=== PATIENT | male | born 1990 | race Caucasian/White ===

== ENCOUNTER 2017-07-28 12:18 | Inpatient (IN) | payer SELFPAY ==
[2017-07-28] MEDS ORDERED: Sodium Chloride 0.9% 10 ML Syringe FLUSH PRN (12:43)
[2017-07-28] MEDS ORDERED: Ondansetron 4 MG/2 ML SDV IVPUSH ONE (12:43)
[2017-07-28] MEDS ORDERED: HYDROmorphone 0.5 MG/0.5 ML SYRINGE IVPUSH ONE ×3 (12:43→21:52)
[2017-07-28] MEDS ORDERED: Sodium Chloride 0.9% 1,000 ML IV ONE (12:43)
[2017-07-28] MEDS ORDERED: Pantoprazole 40 MG Vial IVPUSH ONE (12:43)
--- NOTE | 2017-07-28 12:51 | EDM.PDOC ---
ED HPI GENERAL MEDICAL PROBLEM - General Chief Complaint: Abdominal Pain Stated Complaint: ABDOMINAL PAIN Time Seen by Provider: 07/28/17 12:36 Source of Information: Reports: Patient History Limitations: Reports: No Limitations - History of Present Illness INITIAL COMMENTS - FREE TEXT/NARRATIVE: Patient is a 27-year-old male who presents the ED complaining of generalized abdominal discomfort with nausea and vomiting. This started approximately 2:00 this morning abruptly. Since then the vomiting has persisted. Unable to keep any liquids or foods down. He's had no diarrhea. Pain to the abdomen is described as a sharp dull achy sensation that bores through to his back. He has no history of symptoms as such. Last bowel movement was yesterday and described as normal with no blood present. He's had no bowel movement or passing gases today. He has no documented abdominal surgeries. Nor does he complain of any fever as of recent. Denies any ingestion or better questional food or recent sick contact. Patient does admit to drinking alcohol daily. States over the weekend patient consumed alcohol heavily. Normally drinks a few shots every evening. He does continue to work daily. Denies any recreational drug use. Patient does not smoke. Has no additional past medical history and currently taking no medications. He has no history of pancreatitis and or GI bleed. Denies any fever, chills, chest pain, sob, dysuria, rash, or any additional c/o' s. Treatments [employer]: Reports: Other (see below) Other Treatments [employer]: none Abdomen Pain Score (Numeric/FACES): 10 - Related Data Allergies Allergy/AdvReac Type Severity Reaction Status Date / Time No Known Allergies Allergy Verified 07/28/17 12:32 Home Meds: Home Meds . [No Known Home Meds] 07/28/17 [History] Past Medical History - Past Health History Medical/Surgical History: Denies Medical/Surgical History Social & Family History - Tobacco Use Smoking Status *Q: Never Smoker - Caffeine Use Caffeine Use: Reports: Coffee, Energy Drinks - Recreational Drug Use Recreational Drug Use: No ED ROS GENERAL - Review of Systems Review Of Systems: ROS reveals no pertinent complaints other than HPI. ED EXAM, GI/ABD - Physical Exam Exam: See Below Exam Limited By: No Limitations General Appearance: Alert, WD/WN, Moderate Distress Ears: Hearing Grossly Normal Nose: Normal Inspection Throat/Mouth: Normal Voice, No Airway Compromise Neck: Normal Inspection, Supple Respiratory/Chest: No Respiratory Distress, Lungs Clear, Normal Breath Sounds, No Accessory Muscle Use, Chest Non-Tender Cardiovascular: Normal Peripheral Pulses, Regular Rate, Rhythm GI/Abdominal Exam: Normal Bowel Sounds, Soft, No Organomegaly, No Distention, Tender (diffuse tenderness with point of maximal pain at the epigastric region. ) Back Exam: Normal Inspection. No: CVA Tenderness (L), CVA Tenderness (R) Neurological: Alert, Oriented, CN II-XII Intact, Normal Cognition, No Motor/ Sensory Deficits Psychiatric: Normal Affect, Normal Mood Skin Exam: Warm, Dry, Intact, Normal Color, No Rash Course - Vital Signs Last Recorded V/S: Last Vital Signs Temp 97.0 F 07/28/17 12:31 Pulse 107 H 07/28/17 12:31 Resp 20 07/28/17 12:31 BP 165/103 H 07/28/17 12:31 Pulse Ox 100 07/28/17 12:31 - Orders/Labs/Meds Orders: Active Orders 24 hr Category Date Time Status Peripheral IV Care [RC] . DIRECTED Care 07/28/17 12:43 Active DRUG SCREEN, URINE [URCHEM] Stat Lab 07/28/17 12:35 Ordered LDH, ISOENZYMES [REF] Stat Lab 07/28/17 16:11 Ordered LIPID PANEL [CHEM] Stat Lab 07/28/17 16:11 Ordered UA W/MICROSCOPIC [URIN] Stat Lab 07/28/17 12:35 Ordered Sodium Chloride 0.9% [Normal Saline] 1,000 ml Med 07/28/17 12:43 Active IV ONETIME Sodium Chloride 0.9% [Saline Flush] Med 07/28/17 12:43 Active 10 ml FLUSH ASDIRECTED PRN Peripheral IV Insertion Adult [OM.PC] Routine Oth 07/28/17 12:43 Ordered Medication Orders Sodium Chloride (Normal Saline) 1,000 mls @ 250 mls/hr IV ONETIME ONE Stop: 07/28/17 16:42 Last Admin: 07/28/17 12:56 Dose: 250 mls/hr Sodium Chloride (Saline Flush) 10 ml FLUSH ASDIRECTED PRN PRN Reason: Keep Vein Open Last Admin: 07/28/17 12:55 Dose: 10 ml Labs: Laboratory Tests 07/28/17 07/28/17 07/28/17 Range/Units 12:35 12:35 12:55 WBC 11.22 H (4.23-9.07) K/mm3 RBC 4.49 L (4.63-6.08) M/mm3 Hgb 16.0 (13.7-17.5) gm/L Hct 44.9 (40.1-51.0) % MCV 100.0 H (79.0-92.2) fl MCH 35.6 H (25.7-32.2) pg MCHC 35.6 H (32.2-35.5) g/dl RDW Std Deviation 51.1 H (35.1-43.9) fL Plt Count 288 (163-337) K/mm3 MPV 9.7 (9.4-12.3) fl Neutrophils % (Manual) 76 H (40-60) % Band Neutrophils % 9 (0-10) % Lymphocytes % (Manual) 10 L (20-40) % Atypical Lymphs % 0 % Monocytes % (Manual) 5 (2-10) % Eosinophils % (Manual) 0 L (0.8-7.0) % Basophils % (Manual) 0 L (0.2-1.2) Platelet Estimate Adequate RBC Morph Comment Normal Sodium (136-145) mEq/L Potassium (3.5-5.1) mEq/L Chloride (98-107) mEq/L Carbon Dioxide (21-32) mEq/L Anion Gap (5-15) BUN (7-18) mg/dL Creatinine (0.7-1.3) mg/dL Est Cr Clr Drug Dosing mL/min Estimated GFR (MDRD) (>60) mL/min BUN/Creatinine Ratio (14-18) Glucose (74-106) mg/dL Hemoglobin A1c (4.50-6.20) % Calcium (8.5-10.1) mg/dL Total Bilirubin (0.2-1.0) mg/dL AST (15-37) U/L ALT (16-63) U/L Alkaline Phosphatase (46-116) U/L C-Reactive Protein (<1.0) mg/dL Total Protein (6.4-8.2) g/dl Albumin (3.4-5.0) g/dl Globulin gm/dL Albumin/Globulin Ratio (1-2) Lipase (73-393) U/L Urine Color Yellow (Yellow) Urine Appearance Clear (Clear) Urine pH 6.0 (5.0-8.0) Ur Specific [place] > or = 1.030 (1.005-1.030) Urine Protein 1+ H (Negative) Urine Glucose (UA) Negative (Negative) Urine Ketones Negative (Negative) Urine Occult Blood Negative (Negative) Urine Nitrite Negative (Negative) Urine Bilirubin Negative (Negative) Urine Urobilinogen 0.2 (0.2-1.0) Ur Leukocyte Esterase Negative (Negative) Urine RBC 0-5 (0-5) /hpf Urine WBC 0-5 (0-5) /hpf Ur Epithelial Cells Not seen (0-5) /hpf Urine Bacteria Few (FEW) /hpf Urine Mucus Few (FEW) /hpf Urine Opiates Screen Presumptive positive H (NEGATIVE) Ur Buprenorphine Scrn Negative (NEGATIVE) Ur Oxycodone Screen Negative (NEGATIVE) Urine Methadone Screen Negative (NEGATIVE) Ur Propoxyphene Screen Negative (NEGATIVE) Ur Barbiturates Screen Negative (NEGATIVE) Ur Tricyclics Screen Negative (NEGATIVE) Ur Phencyclidine Scrn Negative (NEGATIVE) Ur Amphetamine Screen Negative (NEGATIVE) U Methamphetamines Scrn Negative (NEGATIVE) U Benzodiazepines Scrn Presumptive positive H (NEGATIVE) U Cocaine Metab Screen Presumptive positive H (NEGATIVE) U Marijuana (THC) Screen Negative (NEGATIVE) Ethyl Alcohol (0.00) gm% 07/28/17 07/28/17 07/28/17 Range/Units 12:55 12:55 12:55 WBC (4.23-9.07) K/mm3 RBC (4.63-6.08) M/mm3 Hgb (13.7-17.5) gm/L Hct (40.1-51.0) % MCV (79.0-92.2) fl MCH (25.7-32.2) pg MCHC (32.2-35.5) g/dl RDW Std Deviation (35.1-43.9) fL Plt Count (163-337) K/mm3 MPV (9.4-12.3) fl Neutrophils % (Manual) (40-60) % Band Neutrophils % (0-10) % Lymphocytes % (Manual) (20-40) % Atypical Lymphs % % Monocytes % (Manual) (2-10) % Eosinophils % (Manual) (0.8-7.0) % Basophils % (Manual) (0.2-1.2) Platelet Estimate RBC Morph Comment Sodium 142 (136-145) mEq/L Potassium 3.5 (3.5-5.1) mEq/L Chloride 100 (98-107) mEq/L Carbon Dioxide 27 (21-32) mEq/L Anion Gap 18.5 H (5-15) BUN 5 L (7-18) mg/dL Creatinine 1.0 (0.7-1.3) mg/dL Est Cr Clr Drug Dosing 131.29 mL/min Estimated GFR (MDRD) > 60 (>60) mL/min BUN/Creatinine Ratio 5.0 L (14-18) Glucose 160 H (74-106) mg/dL Hemoglobin A1c 5.00 (4.50-6.20) % Calcium 8.9 (8.5-10.1) mg/dL Total Bilirubin 0.5 (0.2-1.0) mg/dL AST 53 H (15-37) U/L ALT 52 (16-63) U/L Alkaline Phosphatase 70 (46-116) U/L C-Reactive Protein < 0.2 (<1.0) mg/dL Total Protein 7.4 (6.4-8.2) g/dl Albumin 4.4 (3.4-5.0) g/dl Globulin 3.0 gm/dL Albumin/Globulin Ratio 1.5 (1-2) Lipase 5814 H (73-393) U/L Urine Color (Yellow) Urine Appearance (Clear) Urine pH (5.0-8.0) Ur Specific [place] (1.005-1.030) Urine Protein (Negative) Urine Glucose (UA) (Negative) Urine Ketones (Negative) Urine Occult Blood (Negative) Urine Nitrite (Negative) Urine Bilirubin (Negative) Urine Urobilinogen (0.2-1.0) Ur Leukocyte Esterase (Negative) Urine RBC (0-5) /hpf Urine WBC (0-5) /hpf Ur Epithelial Cells (0-5) /hpf Urine Bacteria (FEW) /hpf Urine Mucus (FEW) /hpf Urine Opiates Screen (NEGATIVE) Ur Buprenorphine Scrn (NEGATIVE) Ur Oxycodone Screen (NEGATIVE) Urine Methadone Screen (NEGATIVE) Ur Propoxyphene Screen (NEGATIVE) Ur Barbiturates Screen (NEGATIVE) Ur Tricyclics Screen (NEGATIVE) Ur Phencyclidine Scrn (NEGATIVE) Ur Amphetamine Screen (NEGATIVE) U Methamphetamines Scrn (NEGATIVE) U Benzodiazepines Scrn (NEGATIVE) U Cocaine Metab Screen (NEGATIVE) U Marijuana (THC) Screen (NEGATIVE) Ethyl Alcohol 0.00 (0.00) gm% Meds: Medications Generic Name Dose Route Start Last Admin Trade Name Freq PRN Reason Stop Dose Admin Sodium Chloride 1,000 mls @ 250 mls/hr 07/28/17 12:43 07/28/17 12:56 Normal Saline IV 07/28/17 16:42 250 mls/hr ONETIME ONE Administration Sodium Chloride 10 ml 07/28/17 12:43 07/28/17 12:55 Saline Flush FLUSH 10 ml ASDIRECTED PRN Administration Keep Vein Open Discontinued Medications Generic Name Dose Route Start Last Admin Trade Name Freq PRN Reason Stop Dose Admin Diatrizoate Meglum/Diatrizoate Sod 90 ml 07/28/17 14:36 07/28/17 15:48 Gastrografin 37% PO 07/28/17 14:37 90 ml ONETIME ONE Administration Dicyclomine HCl 20 mg 07/28/17 14:14 07/28/17 14:28 Bentyl PO 07/28/17 14:15 20 mg ONETIME ONE Administration Hydromorphone HCl 0.5 mg 07/28/17 12:43 07/28/17 12:56 Dilaudid IVPUSH 07/28/17 12:44 0.5 mg ONETIME ONE Administration Hydromorphone HCl 0.5 mg 07/28/17 14:53 07/28/17 15:03 Dilaudid IVPUSH 07/28/17 14:54 0.5 mg ONETIME ONE Administration Iopamidol 125 ml 07/28/17 14:36 07/28/17 15:48 Isovue-300 (61%) IVPUSH 07/28/17 14:37 125 ml ONETIME ONE Administration Ondansetron HCl 4 mg 07/28/17 12:43 07/28/17 12:55 Zofran IVPUSH 07/28/17 12:44 4 mg ONETIME ONE Administration Pantoprazole Sodium 40 mg 07/28/17 12:43 07/28/17 12:55 Protonix Iv IVPUSH 07/28/17 12:44 40 mg ONETIME ONE Administration Sodium Chloride 10 ml 07/28/17 14:36 07/28/17 15:48 Saline Flush FLUSH 07/28/17 14:37 10 ml ONETIME ONE Administration - Re-Assessments/Exams Free Text/Narrative Re-Assessment/Exam: On examination patient is quite uncomfortable with point maximal pain is to the epigastric region. Patient does consume alcohol on a chronic basis daily. Denies being a alcoholic. He's been unable to keep any liquids or foods down. Suspect cause of discomfort is most likely pancreatitis. IV established with normal saline, Dilaudid 0.5 mg IVP, Zofran 4 mg IVP, and Protonix 40 mg IVP. Initial labs and studies include CBC, chem 14, CRP, urine drug test, lipase, UA , serum EtOH, and CT the abdomen and pelvis with oral and IV contrast. Oral contrast started after n/v subsides. 07/28/17 12:[address] machine is down for about 2 hrs. Will order 2 view of the abdomen. If no finding concerning for obstruction will order abdomen limited ultrasound. 07/28/17 13:20 Reviewed x-ray of the abdomen with Dr. Shannon. No signs of obstruction. Increased stool pattern noted. Will await for all labs prior to obtaining additional studies. 07/28/17 14:14 Reassessment, patient states pain is still a 6/10 admits to utilizing all positive findings on urine drug tox. States last used 1 month prior. Continue to have pain to the abdomen sharp in nature. Ordered bentyl 20mg PO. Labs reviewed: White blood cell 11.22, hemoglobin 16.0, MCV elevated at 100 suggesting chronic alcoholism, platelet count 288, mildly increasing neutrophil percentage with no left shift. Sodium 142, potassium 3.5, hCG elevated 18.5, creatinine 1.0, glucose 160, AST 53, CRP less than 0.2, and lipase 5814. Patient has acute pancreatitis. LFTs indicated only mild elevation in AST at 53. No increase in total bilirubin or alk phosphatase. UA positive for protein one plus. No concerning findings. Urine drug tox positive for opiates, benzodiazepines, cocaine. Serum EtOH 0.00. CT the abdomen and pelvis pending. 07/28/17 15:32 A1C 5.oo. patient is not a diabetic. 07/28/17 16:02 CT of the abdomen/pelvis impression: 1. Findings compatible with fairly severe pancreatitis. Fluid noted within the paracolic gutters extending into the pelvis. 2. Fatty infiltration within the liver. 3. Small hiatal hernia with gastroesophageal reflux of contrast. [address] Melchor with no answer will try again in a few minutes. 07/28/17 16:[address] Melchor. He has agreed to accept the patient. Requests ICU placement. Departure - Departure Time of Disposition: 14:51 Disposition: Admitted As Inpatient 68 Condition: Good Clinical Impression: Drug dependence, Alcoholism /alcohol abuse Pancreatitis Qualifiers: Chronicity: acute Pancreatitis type: alcohol induced Acute pancreatitis complication: uninfected necrosis Qualified Code(s): K85.21 - Alcohol induced acute pancreatitis with uninfected necrosis - Discharge Information Instructions: Chemical Dependency, Abdominal Pain, Adult, [id number] Referrals: PCP,None [Primary Care Provider] - Forms: ED Department Discharge - My Orders Last 24 Hours: My Active Orders 07/28/17 12:35 DRUG SCREEN, URINE [URCHEM] Stat UA W/MICROSCOPIC [URIN] Stat 07/28/17 12:43 Peripheral IV Care [RC] . DIRECTED Sodium Chloride 0.9% [Normal Saline] 1,000 ml IV ONETIME Sodium Chloride 0.9% [Saline Flush] 10 ml FLUSH ASDIRECTED PRN Peripheral IV Insertion Adult [OM.PC] Routine - Assessment/Plan Last 24 Hours: My Active Orders 07/28/17 12:35 DRUG SCREEN, URINE [URCHEM] Stat UA W/MICROSCOPIC [URIN] Stat 07/28/17 12:43 Peripheral IV Care [RC] . DIRECTED Sodium Chloride 0.9% [Normal Saline] 1,000 ml IV ONETIME Sodium Chloride 0.9% [Saline Flush] 10 ml FLUSH ASDIRECTED PRN Peripheral IV Insertion Adult [OM.PC] Routine
[2017-07-28] MEDS ORDERED: Dicyclomine 10 MG Cap PO ONE (14:14)
--- NOTE | 2017-07-28 14:34 | CR ---
Abdomen: Supine and upright views of the abdomen were obtained. Comparison: No previous study. Bowel gas pattern is normal. Small calcification is seen within the lower left pelvis most likely phlebolith. Minimal scoliosis is noted within the spine. No free air is seen. No soft tissue abnormality is seen. Impression: 1. Incidental findings. Diagnostic code #2
[2017-07-28] MEDS ORDERED: Diatrizoate Meglumine/Diatrizoate Sodium 37% 120 ML Bottle PO ONE (14:36)
[2017-07-28] MEDS ORDERED: Iopamidol 612 MG/ML 150 ML Bottle IVPUSH ONE (14:36)
[2017-07-28] MEDS: Sodium Chloride 0.9% 10 ML Syringe FLUSH ONE ×2 (15:04→15:48)
--- NOTE | 2017-07-28 16:02 | CT ---
CT abdomen and pelvis Technique: Multiple axial sections were obtained from above the dome of the diaphragm inferiorly through the pubic symphysis. Intravenous and oral contrast was utilized. Delayed images were also obtained from above the dome of the diaphragm inferiorly to the pubic symphysis. Comparison: Prior abdominal x-ray performed earlier on the same day. Findings: Small portion of the visualized lung bases are clear. Liver shows mild fatty infiltration. Spleen appears within normal limits. Small hiatal hernia is seen with gastroesophageal reflux of contrast. Adrenal glands show no nodule. Gallbladder contains no calcified gallstones. Kidneys show contrast enhancement without hydronephrosis or mass. Delayed images shows contrast excretion from both kidneys as well as contrast within nondilated ureters and contrast also seen within the bladder. Diffuse inflammatory change is seen around the pancreas. Fluid is seen within both paracolic gutters as well as within the pelvis. No loculated fluid collection are seen at this time. Aorta shows no aneurysmal dilatation. No retroperitoneal adenopathy or mesenteric abnormalities are seen. No additional pelvic abnormality is seen. Bone window settings were reviewed which appear within normal limits for the patient's age. Impression: 1. Findings compatible with fairly severe pancreatitis. Fluid noted within the paracolic gutters extending into the pelvis. 2. Fatty infiltration within the liver. 3. Small hiatal hernia with gastroesophageal reflux of contrast. Diagnostic code #5
[2017-07-28] MEDS ORDERED: LORazepam 2 MG/ML SDV IVPUSH PRN (17:26)
[2017-07-28] MEDS ORDERED: Metoprolol Tartrate 5 MG/5 ML SDV IVPUSH PRN (17:26)
[2017-07-28] MEDS ORDERED: Ondansetron 4 MG/2 ML SDV IV PRN (17:39)
[2017-07-28] MEDS ORDERED: Bisacodyl 5 MG Tab PO PRN (17:39)
[2017-07-28] MEDS ORDERED: Albuterol/Ipratropium 3.0-0.5 MG/3 ML Neb Soln NEB PRN (17:39)
[2017-07-28] MEDS ORDERED: Docusate Sodium 100 MG Cap PO PRN (17:39)
[2017-07-28] MEDS ORDERED: Polyethylene Glycol 3350 Powder 17 GM Packet PO PRN (17:39)
[2017-07-28] MEDS ORDERED: Promethazine 12.5 MG in Sodium Chloride 0.9% 50 ML IV PRN (17:39)
[2017-07-28] MEDS ORDERED: cloNIDine 0.1 MG Tab PO PRN (17:50)
[2017-07-28] MEDS: HYDROmorphone 0.5 MG/0.5 ML SYRINGE IVPUSH PRN ×2 (18:14→19:59)
[2017-07-28] MEDS: Ibuprofen 600 MG Tab PO PRN (18:15)
[2017-07-28] MEDS: Potassium Chloride 20 MEQ Tab.ER PO SCH ×4 (18:15→22:41)
--- NOTE | 2017-07-28 18:22 | PCM.HP ---
H&P History of Present Illness - General Date of Service: 07/28/17 Admit Problem/Dx: Admission Diagnosis/Problem Admission Diagnosis/Problem Pancreatitis Source of Information: Patient, Family, Provider History Limitations: Reports: No Limitations - History of Present Illness Initial Comments - Free Text/Narative: This is a 27 yo male with past medical hx/o EtOH and drug abuse who comes in for abdominal pain, nausea and vomiting. Pain started at 2 AM this morning, patient rates it a 10 out of 10 and describes it as a sharp, dull, achy sensation that bores through to his back. He reports no fever, chills, headache , diarrhea, chest pain, shortness of breath, or complaints. His symptoms improved after receiving IV fluids, Zofran, Dilaudid, Bentyl, and Protonix in the ED. His initial workup in the ED showed a CBC with Hgb 16, Hct 44.9, Plt 288, remarkable for elevated WBC 11.22 and MCV 100. His chemistry showed Na 142, potassium 3.5, BUN 5, creatinine 1.0, ALT 52, CRP <0.02 and is remarkable for elevated glucose 160, Anion Gap 18.5, AST 53, and lipase 5814. UA is not impressive for UTI. Toxicology screen is positive for opiates, benzodiazepines, cocaine and negative for EtOH. Abdominal X-ray shows no acute abnormal findings. Abdominal CT showed severe pancreatitis. He is subsequently admitted to the ICU. He is a full code. Abdomen Pain Score (Numeric/FACES): 10 - Related Data Allergies/Adverse Reactions: Allergies Allergy/AdvReac Type Severity Reaction Status Date / Time No Known Allergies Allergy Verified 07/28/17 12:32 Home Medications: Home Meds . [No Known Home Meds] 07/28/17 [History] Past Medical History - Past Health History Medical/Surgical History: Denies Medical/Surgical History Social & Family History - Tobacco Use Smoking Status *Q: Never Smoker - Caffeine Use Caffeine Use: Reports: Coffee, Energy Drinks - Recreational Drug Use Recreational Drug Use: No H&P Review of Systems - Review of Systems: Review Of Systems: See Below General: Reports: No Symptoms. Denies: Fever, Chills HEENT: Reports: No Symptoms, Glasses Pulmonary: Reports: No Symptoms Cardiovascular: Reports: No Symptoms Gastrointestinal: Reports: Abdominal Pain (11/27). Denies: Bloody Stool, Diarrhea, Decreased Appetite Genitourinary: Reports: No Symptoms Musculoskeletal: Reports: No Symptoms Skin: Reports: No Symptoms Psychiatric: Reports: No Symptoms Neurological: Reports: No Symptoms Hematologic/Lymphatic: Reports: No Symptoms Immunologic: Reports: No Symptoms Exam - Exam Exam: See Below - Vital Signs Vital Signs: Last Vital Signs Temp 97.0 F 07/28/17 12:31 Pulse 107 H 07/28/17 12:31 Resp 20 07/28/17 12:31 BP 165/103 H 07/28/17 12:31 Pulse Ox 100 07/28/17 12:31 Weight: 190 lb - Exam Quality Assessment: No: Supplemental Oxygen General: Alert, Oriented, Cooperative, Moderate Distress HEENT: Conjunctiva Clear, EACs Clear, EOMI, Hearing Intact, Mucosa Moist & [place] , Nares Patent, Normal Nasal Septum, Posterior Pharynx Clear, Glasses Neck: Supple, Trachea Midline, 2 Lungs: Clear to Auscultation, Normal Respiratory Effort Cardiovascular: Regular Rhythm, Tachycardia GI/Abdominal Exam: Normal Bowel Sounds, Soft, No Organomegaly, No Distention, Tender (diffuse tenderness, maximal pain in epigastric region) (Male) Exam: Deferred Rectal (Males) Exam: Deferred Back Exam: Normal Inspection, Full Range of Motion, NT Extremities: Normal Inspection, Normal Range of Motion, Non-Tender, No Pedal Edema, Normal Capillary Refill Peripheral Pulses: 2+: Posterior Tibial (L), Posterior Tibial (R), Dorsalis Pedis (L), Dorsalis Pedis (R) Skin: Warm, Dry, Intact Neurological: Cranial Nerves Intact (grossly) Neuro Extensive - Mental Status: Alert, Oriented x3, Normal Mood/Affect, Normal Cognition - Patient Data Lab Results Last 24 hrs: Laboratory Results - last 24 hr 07/28/17 07/28/17 07/28/17 Range/Units 12:35 12:35 12:55 WBC 11.22 H (4.23-9.07) K/mm3 RBC 4.49 L (4.63-6.08) M/mm3 Hgb 16.0 (13.7-17.5) gm/L Hct 44.9 (40.1-51.0) % MCV 100.0 H (79.0-92.2) fl MCH 35.6 H (25.7-32.2) pg MCHC 35.6 H (32.2-35.5) g/dl RDW Std Deviation 51.1 H (35.1-43.9) fL Plt Count 288 (163-337) K/mm3 MPV 9.7 (9.4-12.3) fl Neutrophils % (Manual) 76 H (40-60) % Band Neutrophils % 9 (0-10) % Lymphocytes % (Manual) 10 L (20-40) % Atypical Lymphs % 0 % Monocytes % (Manual) 5 (2-10) % Eosinophils % (Manual) 0 L (0.8-7.0) % Basophils % (Manual) 0 L (0.2-1.2) Platelet Estimate Adequate RBC Morph Comment Normal Sodium (136-145) mEq/L Potassium (3.5-5.1) mEq/L Chloride (98-107) mEq/L Carbon Dioxide (21-32) mEq/L Anion Gap (5-15) BUN (7-18) mg/dL Creatinine (0.7-1.3) mg/dL Est Cr Clr Drug Dosing mL/min Estimated GFR (MDRD) (>60) mL/min BUN/Creatinine Ratio (14-18) Glucose (74-106) mg/dL Hemoglobin A1c (4.50-6.20) % Calcium (8.5-10.1) mg/dL Total Bilirubin (0.2-1.0) mg/dL AST (15-37) U/L ALT (16-63) U/L Alkaline Phosphatase (46-116) U/L Lactate Dehydrogenase (85-227) U/L C-Reactive Protein (<1.0) mg/dL Total Protein (6.4-8.2) g/dl Albumin (3.4-5.0) g/dl Globulin gm/dL Albumin/Globulin Ratio (1-2) Triglycerides (<150) mg/dL Cholesterol (<200) mg/dL LDL Cholesterol Direct (<100) mg/dL HDL Cholesterol (40-59) mg/dL Lipase (73-393) U/L Urine Color Yellow (Yellow) Urine Appearance Clear (Clear) Urine pH 6.0 (5.0-8.0) Ur Specific Dennis > or = 1.030 (1.005-1.030) Urine Protein 1+ H (Negative) Urine Glucose (UA) Negative (Negative) Urine Ketones Negative (Negative) Urine Occult Blood Negative (Negative) Urine Nitrite Negative (Negative) Urine Bilirubin Negative (Negative) Urine Urobilinogen 0.2 (0.2-1.0) Ur Leukocyte Esterase Negative (Negative) Urine RBC 0-5 (0-5) /hpf Urine WBC 0-5 (0-5) /hpf Ur Epithelial Cells Not seen (0-5) /hpf Urine Bacteria Few (FEW) /hpf Urine Mucus Few (FEW) /hpf Urine Opiates Screen Presumptive positive H (NEGATIVE) Ur Buprenorphine Scrn Negative (NEGATIVE) Ur Oxycodone Screen Negative (NEGATIVE) Urine Methadone Screen Negative (NEGATIVE) Ur Propoxyphene Screen Negative (NEGATIVE) Ur Barbiturates Screen Negative (NEGATIVE) Ur Tricyclics Screen Negative (NEGATIVE) Ur Phencyclidine Scrn Negative (NEGATIVE) Ur Amphetamine Screen Negative (NEGATIVE) U Methamphetamines Scrn Negative (NEGATIVE) U Benzodiazepines Scrn Presumptive positive H (NEGATIVE) U Cocaine Metab Screen Presumptive positive H (NEGATIVE) U Marijuana (THC) Screen Negative (NEGATIVE) Ethyl Alcohol (0.00) gm% 07/28/17 07/28/17 07/28/17 Range/Units 12:55 12:55 12:55 WBC (4.23-9.07) K/mm3 RBC (4.63-6.08) M/mm3 Hgb (13.7-17.5) gm/L Hct (40.1-51.0) % MCV (79.0-92.2) fl MCH (25.7-32.2) pg MCHC (32.2-35.5) g/dl RDW Std Deviation (35.1-43.9) fL Plt Count (163-337) K/mm3 MPV (9.4-12.3) fl Neutrophils % (Manual) (40-60) % Band Neutrophils % (0-10) % Lymphocytes % (Manual) (20-40) % Atypical Lymphs % % Monocytes % (Manual) (2-10) % Eosinophils % (Manual) (0.8-7.0) % Basophils % (Manual) (0.2-1.2) Platelet Estimate RBC Morph Comment Sodium 142 (136-145) mEq/L Potassium 3.5 (3.5-5.1) mEq/L Chloride 100 (98-107) mEq/L Carbon Dioxide 27 (21-32) mEq/L Anion Gap 18.5 H (5-15) BUN 5 L (7-18) mg/dL Creatinine 1.0 (0.7-1.3) mg/dL Est Cr Clr Drug Dosing 131.29 mL/min Estimated GFR (MDRD) > 60 (>60) mL/min BUN/Creatinine Ratio 5.0 L (14-18) Glucose 160 H (74-106) mg/dL Hemoglobin A1c 5.00 (4.50-6.20) % Calcium 8.9 (8.5-10.1) mg/dL Total Bilirubin 0.5 (0.2-1.0) mg/dL AST 53 H (15-37) U/L ALT 52 (16-63) U/L Alkaline Phosphatase 70 (46-116) U/L Lactate Dehydrogenase (85-227) U/L C-Reactive Protein < 0.2 (<1.0) mg/dL Total Protein 7.4 (6.4-8.2) g/dl Albumin 4.4 (3.4-5.0) g/dl Globulin 3.0 gm/dL Albumin/Globulin Ratio 1.5 (1-2) Triglycerides (<150) mg/dL Cholesterol (<200) mg/dL LDL Cholesterol Direct (<100) mg/dL HDL Cholesterol (40-59) mg/dL Lipase 5814 H (73-393) U/L Urine Color (Yellow) Urine Appearance (Clear) Urine pH (5.0-8.0) Ur Specific Dennis (1.005-1.030) Urine Protein (Negative) Urine Glucose (UA) (Negative) Urine Ketones (Negative) Urine Occult Blood (Negative) Urine Nitrite (Negative) Urine Bilirubin (Negative) Urine Urobilinogen (0.2-1.0) Ur Leukocyte Esterase (Negative) Urine RBC (0-5) /hpf Urine WBC (0-5) /hpf Ur Epithelial Cells (0-5) /hpf Urine Bacteria (FEW) /hpf Urine Mucus (FEW) /hpf Urine Opiates Screen (NEGATIVE) Ur Buprenorphine Scrn (NEGATIVE) Ur Oxycodone Screen (NEGATIVE) Urine Methadone Screen (NEGATIVE) Ur Propoxyphene Screen (NEGATIVE) Ur Barbiturates Screen (NEGATIVE) Ur Tricyclics Screen (NEGATIVE) Ur Phencyclidine Scrn (NEGATIVE) Ur Amphetamine Screen (NEGATIVE) U Methamphetamines Scrn (NEGATIVE) U Benzodiazepines Scrn (NEGATIVE) U Cocaine Metab Screen (NEGATIVE) U Marijuana (THC) Screen (NEGATIVE) Ethyl Alcohol 0.00 (0.00) gm% 07/28/17 07/28/17 Range/Units 13:55 13:55 WBC (4.23-9.07) K/mm3 RBC (4.63-6.08) M/mm3 Hgb (13.7-17.5) gm/L Hct (40.1-51.0) % MCV (79.0-92.2) fl MCH (25.7-32.2) pg MCHC (32.2-35.5) g/dl RDW Std Deviation (35.1-43.9) fL Plt Count (163-337) K/mm3 MPV (9.4-12.3) fl Neutrophils % (Manual) (40-60) % Band Neutrophils % (0-10) % Lymphocytes % (Manual) (20-40) % Atypical Lymphs % % Monocytes % (Manual) (2-10) % Eosinophils % (Manual) (0.8-7.0) % Basophils % (Manual) (0.2-1.2) Platelet Estimate RBC Morph Comment Sodium (136-145) mEq/L Potassium (3.5-5.1) mEq/L Chloride (98-107) mEq/L Carbon Dioxide (21-32) mEq/L Anion Gap (5-15) BUN (7-18) mg/dL Creatinine (0.7-1.3) mg/dL Est Cr Clr Drug Dosing mL/min Estimated GFR (MDRD) (>60) mL/min BUN/Creatinine Ratio (14-18) Glucose (74-106) mg/dL Hemoglobin A1c (4.50-6.20) % Calcium (8.5-10.1) mg/dL Total Bilirubin (0.2-1.0) mg/dL AST (15-37) U/L ALT (16-63) U/L Alkaline Phosphatase (46-116) U/L Lactate Dehydrogenase 431 H (85-227) U/L C-Reactive Protein (<1.0) mg/dL Total Protein (6.4-8.2) g/dl Albumin (3.4-5.0) g/dl Globulin gm/dL Albumin/Globulin Ratio (1-2) Triglycerides 301 H (<150) mg/dL Cholesterol 167 (<200) mg/dL LDL Cholesterol Direct 71 (<100) mg/dL HDL Cholesterol 61.0 H (40-59) mg/dL Lipase (73-393) U/L Urine Color (Yellow) Urine Appearance (Clear) Urine pH (5.0-8.0) Ur Specific Dennis (1.005-1.030) Urine Protein (Negative) Urine Glucose (UA) (Negative) Urine Ketones (Negative) Urine Occult Blood (Negative) Urine Nitrite (Negative) Urine Bilirubin (Negative) Urine Urobilinogen (0.2-1.0) Ur Leukocyte Esterase (Negative) Urine RBC (0-5) /hpf Urine WBC (0-5) /hpf Ur Epithelial Cells (0-5) /hpf Urine Bacteria (FEW) /hpf Urine Mucus (FEW) /hpf Urine Opiates Screen (NEGATIVE) Ur Buprenorphine Scrn (NEGATIVE) Ur Oxycodone Screen (NEGATIVE) Urine Methadone Screen (NEGATIVE) Ur Propoxyphene Screen (NEGATIVE) Ur Barbiturates Screen (NEGATIVE) Ur Tricyclics Screen (NEGATIVE) Ur Phencyclidine Scrn (NEGATIVE) Ur Amphetamine Screen (NEGATIVE) U Methamphetamines Scrn (NEGATIVE) U Benzodiazepines Scrn (NEGATIVE) U Cocaine Metab Screen (NEGATIVE) U Marijuana (THC) Screen (NEGATIVE) Ethyl Alcohol (0.00) gm% Result Diagrams: 07/28/17 12:55 07/28/17 12:55 - Problem List (1) Hiatal hernia with gastroesophageal reflux SNOMED Code(s): 536068471 ICD Code: K21.9 - GASTRO-ESOPHAGEAL REFLUX DISEASE WITHOUT ESOPHAGITIS; K44.9 - DIAPHRAGMATIC HERNIA WITHOUT OBSTRUCTION OR GANGRENE Status: Acute Priority: Low Current Visit: Yes (2) Alcoholism /alcohol abuse SNOMED Code(s): 5940705 ICD Code: F10.20 - ALCOHOL DEPENDENCE, UNCOMPLICATED Status: Acute Priority: High Current Visit: Yes (3) Drug dependence SNOMED Code(s): 214183045 ICD Code: F19.20 - OTHER PSYCHOACTIVE SUBSTANCE DEPENDENCE, UNCOMPLICATED Status: Acute Priority: High Current Visit: Yes (4) Pancreatitis SNOMED Code(s): 19968134 ICD Code: K85.90 - ACUTE PANCREATITIS WITHOUT NECROSIS OR INFECTION, UNSP Status: Acute Priority: High Current Visit: Yes Qualifiers: Chronicity: acute Pancreatitis type: alcohol induced Acute pancreatitis complication: uninfected necrosis Qualified Code(s): K85.21 - Alcohol induced acute pancreatitis with uninfected necrosis (5) Hypertriglyceridemia SNOMED Code(s): 779241369 ICD Code: E78.1 - PURE HYPERGLYCERIDEMIA Status: Acute Priority: Medium Current Visit: Yes Problem List Initiated/Reviewed/Updated: Yes Orders Last 24hrs: Active Orders 24 hr Category Date Time Status Admission Status [Patient Status] [ADT] Routine ADT 07/28/17 16:46 Active Ambulate [RC] ASDIRECTED Care 07/28/17 17:39 Active CIWAA Assessment [RC] Q1H Care 07/28/17 17:50 Active CIWAA Assessment [RC] Q4H Care 07/28/17 17:50 Active Cardiac Monitoring [RC] CONTINUOUS Care 07/28/17 17:40 Active Height and Weight [RC] DAILY Care 07/28/17 17:39 Active Intake and Output [RC] QSHIFT Care 07/28/17 17:40 Active Notify Provider [RC] PRN Care 07/28/17 17:50 Active Oxygen Therapy [RC] PRN Care 07/28/17 17:39 Active Peripheral IV Care [RC] . DIRECTED Care 07/28/17 12:43 Active RT Aerosol Therapy [RC] ASDIRECTED Care 07/28/17 17:45 Active Up ad Martha [RC] ASDIRECTED Care 07/28/17 17:39 Active VTE/DVT Education [RC] 09,21 Care 07/28/17 17:39 Active Vital Signs [RC] Q4HR Care 07/28/17 17:39 Active Consult for Substance Abuse [CONS] Routine Cons 07/28/17 17:22 Active Consult to Shallot Packer [CONS] Routine Cons 07/28/17 17:45 Active Consult to Spiritual Care [CONS] Routine Cons 07/28/17 17:45 Active Nothing per Oral Now Diet [DIET] Diet 07/28/17 Dinner Active ACETAMINOPHEN [CHEM] Stat Lab 07/28/17 17:40 Received BASIC METABOLIC PANEL,BMP [CHEM] AM Lab 07/29/17 05:11 Ordered BASIC METABOLIC PANEL,BMP [CHEM] AM Lab 07/30/17 05:11 Ordered BASIC METABOLIC PANEL,BMP [CHEM] AM Lab 07/31/17 05:11 Ordered BASIC METABOLIC PANEL,BMP [CHEM] AM Lab 08/01/17 05:11 Ordered BASIC METABOLIC PANEL,BMP [CHEM] AM Lab 08/02/17 05:11 Ordered C-REACTIVE PROTEIN [CHEM] AM Lab 07/29/17 05:11 Ordered C-REACTIVE PROTEIN [CHEM] AM Lab 07/30/17 05:11 Ordered C-REACTIVE PROTEIN [CHEM] AM Lab 07/31/17 05:11 Ordered C-REACTIVE PROTEIN [CHEM] AM Lab 08/01/17 05:11 Ordered C-REACTIVE PROTEIN [CHEM] AM Lab 08/02/17 05:11 Ordered CBC WITH AUTO DIFF [HEME] AM Lab 07/29/17 05:11 Ordered CBC WITH AUTO DIFF [HEME] AM Lab 07/30/17 05:11 Ordered CBC WITH AUTO DIFF [HEME] AM Lab 07/31/17 05:11 Ordered CBC WITH AUTO DIFF [HEME] AM Lab 08/01/17 05:11 Ordered CBC WITH AUTO DIFF [HEME] AM Lab 08/02/17 05:11 Ordered CRP [C-REACTIVE PROTEIN] [CHEM] Stat Lab 07/28/17 17:40 Received DRUG SCREEN, URINE [URCHEM] Stat Lab 07/28/17 12:35 Ordered LACTIC ACID [CHEM] Stat Lab 07/28/17 17:40 Received LIPASE [CHEM] AM Lab 07/29/17 05:11 Ordered MAGNESIUM [CHEM] AM Lab 07/29/17 05:11 Ordered MAGNESIUM [CHEM] AM Lab 07/30/17 05:11 Ordered MAGNESIUM [CHEM] AM Lab 07/31/17 05:11 Ordered MAGNESIUM [CHEM] AM Lab 08/01/17 05:11 Ordered MAGNESIUM [CHEM] AM Lab 08/02/17 05:11 Ordered UA W/MICROSCOPIC [URIN] Stat Lab 07/28/17 12:35 Ordered Albuterol/Ipratropium [DuoNeb 3.0-0.5 MG/3 ML] Med 07/28/17 17:39 Ordered 3 ml NEB Q4H PRN Bisacodyl [Dulcolax] Med 07/28/17 17:39 Ordered 5 mg PO DAILY PRN Dextrose 5%-0.9% NaCl [Dextrose 5%-Normal Saline] 1,000 Med 07/28/17 18:00 Ordered ml IV ASDIRECTED Docusate Sodium [Colace] Med 07/28/17 17:39 Ordered 100 mg PO BID PRN Docusate Sodium/Sennosides [Senna Plus] Med 07/28/17 17:39 Ordered 1 tab PO BID PRN Folic Acid Med 07/29/17 09:00 Ordered 1 mg PO DAILY HYDROmorphone [Dilaudid] Med 07/28/17 17:39 Ordered 0.5 mg IVPUSH Q2H PRN Ibuprofen [Motrin] Med 07/28/17 17:39 Ordered 600 mg PO Q6H PRN LORazepam [Ativan] Med 07/28/17 17:26 Active 2 mg IVPUSH Q4H PRN Magnesium Rep Pharmacy to Dose [Pharmacy to Dose - Med 07/28/17 17:30 Pending Magnesium Replacement] 1 dose .XX ASDIRECTED Metoprolol Tartrate [Lopressor] Med 07/28/17 17:26 Active 5 mg IVPUSH Q4H PRN Multivitamins,Therapeutic [Thera] Med 07/29/17 09:00 Ordered 1 each PO DAILY Ondansetron [Zofran] Med 07/28/17 17:39 Ordered 4 mg IV Q6H PRN Pantoprazole [ProTONIX IV] Med 07/28/17 21:00 Ordered 40 mg IV Q12HR Polyethylene Glycol 3350 [MiraLAX] Med 07/28/17 17:39 Ordered 17 gm PO DAILY PRN Potassium Chloride [Klor-Con M20] Med 07/28/17 17:00 Active 40 meq PO Q4H Potassium Rep Pharmacy to Dose [Pharmacy to Dose - Med 07/28/17 17:30 Pending Potassium Replacement] 1 dose .XX ASDIRECTED Promethazine [Phenergan] 12.5 mg Med 07/28/17 17:39 Ordered Sodium Chloride 0.9% [Normal Saline] 50 ml IV Q6H Sodium Chloride 0.9% [Saline Flush] Med 07/28/17 12:43 Active 10 ml FLUSH ASDIRECTED PRN Temazepam [Restoril] Med 07/28/17 17:56 Ordered 15 mg PO BEDTIME PRN Thiamine [Vitamin B-1] Med 07/29/17 09:00 Ordered 100 mg PO DAILY Thiamine [Vitamin B-1] 200 mg Med 07/28/17 17:50 Ordered Sodium Chloride 0.9% [Normal Saline] 50 ml IV DAILY chlordiazePOXIDE [Librium] Med 07/28/17 17:50 Ordered 25 mg PO Q8H PRN cloNIDine [Catapres] Med 07/28/17 17:50 Ordered 0.1 mg PO Q4H PRN hydrALAZINE [Apresoline] Med 07/28/17 17:26 Active 20 mg IVPUSH Q4H PRN oxyCODONE Med 07/28/17 17:39 Ordered 5 mg PO Q4H PRN Peripheral IV Insertion Adult [OM.PC] Routine Oth 07/28/17 12:43 Ordered Seizure Precautions [OM.PC] Routine Oth 07/28/17 17:50 Ordered Sequential Compression Device [OM.PC] Per Unit Routine Oth 07/28/17 17:40 Ordered Resuscitation Status Routine Resus Stat 07/28/17 17:39 Ordered Medication Orders Albuterol/Ipratropium (Duoneb 3.0-0.5 Mg/3 Ml) 3 ml NEB Q4H PRN PRN Reason: Shortness Of Breath/wheezing Bisacodyl (Dulcolax) 5 mg PO DAILY PRN PRN Reason: Constipation Chlordiazepoxide HCl (Librium) 25 mg PO Q8H PRN PRN Reason: Withdrawal Symptoms Clonidine HCl (Catapres) 0.1 mg PO Q4H PRN PRN Reason: Agitation Docusate Sodium (Colace) 100 mg PO BID PRN PRN Reason: Constipation Folic Acid (Folic Acid) 1 mg PO DAILY [facility] Stop: 07/31/17 09:01 Hydralazine HCl (Apresoline) 20 mg IVPUSH Q4H PRN PRN Reason: Hypertension Hydromorphone HCl (Dilaudid) 0.5 mg IVPUSH Q2H PRN PRN Reason: Pain (severe 7-10) Promethazine HCl 12.5 mg/ (Sodium Chloride) 50.5 mls @ 100 mls/hr IV Q6H PRN PRN Reason: Nausea/Vomiting Dextrose/Sodium Chloride (Dextrose 5%-Normal Saline) 1,000 mls @ 125 mls/hr IV ASDIRECTED [facility] Thiamine HCl 200 mg/ Sodium (Chloride) 52 mls @ 100 mls/hr IV DAILY ONE Stop: 07/28/17 18:21 Ibuprofen (Motrin) 600 mg PO Q6H PRN PRN Reason: Pain (moderate 4-6) Lorazepam (Ativan) 2 mg IVPUSH Q4H PRN PRN Reason: Seizures Magnesium Sulfate (Pharmacy To Dose - Magnesium Replacement) 1 dose .XX ASDIRECTED [facility] Metoprolol Tartrate (Lopressor) 5 mg IVPUSH Q4H PRN PRN Reason: Tachycardia Multivitamins (Thera) 1 each PO DAILY [facility] Ondansetron HCl (Zofran) 4 mg IV Q6H PRN PRN Reason: Nausea/Vomiting Oxycodone HCl (Oxycodone) 5 mg PO Q4H PRN PRN Reason: Pain (moderate 4-6) Pantoprazole Sodium (Protonix Iv) 40 mg IV Q12HR [facility] Polyethylene Glycol (Miralax) 17 gm PO DAILY PRN PRN Reason: Constipation Potassium Chloride (Pharmacy To Dose - Potassium Replacement) 1 dose .XX ASDIRECTED [facility] Potassium Chloride (Klor-Con M20) 40 meq PO Q4H [facility] Stop: 07/28/17 21:01 Senna/Docusate Sodium (Senna Plus) 1 tab PO BID PRN PRN Reason: Constipation Sodium Chloride (Saline Flush) 10 ml FLUSH ASDIRECTED PRN PRN Reason: Keep Vein Open Last Admin: 07/28/17 12:55 Dose: 10 ml Temazepam (Restoril) 15 mg PO BEDTIME PRN PRN Reason: Insomnia Thiamine HCl (Vitamin B-1) 100 mg PO DAILY [facility] Assessment/Plan Comment:: I/P: Acute: Severe Acute pancreatitis -Risk factors: EtOH abuse, Hypertryglyceridemia, Cocaine use -Likely 2/2 EtOH abuse, cannot rule out gallstones -Clinically looks stable -Ofelia's Criteria: 0 -WBC 11.22 -CRP 1.4 -Lactic Acid 2.6 -Anion Gap 18.5 -Lipase 5814 -Abdominal CT (07/28/17): 1. Findings compatible with fairly severe pancreatitis. Fluid noted within the paracolic gutters extending into the pelvis. 2. Fatty infiltration within the liver. 3. Small hiatal hernia with gastroesophageal reflux of contrast. -Supportive care: IV fluids, Pain control, N/V control -NPO until lipase <1000, start D5W once 3L NS given -Gallbladder U/S ordered -Serial CT if indicated EtOH abuse, chronic -CIWA protocol -MCV 100 -AST 53 -Correct vitamin deficiencies --> Multivitamin, Thiamine, Folic Acid -Consult for substance abuse Drug abuse, chronic -Positive Toxicology screen for Opiates, Cocaine, Benzodiazepines -States hasn't taken in about a month -Currently no symptoms of intoxication -Consult for substance abuse HTN, acute -160/110 -Likely 2/2 pain with Acute Pancreatitis -Metropolol -Monitor Chronic: EtOH abuse Drug abuse Hiatal hernia with gastritis--> Protonix Hypertryglyceridemia--> 301 Plan: Admit to ICU--> CT shows severe pancreatitis Other orders as indicated above Routine AM labs DVT Prophylaxis: SCD GI Prophylaxis: Protonix Full Code
[2017-07-28] MEDS: hydrALAZINE 20 MG/ML SDV IVPUSH PRN (19:02)
[2017-07-28] MEDS: Pantoprazole 40 MG Vial IV SCH (20:00)
[2017-07-28] MEDS: Sodium Chloride 0.9% 1,000 ML IV SCH ×3 (20:13→22:28)
[2017-07-28] MEDS ORDERED: Scopolamine 1.5 MG Transdermal Patch TRDERM PRN (21:48)
[2017-07-28] MEDS ORDERED: diphenhydrAMINE 50 MG/ML SDV IVPUSH ONE (21:51)
[2017-07-28] MEDS: Temazepam 15 MG Cap PO PRN ×2 (22:17→22:41)
[2017-07-28] MEDS: Dextrose 5%-0.9% NaCl 1,000 ML IV SCH (23:31)
[2017-07-29] MEDS: HYDROmorphone 0.5 MG/0.5 ML SYRINGE IVPUSH PRN ×5 (02:35→21:06)
[2017-07-29] MEDS: Ibuprofen 600 MG Tab PO PRN ×2 (05:16→19:58)
[2017-07-29] MEDS: hydrALAZINE 20 MG/ML SDV IVPUSH PRN (05:16)
[2017-07-29] MEDS: Dextrose 5%-0.9% NaCl 1,000 ML IV SCH ×4 (07:44→22:33)
[2017-07-29] MEDS: Magnesium Sulfate/Water 2 GM in Premix Bag 1 BAG IV SCH ×2 (08:11→10:23)
--- NOTE | 2017-07-29 08:23 | PCM.PN ---
- General Info Date of Service: 07/29/17 Admission Dx/Problem (Free Text): Admission Diagnosis/Problem Admission Diagnosis/Problem Pancreatitis Subjective Update: In to see Kaden. He is lying in bed. He reports 7/10 abdominal pain but states it is controlled with dilaudid. He has no other complaints. He has been urinating. He is NPO. Discussed plan of care. Discussed importance of lifestyle changes and how alcohol likely contributed to his symptoms. Nursing reports patient did admit to everything that was positive on his drug screen prior to admission. We attempted to have confirmation achieved however lab reports not enough urine was obtained. He have since given the patient opiates and ativan which would skew a repeat UDS. Nursing has no concerns. His lipase did go down slightly. Will remain NPO and increase fluids for now. Functional Status: Reports: Pain Controlled, Tolerating Diet, Ambulating, Urinating. Denies: New Symptoms - Review of Systems General: Reports: No Symptoms. Denies: Fever, Weakness, Fatigue, Malaise HEENT: Reports: No Symptoms. Denies: Eye Pain, Sore Throat, Rhinitis Pulmonary: Reports: No Symptoms. Denies: Shortness of Breath, Cough, Sputum, Wheezing Cardiovascular: Reports: No Symptoms. Denies: Chest Pain, Palpitations, Dyspnea on Exertion, Edema, Lightheadedness Gastrointestinal: Reports: Abdominal Pain (mild ). Denies: Constipation, Diarrhea, Nausea, Vomiting Genitourinary: Reports: No Symptoms. Denies: Dysuria, Frequency, Burning, Pain Musculoskeletal: Reports: No Symptoms Skin: Reports: No Symptoms Neurological: Reports: No Symptoms Psychiatric: Reports: No Symptoms - Patient Data Vitals - Most Recent: Last Vital Signs Temp 100.7 F H 07/29/17 06:35 Pulse 109 H 07/29/17 06:17 Resp 19 07/29/17 06:17 BP 138/93 H 07/29/17 06:17 Pulse Ox 96 07/29/17 06:17 Weight - Most Recent: 197 lb 1.6 oz I&O - Last 24 Hours: Intake & Output 07/28/17 07/29/17 07/29/17 22:59 06:59 14:59 Intake Total 4600 Output Total 750 Balance 3850 Lab Results Last 24 Hours: Laboratory Results - last 24 hr 04/10/18 04/10/18 04/10/18 Range/Units 12:35 12:35 12:55 WBC 11.22 H (4.23-9.07) K/mm3 RBC 4.49 L (4.63-6.08) M/mm3 Hgb 16.0 (13.7-17.5) gm/L Hct 44.9 (40.1-51.0) % MCV 100.0 H (79.0-92.2) fl MCH 35.6 H (25.7-32.2) pg MCHC 35.6 H (32.2-35.5) g/dl RDW Std Deviation 51.1 H (35.1-43.9) fL Plt Count 288 (163-337) K/mm3 MPV 9.7 (9.4-12.3) fl Neut % (Auto) (34.0-67.9) % Lymph % (Auto) (21.8-53.1) % [place] % (Auto) (5.3-12.2) % Eos % (Auto) (0.8-7.0) Baso % (Auto) (0.1-1.2) % Neut # (Auto) (1.78-5.38) K/mm3 Lymph # (Auto) (1.32-3.57) K/mm3 [place] # (Auto) (0.30-0.82) K/mm3 Eos # (Auto) (0.04-0.54) K/mm3 Baso # (Auto) (0.01-0.08) K/mm3 Neutrophils % (Manual) 76 H (40-60) % Band Neutrophils % 9 (0-10) % Lymphocytes % (Manual) 10 L (20-40) % Atypical Lymphs % 0 % Monocytes % (Manual) 5 (2-10) % Eosinophils % (Manual) 0 L (0.8-7.0) % Basophils % (Manual) 0 L (0.2-1.2) Platelet Estimate Adequate RBC Morph Comment Normal Sodium (136-145) mEq/L Potassium (3.5-5.1) mEq/L Chloride (98-107) mEq/L Carbon Dioxide (21-32) mEq/L Anion Gap (5-15) BUN (7-18) mg/dL Creatinine (0.7-1.3) mg/dL Est Cr Clr Drug Dosing mL/min Estimated GFR (MDRD) (>60) mL/min BUN/Creatinine Ratio (14-18) Glucose (74-106) mg/dL Hemoglobin A1c (4.50-6.20) % Lactic Acid (0.4-2.0) mmol/L Calcium (8.5-10.1) mg/dL Magnesium (1.8-2.4) mg/dl Total Bilirubin (0.2-1.0) mg/dL AST (15-37) U/L ALT (16-63) U/L Alkaline Phosphatase (46-116) U/L Lactate Dehydrogenase (85-227) U/L C-Reactive Protein (<1.0) mg/dL Total Protein (6.4-8.2) g/dl Albumin (3.4-5.0) g/dl Globulin gm/dL Albumin/Globulin Ratio (1-2) Triglycerides (<150) mg/dL Cholesterol (<200) mg/dL LDL Cholesterol Direct (<100) mg/dL HDL Cholesterol (40-59) mg/dL Lipase (73-393) U/L Urine Color Yellow (Yellow) Urine Appearance Clear (Clear) Urine pH 6.0 (5.0-8.0) Ur Specific [place] > or = 1.030 (1.005-1.030) Urine Protein 1+ H (Negative) Urine Glucose (UA) Negative (Negative) Urine Ketones Negative (Negative) Urine Occult Blood Negative (Negative) Urine Nitrite Negative (Negative) Urine Bilirubin Negative (Negative) Urine Urobilinogen 0.2 (0.2-1.0) Ur Leukocyte Esterase Negative (Negative) Urine RBC 0-5 (0-5) /hpf Urine WBC 0-5 (0-5) /hpf Ur Epithelial Cells Not seen (0-5) /hpf Urine Bacteria Few (FEW) /hpf Urine Mucus Few (FEW) /hpf Urine Opiates Screen Presumptive positive H (NEGATIVE) Ur Buprenorphine Scrn Negative (NEGATIVE) Ur Oxycodone Screen Negative (NEGATIVE) Urine Methadone Screen Negative (NEGATIVE) Ur Propoxyphene Screen Negative (NEGATIVE) Acetaminophen (10-30) ug/mL Ur Barbiturates Screen Negative (NEGATIVE) Ur Tricyclics Screen Negative (NEGATIVE) Ur Phencyclidine Scrn Negative (NEGATIVE) Ur Amphetamine Screen Negative (NEGATIVE) U Methamphetamines Scrn Negative (NEGATIVE) U Benzodiazepines Scrn Presumptive positive H (NEGATIVE) U Cocaine Metab Screen Presumptive positive H (NEGATIVE) U Marijuana (THC) Screen Negative (NEGATIVE) Ethyl Alcohol (0.00) gm% 07/28/17 07/28/17 07/28/17 Range/Units 12:55 12:55 12:55 WBC (4.23-9.07) K/mm3 RBC (4.63-6.08) M/mm3 Hgb (13.7-17.5) gm/L Hct (40.1-51.0) % MCV (79.0-92.2) fl MCH (25.7-32.2) pg MCHC (32.2-35.5) g/dl RDW Std Deviation (35.1-43.9) fL Plt Count (163-337) K/mm3 MPV (9.4-12.3) fl Neut % (Auto) (34.0-67.9) % Lymph % (Auto) (21.8-53.1) % [place] % (Auto) (5.3-12.2) % Eos % (Auto) (0.8-7.0) Baso % (Auto) (0.1-1.2) % Neut # (Auto) (1.78-5.38) K/mm3 Lymph # (Auto) (1.32-3.57) K/mm3 [place] # (Auto) (0.30-0.82) K/mm3 Eos # (Auto) (0.04-0.54) K/mm3 Baso # (Auto) (0.01-0.08) K/mm3 Neutrophils % (Manual) (40-60) % Band Neutrophils % (0-10) % Lymphocytes % (Manual) (20-40) % Atypical Lymphs % % Monocytes % (Manual) (2-10) % Eosinophils % (Manual) (0.8-7.0) % Basophils % (Manual) (0.2-1.2) Platelet Estimate RBC Morph Comment Sodium 142 (136-145) mEq/L Potassium 3.5 (3.5-5.1) mEq/L Chloride 100 (98-107) mEq/L Carbon Dioxide 27 (21-32) mEq/L Anion Gap 18.5 H (5-15) BUN 5 L (7-18) mg/dL Creatinine 1.0 (0.7-1.3) mg/dL Est Cr Clr Drug Dosing 131.29 mL/min Estimated GFR (MDRD) > 60 (>60) mL/min BUN/Creatinine Ratio 5.0 L (14-18) Glucose 160 H (74-106) mg/dL Hemoglobin A1c 5.00 (4.50-6.20) % Lactic Acid (0.4-2.0) mmol/L Calcium 8.9 (8.5-10.1) mg/dL Magnesium (1.8-2.4) mg/dl Total Bilirubin 0.5 (0.2-1.0) mg/dL AST 53 H (15-37) U/L ALT 52 (16-63) U/L Alkaline Phosphatase 70 (46-116) U/L Lactate Dehydrogenase (85-227) U/L C-Reactive Protein < 0.2 (<1.0) mg/dL Total Protein 7.4 (6.4-8.2) g/dl Albumin 4.4 (3.4-5.0) g/dl Globulin 3.0 gm/dL Albumin/Globulin Ratio 1.5 (1-2) Triglycerides (<150) mg/dL Cholesterol (<200) mg/dL LDL Cholesterol Direct (<100) mg/dL HDL Cholesterol (40-59) mg/dL Lipase 5814 H (73-393) U/L Urine Color (Yellow) Urine Appearance (Clear) Urine pH (5.0-8.0) Ur Specific [place] (1.005-1.030) Urine Protein (Negative) Urine Glucose (UA) (Negative) Urine Ketones (Negative) Urine Occult Blood (Negative) Urine Nitrite (Negative) Urine Bilirubin (Negative) Urine Urobilinogen (0.2-1.0) Ur Leukocyte Esterase (Negative) Urine RBC (0-5) /hpf Urine WBC (0-5) /hpf Ur Epithelial Cells (0-5) /hpf Urine Bacteria (FEW) /hpf Urine Mucus (FEW) /hpf Urine Opiates Screen (NEGATIVE) Ur Buprenorphine Scrn (NEGATIVE) Ur Oxycodone Screen (NEGATIVE) Urine Methadone Screen (NEGATIVE) Ur Propoxyphene Screen (NEGATIVE) Acetaminophen (10-30) ug/mL Ur Barbiturates Screen (NEGATIVE) Ur Tricyclics Screen (NEGATIVE) Ur Phencyclidine Scrn (NEGATIVE) Ur Amphetamine Screen (NEGATIVE) U Methamphetamines Scrn (NEGATIVE) U Benzodiazepines Scrn (NEGATIVE) U Cocaine Metab Screen (NEGATIVE) U Marijuana (THC) Screen (NEGATIVE) Ethyl Alcohol 0.00 (0.00) gm% 07/28/17 07/28/17 07/28/17 Range/Units 13:55 13:55 17:40 WBC (4.23-9.07) K/mm3 RBC (4.63-6.08) M/mm3 Hgb (13.7-17.5) gm/L Hct (40.1-51.0) % MCV (79.0-92.2) fl MCH (25.7-32.2) pg MCHC (32.2-35.5) g/dl RDW Std Deviation (35.1-43.9) fL Plt Count (163-337) K/mm3 MPV (9.4-12.3) fl Neut % (Auto) (34.0-67.9) % Lymph % (Auto) (21.8-53.1) % [place] % (Auto) (5.3-12.2) % Eos % (Auto) (0.8-7.0) Baso % (Auto) (0.1-1.2) % Neut # (Auto) (1.78-5.38) K/mm3 Lymph # (Auto) (1.32-3.57) K/mm3 [place] # (Auto) (0.30-0.82) K/mm3 Eos # (Auto) (0.04-0.54) K/mm3 Baso # (Auto) (0.01-0.08) K/mm3 Neutrophils % (Manual) (40-60) % Band Neutrophils % (0-10) % Lymphocytes % (Manual) (20-40) % Atypical Lymphs % % Monocytes % (Manual) (2-10) % Eosinophils % (Manual) (0.8-7.0) % Basophils % (Manual) (0.2-1.2) Platelet Estimate RBC Morph Comment Sodium (136-145) mEq/L Potassium (3.5-5.1) mEq/L Chloride (98-107) mEq/L Carbon Dioxide (21-32) mEq/L Anion Gap (5-15) BUN (7-18) mg/dL Creatinine (0.7-1.3) mg/dL Est Cr Clr Drug Dosing mL/min Estimated GFR (MDRD) (>60) mL/min BUN/Creatinine Ratio (14-18) Glucose (74-106) mg/dL Hemoglobin A1c (4.50-6.20) % Lactic Acid 2.6 H (0.4-2.0) mmol/L Calcium (8.5-10.1) mg/dL Magnesium (1.8-2.4) mg/dl Total Bilirubin (0.2-1.0) mg/dL AST (15-37) U/L ALT (16-63) U/L Alkaline Phosphatase (46-116) U/L Lactate Dehydrogenase 431 H (85-227) U/L C-Reactive Protein (<1.0) mg/dL Total Protein (6.4-8.2) g/dl Albumin (3.4-5.0) g/dl Globulin gm/dL Albumin/Globulin Ratio (1-2) Triglycerides 301 H (<150) mg/dL Cholesterol 167 (<200) mg/dL LDL Cholesterol Direct 71 (<100) mg/dL HDL Cholesterol 61.0 H (40-59) mg/dL Lipase (73-393) U/L Urine Color (Yellow) Urine Appearance (Clear) Urine pH (5.0-8.0) Ur Specific [place] (1.005-1.030) Urine Protein (Negative) Urine Glucose (UA) (Negative) Urine Ketones (Negative) Urine Occult Blood (Negative) Urine Nitrite (Negative) Urine Bilirubin (Negative) Urine Urobilinogen (0.2-1.0) Ur Leukocyte Esterase (Negative) Urine RBC (0-5) /hpf Urine WBC (0-5) /hpf Ur Epithelial Cells (0-5) /hpf Urine Bacteria (FEW) /hpf Urine Mucus (FEW) /hpf Urine Opiates Screen (NEGATIVE) Ur Buprenorphine Scrn (NEGATIVE) Ur Oxycodone Screen (NEGATIVE) Urine Methadone Screen (NEGATIVE) Ur Propoxyphene Screen (NEGATIVE) Acetaminophen (10-30) ug/mL Ur Barbiturates Screen (NEGATIVE) Ur Tricyclics Screen (NEGATIVE) Ur Phencyclidine Scrn (NEGATIVE) Ur Amphetamine Screen (NEGATIVE) U Methamphetamines Scrn (NEGATIVE) U Benzodiazepines Scrn (NEGATIVE) U Cocaine Metab Screen (NEGATIVE) U Marijuana (THC) Screen (NEGATIVE) Ethyl Alcohol (0.00) gm% 07/28/17 07/29/17 07/29/17 Range/Units 17:40 05:25 05:25 WBC 7.68 (4.23-9.07) K/mm3 RBC 4.13 L (4.63-6.08) M/mm3 Hgb 14.5 (13.7-17.5) gm/L Hct 42.5 (40.1-51.0) % MCV 102.9 H (79.0-92.2) fl MCH 35.1 H (25.7-32.2) pg MCHC 34.1 (32.2-35.5) g/dl RDW Std Deviation 53.6 H (35.1-43.9) fL Plt Count 240 (163-337) K/mm3 MPV 10.0 (9.4-12.3) fl Neut % (Auto) 76.8 H (34.0-67.9) % Lymph % (Auto) 10.9 L (21.8-53.1) % [place] % (Auto) 11.2 (5.3-12.2) % Eos % (Auto) 1.0 (0.8-7.0) Baso % (Auto) 0.0 L (0.1-1.2) % Neut # (Auto) 5.89 H (1.78-5.38) K/mm3 Lymph # (Auto) 0.84 L (1.32-3.57) K/mm3 [place] # (Auto) 0.86 H (0.30-0.82) K/mm3 Eos # (Auto) 0.08 (0.04-0.54) K/mm3 Baso # (Auto) 0.00 L (0.01-0.08) K/mm3 Neutrophils % (Manual) (40-60) % Band Neutrophils % (0-10) % Lymphocytes % (Manual) (20-40) % Atypical Lymphs % % Monocytes % (Manual) (2-10) % Eosinophils % (Manual) (0.8-7.0) % Basophils % (Manual) (0.2-1.2) Platelet Estimate RBC Morph Comment Sodium 141 (136-145) mEq/L Potassium 3.8 (3.5-5.1) mEq/L Chloride 105 (98-107) mEq/L Carbon Dioxide 26 (21-32) mEq/L Anion Gap 13.8 (5-15) BUN 5 L (7-18) mg/dL Creatinine 0.9 (0.7-1.3) mg/dL Est Cr Clr Drug Dosing 145.88 mL/min Estimated GFR (MDRD) > 60 (>60) mL/min BUN/Creatinine Ratio 5.6 L (14-18) Glucose 144 H (74-106) mg/dL Hemoglobin A1c (4.50-6.20) % Lactic Acid (0.4-2.0) mmol/L Calcium 7.2 L (8.5-10.1) mg/dL Magnesium 1.2 L (1.8-2.4) mg/dl Total Bilirubin (0.2-1.0) mg/dL AST (15-37) U/L ALT (16-63) U/L Alkaline Phosphatase (46-116) U/L Lactate Dehydrogenase (85-227) U/L C-Reactive Protein 1.4 H* 10.9 H* (<1.0) mg/dL Total Protein (6.4-8.2) g/dl Albumin (3.4-5.0) g/dl Globulin gm/dL Albumin/Globulin Ratio (1-2) Triglycerides (<150) mg/dL Cholesterol (<200) mg/dL LDL Cholesterol Direct (<100) mg/dL HDL Cholesterol (40-59) mg/dL Lipase 4795 H (73-393) U/L Urine Color (Yellow) Urine Appearance (Clear) Urine pH (5.0-8.0) Ur Specific [place] (1.005-1.030) Urine Protein (Negative) Urine Glucose (UA) (Negative) Urine Ketones (Negative) Urine Occult Blood (Negative) Urine Nitrite (Negative) Urine Bilirubin (Negative) Urine Urobilinogen (0.2-1.0) Ur Leukocyte Esterase (Negative) Urine RBC (0-5) /hpf Urine WBC (0-5) /hpf Ur Epithelial Cells (0-5) /hpf Urine Bacteria (FEW) /hpf Urine Mucus (FEW) /hpf Urine Opiates Screen (NEGATIVE) Ur Buprenorphine Scrn (NEGATIVE) Ur Oxycodone Screen (NEGATIVE) Urine Methadone Screen (NEGATIVE) Ur Propoxyphene Screen (NEGATIVE) Acetaminophen 0 L (10-30) ug/mL Ur Barbiturates Screen (NEGATIVE) Ur Tricyclics Screen (NEGATIVE) Ur Phencyclidine Scrn (NEGATIVE) Ur Amphetamine Screen (NEGATIVE) U Methamphetamines Scrn (NEGATIVE) U Benzodiazepines Scrn (NEGATIVE) U Cocaine Metab Screen (NEGATIVE) U Marijuana (THC) Screen (NEGATIVE) Ethyl Alcohol (0.00) gm% Med Orders - Current: Current Medications Albuterol/Ipratropium (Duoneb 3.0-0.5 Mg/3 Ml) 3 ml NEB Q4H PRN PRN Reason: Shortness Of Breath/wheezing Bisacodyl (Dulcolax) 5 mg PO DAILY PRN PRN Reason: Constipation Chlordiazepoxide HCl (Librium) 25 mg PO Q8H PRN PRN Reason: Withdrawal Symptoms Clonidine HCl (Catapres) 0.1 mg PO Q4H PRN PRN Reason: Agitation Diphtheria/Tetanus/Acell Pertussis (Adacel) 0.5 ml IM .ONCE ONE Stop: 07/29/17 08:31 Docusate Sodium (Colace) 100 mg PO BID PRN PRN Reason: Constipation Folic Acid (Folic Acid) 1 mg PO DAILY [facility] Stop: 07/31/17 09:01 Hydralazine HCl (Apresoline) 20 mg IVPUSH Q4H PRN PRN Reason: Hypertension Last Admin: 07/29/17 05:16 Dose: 20 mg Hydromorphone HCl (Dilaudid) 1 mg IVPUSH Q4H PRN PRN Reason: Pain Last Admin: 07/29/17 08:03 Dose: 1 mg Promethazine HCl 12.5 mg/ (Sodium Chloride) 50.5 mls @ 100 mls/hr IV Q6H PRN PRN Reason: Nausea/Vomiting Last Admin: 07/28/17 22:02 Dose: 100 mls/hr Dextrose/Sodium Chloride (Dextrose 5%-Normal Saline) 1,000 mls @ 125 mls/hr IV ASDIRECTED [facility] Last Admin: 07/29/17 07:44 Dose: 125 mls/hr Magnesium Sulfate 2 gm/ Premix 50 mls @ 25 mls/hr IV Q2H ORSIE Stop: 07/29/17 11:14 Last Admin: 07/29/17 08:11 Dose: 25 mls/hr Sodium Chloride (Normal Saline) 1,000 mls @ 100 mls/hr IV ASDIRECTED ROSIE Stop: 07/29/17 18:29 Ibuprofen (Motrin) 600 mg PO Q6H PRN PRN Reason: Pain (moderate 4-6) Last Admin: 07/29/17 05:16 Dose: 600 mg Lorazepam (Ativan) 2 mg IVPUSH Q4H PRN PRN Reason: Seizures Magnesium Sulfate (Pharmacy To Dose - Magnesium Replacement) 0 dose .XX ASDIRECTED PRN PRN Reason: RX TO WATCH MAG LEVELS Metoprolol Tartrate (Lopressor) 5 mg IVPUSH Q4H PRN PRN Reason: Tachycardia Miscellaneous Information (Remove Patch) 1 ea TRDERM Q72H PRN PRN Reason: patch removal Multivitamins (Thera) 1 each PO DAILY [facility] Ondansetron HCl (Zofran) 4 mg IV Q6H PRN PRN Reason: Nausea/Vomiting Last Admin: 07/28/17 19:59 Dose: 4 mg Oxycodone HCl (Oxycodone) 5 mg PO Q4H PRN PRN Reason: Pain (moderate 4-6) Pantoprazole Sodium (Protonix Iv) 40 mg IV Q12HR ROSIE Last Admin: 07/28/17 20:00 Dose: 40 mg Polyethylene Glycol (Miralax) 17 gm PO DAILY PRN PRN Reason: Constipation Potassium Chloride (Pharmacy To Dose - Potassium Replacement) 0 dose .XX ASDIRECTED PRN PRN Reason: RX TO WATCH K LEVELS Scopolamine (Transderm-Scop) 1.5 mg TRDERM Q72H PRN PRN Reason: Nausea Last Admin: 07/28/17 22:17 Dose: 1.5 mg Senna/Docusate Sodium (Senna Plus) 1 tab PO BID PRN PRN Reason: Constipation Sodium Chloride (Saline Flush) 10 ml FLUSH ASDIRECTED PRN PRN Reason: Keep Vein Open Last Admin: 07/28/17 12:55 Dose: 10 ml Temazepam (Restoril) 15 mg PO BEDTIME PRN PRN Reason: Insomnia Last Admin: 07/28/17 22:41 Dose: 15 mg Thiamine HCl (Vitamin B-1) 100 mg PO DAILY [facility] Discontinued Medications Diatrizoate Meglum/Diatrizoate Sod (Gastrografin 37%) 90 ml PO ONETIME ONE Stop: 07/28/17 14:37 Last Admin: 07/28/17 15:48 Dose: 90 ml Dicyclomine HCl (Bentyl) 20 mg PO ONETIME ONE Stop: 07/28/17 14:15 Last Admin: 07/28/17 14:28 Dose: 20 mg Diphenhydramine HCl (Benadryl) 25 mg IVPUSH ONETIME ONE Stop: 07/28/17 21:52 Last Admin: 07/28/17 22:06 Dose: 25 mg Hydromorphone HCl (Dilaudid) 0.5 mg IVPUSH ONETIME ONE Stop: 07/28/17 12:44 Last Admin: 07/28/17 12:56 Dose: 0.5 mg Hydromorphone HCl (Dilaudid) 0.5 mg IVPUSH ONETIME ONE Stop: 07/28/17 14:54 Last Admin: 07/28/17 15:03 Dose: 0.5 mg Hydromorphone HCl (Dilaudid) 0.5 mg IVPUSH Q2H PRN PRN Reason: Pain (severe 7-10) Last Admin: 07/28/17 19:59 Dose: 0.5 mg Hydromorphone HCl (Dilaudid) 1 mg IVPUSH Q4HR ONE Stop: 07/28/17 21:53 Last Admin: 07/28/17 22:16 Dose: 1 mg Sodium Chloride (Normal Saline) 1,000 mls @ 250 mls/hr IV ONETIME ONE Stop: 07/28/17 16:42 Last Admin: 07/28/17 12:56 Dose: 250 mls/hr Thiamine HCl 200 mg/ Sodium (Chloride) 52 mls @ 100 mls/hr IV ONETIME ONE Stop: 07/28/17 18:21 Last Admin: 07/28/17 20:07 Dose: Not Given Thiamine HCl 200 mg/ Sodium (Chloride) 52 mls @ 100 mls/hr IV ONETIME ONE Stop: 07/28/17 21:31 Last Admin: 07/28/17 21:22 Dose: 100 mls/hr Sodium Chloride (Normal Saline) 1,000 mls @ 999 mls/hr IV ASDIRECTED ROSIE Stop: 07/30/17 21:01 Last Admin: 07/28/17 22:28 Dose: 999 mls/hr Iopamidol (Isovue-300 (61%)) 125 ml IVPUSH ONETIME ONE Stop: 07/28/17 14:37 Last Admin: 07/28/17 15:48 Dose: 125 ml Ondansetron HCl (Zofran) 4 mg IVPUSH ONETIME ONE Stop: 07/28/17 12:44 Last Admin: 07/28/17 12:55 Dose: 4 mg Pantoprazole Sodium (Protonix Iv) 40 mg IVPUSH ONETIME ONE Stop: 07/28/17 12:44 Last Admin: 07/28/17 12:55 Dose: 40 mg Potassium Chloride (Klor-Con M20) 40 meq PO Q4H ROSIE Stop: 07/28/17 21:01 Last Admin: 07/28/17 22:41 Dose: 40 meq Sodium Chloride (Saline Flush) 10 ml FLUSH ONETIME ONE Stop: 07/28/17 14:37 Last Admin: 07/28/17 15:48 Dose: 10 ml - Exam Quality Assessment: DVT Prophylaxis General: Alert, Oriented, Cooperative, No Acute Distress HEENT: Pupils Equal, Pupils Reactive, EOMI, Mucous Membr. Moist/[place] Neck: Supple, Trachea Midline Lungs: Clear to Auscultation, Normal Respiratory Effort Cardiovascular: Regular Rate, Regular Rhythm GI/Abdominal Exam: Normal Bowel Sounds, Soft, No Organomegaly, No Distention, No Abnormal Bruit, No Mass, Pelvis Stable, Tender (MIld tenderness on plapatation in upper quadrants) (Male) Exam: Deferred Back Exam: Normal Inspection, Full Range of Motion Extremities: Normal Inspection, Normal Range of Motion, Non-Tender, No Pedal Edema, Normal Capillary Refill Peripheral Pulses: 3+: Radial (L), Radial (R), Posterior Tibial (L), Posterior Tibial (R), Dorsalis Pedis (L), Dorsalis Pedis (R) Skin: Warm, Dry, Intact Neurological: No New Focal Deficit Psy/Mental Status: Alert, Normal Affect, Normal Mood - Problem List & Annotations (1) Alcoholism /alcohol abuse SNOMED Code(s): 3806515 Code(s): F10.20 - ALCOHOL DEPENDENCE, UNCOMPLICATED Status: Acute Priority: High Current Visit: Yes (2) Drug dependence SNOMED Code(s): 773063697 Code(s): F19.20 - OTHER PSYCHOACTIVE SUBSTANCE DEPENDENCE, UNCOMPLICATED Status: Acute Priority: High Current Visit: Yes (3) Pancreatitis SNOMED Code(s): 78344435 Code(s): K85.90 - ACUTE PANCREATITIS WITHOUT NECROSIS OR INFECTION, UNSP Status: Acute Priority: High Current Visit: Yes Qualifiers: Chronicity: acute Pancreatitis type: alcohol induced Acute pancreatitis complication: uninfected necrosis Qualified Code(s): K85.21 - Alcohol induced acute pancreatitis with uninfected necrosis (4) Hiatal hernia with gastroesophageal reflux SNOMED Code(s): 420640754 Code(s): K21.9 - GASTRO-ESOPHAGEAL REFLUX DISEASE WITHOUT ESOPHAGITIS; K44.9 - DIAPHRAGMATIC HERNIA WITHOUT OBSTRUCTION OR GANGRENE Status: Acute Priority: Low Current Visit: Yes (5) Hypertriglyceridemia SNOMED Code(s): 780863007 Code(s): E78.1 - PURE HYPERGLYCERIDEMIA Status: Acute Priority: Medium Current Visit: Yes - Problem List Review Problem List Initiated/Reviewed/Updated: Yes - My Orders Last 24 Hours: My Active Orders 07/29/17 08:30 Sodium Chloride 0.9% @ 100 MLS/HR(1000ml Bag) Sodium Chloride 0.9% [Normal Saline] 1,000 ml IV ASDIRECTED - Plan Plan:: I/P: Acute: Severe Acute pancreatitis, improving -Risk factors: EtOH abuse, Hypertryglyceridemia, Cocaine use -Likely 2/2 EtOH abuse, cannot rule out gallstones although CT negative and liver enzymes good -Clinically looks stable -Oxford's Criteria: 1 on admission -WBC 11.22-->7.68 -CRP 1.4-->10.7 -Lactic Acid 2.6-->1.2 -Anion Gap 18.5-->13.8 -Lipase 5814-->4795 -Abdominal CT (07/28/17): 1. Findings compatible with fairly severe pancreatitis. Fluid noted within the paracolic gutters extending into the pelvis. 2. Fatty infiltration within the liver. 3. Small hiatal hernia with gastroesophageal reflux of contrast. -Supportive care: IV fluids, Pain control, N/V control -NPO until lipase <1000, start D5W once 3L NS given -Gallbladder U/S ordered -Serial CT if indicated EtOH abuse, chronic -[facility] protocol -MCV 100-->102.9 -AST 53 -Correct vitamin deficiencies --> Multivitamin, Thiamine, Folic Acid -Consult for substance abuse Drug abuse, chronic -Positive Toxicology screen for Opiates, Cocaine, Benzodiazepines -States hasn't taken in about a month -Currently no symptoms of intoxication -Consult for substance abuse HTN, acute -160/110 on admission -Likely 2/2 pain with Acute Pancreatitis -Metropolol PRN -Monitor Hypomagenesmia -Mag 1.2 today -Pharmacy to supplement Chronic: EtOH abuse Drug abuse Hiatal hernia with gastritis--> Protonix Hypertryglyceridemia--> 301 Plan: Clinically he is improving and looks good Other orders as indicated above Routine AM labs DVT Prophylaxis: SCD GI Prophylaxis: Protonix Full Code; No PCP
[2017-07-29] MEDS ORDERED: Diphtheria,Pertussis(Acell),Tetanus Vaccine 0.5 ML SDV IM ONE (08:30)
[2017-07-29] MEDS ORDERED: Sodium Chloride 0.9% 1,000 ML IV SCH (08:30)
[2017-07-29] MEDS: Folic Acid 1 MG Tab PO SCH (08:37)
[2017-07-29] MEDS: Multivitamins,Therapeutic Tab PO SCH (08:37)
[2017-07-29] MEDS: Thiamine 100 MG Tab PO SCH (08:37)
[2017-07-29] MEDS: Pantoprazole 40 MG Vial IV SCH (08:38)
[2017-07-29] MEDS: Calcium Carbonate 600 MG Tab PO SCH ×2 (14:36→20:00)
--- NOTE | 2017-07-29 15:08 | US ---
Limited abdominal ultrasound: Multiple real-time images of the upper right abdomen were obtained. Comparison: Previous abdominal x-ray and abdominal and pelvic CT performed one day earlier. Liver is echogenic raising the possibility of fatty infiltration. No discrete focal abnormality is seen. Small amount of fluid seen within Morison's pouch. Gallbladder shows no gallstones. No gallbladder wall thickening or biliary duct dilatation is seen. No pericholecystic fluid is seen. No intrahepatic biliary duct dilatation is seen. Right kidney shows no hydronephrosis or mass. Pancreas is incompletely seen. Visualized portions of the pancreas are unremarkable. Impression: 1. Fatty infiltration within the liver. 2. Minimal free fluid within Morison's pouch. 3. No additional abnormality is seen on right upper quadrant abdominal ultrasound exam. Diagnostic code #3
[2017-07-29] MEDS ORDERED: Calcium Carbonate 600 MG Tab PO SCH (17:00)
[2017-07-29] MEDS: Pantoprazole 40 MG Tab.CR PO SCH (20:00)
[2017-07-29] MEDS: Temazepam 15 MG Cap PO PRN (21:11)
[2017-07-30] MEDS: hydrALAZINE 20 MG/ML SDV IVPUSH PRN ×3 (01:19→20:13)
[2017-07-30] MEDS: HYDROmorphone 0.5 MG/0.5 ML SYRINGE IVPUSH PRN ×4 (01:19→16:40)
[2017-07-30] MEDS: Acetaminophen Soln 650 MG/20.3 ML UD Cup PO PRN ×3 (01:28→20:14)
[2017-07-30] MEDS: Dextrose 5%-0.9% NaCl 1,000 ML IV SCH ×3 (02:30→11:41)
[2017-07-30] MEDS: Thiamine 100 MG Tab PO SCH (09:18)
[2017-07-30] MEDS: Multivitamins,Therapeutic Tab PO SCH (09:19)
[2017-07-30] MEDS: Folic Acid 1 MG Tab PO SCH (09:19)
[2017-07-30] MEDS: Pantoprazole 40 MG Tab.CR PO SCH ×2 (09:19→20:13)
--- NOTE | 2017-07-30 09:19 | PCM.PN ---
- General Info Date of Service: 07/30/17 Admission Dx/Problem (Free Text): Admission Diagnosis/Problem Admission Diagnosis/Problem Pancreatitis Subjective Update: In to see Alex. He is lying in bed. He still reports abdominal pain but states it has improved. Will try to encourage oral pain meds over IV pain meds. Functional Status: Reports: Pain Controlled, Tolerating Diet, Ambulating, Urinating. Denies: New Symptoms - Review of Systems General: Reports: No Symptoms. Denies: Fever, Weakness, Fatigue, Malaise HEENT: Reports: No Symptoms Pulmonary: Reports: No Symptoms. Denies: Shortness of Breath, Cough, Sputum Cardiovascular: Reports: No Symptoms. Denies: Chest Pain, Palpitations, Dyspnea on Exertion, Edema Gastrointestinal: Reports: Abdominal Pain (upper quadrant - improved over admission). Denies: Constipation, Diarrhea, Nausea, Vomiting Genitourinary: Reports: No Symptoms. Denies: Dysuria, Frequency, Burning, Pain Musculoskeletal: Reports: No Symptoms Skin: Reports: No Symptoms Neurological: Reports: No Symptoms Psychiatric: Reports: No Symptoms - Patient Data Vitals - Most Recent: Last Vital Signs Temp 99.1 F 07/30/17 08:48 Pulse 106 H 07/30/17 08:48 Resp 18 07/30/17 08:48 BP 151/95 H 07/30/17 08:48 Pulse Ox 93 L 07/30/17 08:48 Weight - Most Recent: 202 lb 14.4 oz I&O - Last 24 Hours: Intake & Output 07/29/17 07/30/17 07/30/17 22:59 06:59 14:59 Intake Total 1595 3000 Output Total 700 Balance 895 3000 Lab Results Last 24 Hours: Laboratory Results - last 24 hr 07/29/17 07/29/17 07/30/17 Range/Units 12:53 18:20 01:14 WBC (4.23-9.07) K/mm3 RBC (4.63-6.08) M/mm3 Hgb (13.7-17.5) gm/L Hct (40.1-51.0) % MCV (79.0-92.2) fl MCH (25.7-32.2) pg MCHC (32.2-35.5) g/dl RDW Std Deviation (35.1-43.9) fL Plt Count (163-337) K/mm3 MPV (9.4-12.3) fl Neut % (Auto) (34.0-67.9) % Lymph % (Auto) (21.8-53.1) % [place] % (Auto) (5.3-12.2) % Eos % (Auto) (0.8-7.0) Baso % (Auto) (0.1-1.2) % Neut # (Auto) (1.78-5.38) K/mm3 Lymph # (Auto) (1.32-3.57) K/mm3 [place] # (Auto) (0.30-0.82) K/mm3 Eos # (Auto) (0.04-0.54) K/mm3 Baso # (Auto) (0.01-0.08) K/mm3 Sodium (136-145) mEq/L Potassium (3.5-5.1) mEq/L Chloride (98-107) mEq/L Carbon Dioxide (21-32) mEq/L Anion Gap (5-15) BUN (7-18) mg/dL Creatinine (0.7-1.3) mg/dL Est Cr Clr Drug Dosing mL/min Estimated GFR (MDRD) (>60) mL/min BUN/Creatinine Ratio (14-18) Glucose (74-106) mg/dL POC Glucose 119 H 142 H 124 H (70-105) mg/dL Calcium (8.5-10.1) mg/dL Magnesium (1.8-2.4) mg/dl C-Reactive Protein (<1.0) mg/dL 07/30/17 07/30/17 07/30/17 Range/Units 06:00 06:00 06:12 WBC 8.79 (4.23-9.07) K/mm3 RBC 3.83 L (4.63-6.08) M/mm3 Hgb 13.7 (13.7-17.5) gm/L Hct 40.2 (40.1-51.0) % MCV 105.0 H (79.0-92.2) fl MCH 35.8 H (25.7-32.2) pg MCHC 34.1 (32.2-35.5) g/dl RDW Std Deviation 54.5 H (35.1-43.9) fL Plt Count 179 (163-337) K/mm3 MPV 10.1 (9.4-12.3) fl Neut % (Auto) 74.9 H (34.0-67.9) % Lymph % (Auto) 12.4 L (21.8-53.1) % [place] % (Auto) 10.2 (5.3-12.2) % Eos % (Auto) 2.2 (0.8-7.0) Baso % (Auto) 0.1 (0.1-1.2) % Neut # (Auto) 6.58 H (1.78-5.38) K/mm3 Lymph # (Auto) 1.09 L (1.32-3.57) K/mm3 [place] # (Auto) 0.90 H (0.30-0.82) K/mm3 Eos # (Auto) 0.19 (0.04-0.54) K/mm3 Baso # (Auto) 0.01 (0.01-0.08) K/mm3 Sodium 140 (136-145) mEq/L Potassium 3.6 (3.5-5.1) mEq/L Chloride 107 (98-107) mEq/L Carbon Dioxide 27 (21-32) mEq/L Anion Gap 9.6 (5-15) BUN 5 L (7-18) mg/dL Creatinine 0.8 (0.7-1.3) mg/dL Est Cr Clr Drug Dosing 164.11 mL/min Estimated GFR (MDRD) > 60 (>60) mL/min BUN/Creatinine Ratio 6.3 L (14-18) Glucose 113 H (74-106) mg/dL POC Glucose 116 H (70-105) mg/dL Calcium 7.7 L (8.5-10.1) mg/dL Magnesium 2.0 (1.8-2.4) mg/dl C-Reactive Protein 16.0 H* (<1.0) mg/dL Med Orders - Current: Current Medications Acetaminophen (Tylenol) 650 mg PO Q6H PRN PRN Reason: Pain/Fever Last Admin: 07/30/17 01:28 Dose: 650 mg Albuterol/Ipratropium (Duoneb 3.0-0.5 Mg/3 Ml) 3 ml NEB Q4H PRN PRN Reason: Shortness Of Breath/wheezing Bisacodyl (Dulcolax) 5 mg PO DAILY PRN PRN Reason: Constipation Calcium Carbonate/Glycine (Calcium Carbonate) 1,200 mg PO BID [facility] Last Admin: 07/29/17 20:00 Dose: 1,200 mg Chlordiazepoxide HCl (Librium) 25 mg PO Q8H PRN PRN Reason: Withdrawal Symptoms Clonidine HCl (Catapres) 0.1 mg PO Q4H PRN PRN Reason: Agitation Docusate Sodium (Colace) 100 mg PO BID PRN PRN Reason: Constipation Folic Acid (Folic Acid) 1 mg PO DAILY [facility] Stop: 07/31/17 09:01 Last Admin: 07/29/17 08:37 Dose: 1 mg Hydralazine HCl (Apresoline) 20 mg IVPUSH Q4H PRN PRN Reason: Hypertension Last Admin: 07/30/17 01:19 Dose: 20 mg Hydromorphone HCl (Dilaudid) 1 mg IVPUSH Q4H PRN PRN Reason: Pain Last Admin: 07/30/17 05:02 Dose: 1 mg Promethazine HCl 12.5 mg/ (Sodium Chloride) 50.5 mls @ 100 mls/hr IV Q6H PRN PRN Reason: Nausea/Vomiting Last Admin: 07/28/17 22:02 Dose: 100 mls/hr Dextrose/Sodium Chloride (Dextrose 5%-Normal Saline) 1,000 mls @ 250 mls/hr IV ASDIRECTED [facility] Last Admin: 07/30/17 07:20 Dose: 250 mls/hr Ibuprofen (Motrin) 600 mg PO Q6H PRN PRN Reason: Pain (moderate 4-6) Last Admin: 07/29/17 19:58 Dose: 600 mg Lorazepam (Ativan) 2 mg IVPUSH Q4H PRN PRN Reason: Seizures Magnesium Sulfate (Pharmacy To Dose - Magnesium Replacement) 0 dose .XX ASDIRECTED PRN PRN Reason: RX TO WATCH MAG LEVELS Metoprolol Tartrate (Lopressor) 5 mg IVPUSH Q4H PRN PRN Reason: Tachycardia Miscellaneous Information (Remove Patch) 1 ea TRDERM Q72H PRN PRN Reason: patch removal Multivitamins (Thera) 1 each PO DAILY [facility] Last Admin: 07/29/17 08:37 Dose: 1 each Ondansetron HCl (Zofran) 4 mg IV Q6H PRN PRN Reason: Nausea/Vomiting Last Admin: 07/28/17 19:59 Dose: 4 mg Oxycodone HCl (Oxycodone) 5 mg PO Q4H PRN PRN Reason: Pain (moderate 4-6) Pantoprazole Sodium (Protonix) 40 mg PO Q12HR [facility] Last Admin: 07/29/17 20:00 Dose: 40 mg Polyethylene Glycol (Miralax) 17 gm PO DAILY PRN PRN Reason: Constipation Potassium Chloride (Pharmacy To Dose - Potassium Replacement) 0 dose .XX ASDIRECTED PRN PRN Reason: RX TO WATCH K LEVELS Scopolamine (Transderm-Scop) 1.5 mg TRDERM Q72H PRN PRN Reason: Nausea Last Admin: 07/28/17 22:17 Dose: 1.5 mg Senna/Docusate Sodium (Senna Plus) 1 tab PO BID PRN PRN Reason: Constipation Sodium Chloride (Saline Flush) 10 ml FLUSH ASDIRECTED PRN PRN Reason: Keep Vein Open Last Admin: 07/28/17 12:55 Dose: 10 ml Temazepam (Restoril) 15 mg PO BEDTIME PRN PRN Reason: Insomnia Last Admin: 07/29/17 21:11 Dose: 15 mg Thiamine HCl (Vitamin B-1) 100 mg PO DAILY [facility] Last Admin: 07/29/17 08:37 Dose: 100 mg Discontinued Medications Calcium Carbonate/Glycine (Calcium Carbonate) 1,200 mg PO BIDMEALS [facility] Diatrizoate Meglum/Diatrizoate Sod (Gastrografin 37%) 90 ml PO ONETIME ONE Stop: 07/28/17 14:37 Last Admin: 07/28/17 15:48 Dose: 90 ml Dicyclomine HCl (Bentyl) 20 mg PO ONETIME ONE Stop: 07/28/17 14:15 Last Admin: 07/28/17 14:28 Dose: 20 mg Diphenhydramine HCl (Benadryl) 25 mg IVPUSH ONETIME ONE Stop: 07/28/17 21:52 Last Admin: 07/28/17 22:06 Dose: 25 mg Diphtheria/Tetanus/Acell Pertussis (Adacel) 0.5 ml IM .ONCE ONE Stop: 07/29/17 08:31 Hydromorphone HCl (Dilaudid) 0.5 mg IVPUSH ONETIME ONE Stop: 07/28/17 12:44 Last Admin: 07/28/17 12:56 Dose: 0.5 mg Hydromorphone HCl (Dilaudid) 0.5 mg IVPUSH ONETIME ONE Stop: 07/28/17 14:54 Last Admin: 07/28/17 15:03 Dose: 0.5 mg Hydromorphone HCl (Dilaudid) 0.5 mg IVPUSH Q2H PRN PRN Reason: Pain (severe 7-10) Last Admin: 07/28/17 19:59 Dose: 0.5 mg Hydromorphone HCl (Dilaudid) 1 mg IVPUSH Q4HR ONE Stop: 07/28/17 21:53 Last Admin: 07/28/17 22:16 Dose: 1 mg Sodium Chloride (Normal Saline) 1,000 mls @ 250 mls/hr IV ONETIME ONE Stop: 07/28/17 16:42 Last Admin: 07/28/17 12:56 Dose: 250 mls/hr Dextrose/Sodium Chloride (Dextrose 5%-Normal Saline) 1,000 mls @ 125 mls/hr IV ASDIRECTED [facility] Last Infusion: 07/29/17 13:01 Dose: 250 mls/hr Thiamine HCl 200 mg/ Sodium (Chloride) 52 mls @ 100 mls/hr IV ONETIME ONE Stop: 07/28/17 18:21 Last Admin: 07/28/17 20:07 Dose: Not Given Thiamine HCl 200 mg/ Sodium (Chloride) 52 mls @ 100 mls/hr IV ONETIME ONE Stop: 07/28/17 21:31 Last Admin: 07/28/17 21:22 Dose: 100 mls/hr Sodium Chloride (Normal Saline) 1,000 mls @ 999 mls/hr IV ASDIRECTED [facility] Stop: 07/30/17 21:01 Last Admin: 07/28/17 22:28 Dose: 999 mls/hr Magnesium Sulfate 2 gm/ Premix 50 mls @ 25 mls/hr IV Q2H [facility] Stop: 07/29/17 11:14 Last Admin: 07/29/17 10:23 Dose: 25 mls/hr Iopamidol (Isovue-300 (61%)) 125 ml IVPUSH ONETIME ONE Stop: 07/28/17 14:37 Last Admin: 07/28/17 15:48 Dose: 125 ml Ondansetron HCl (Zofran) 4 mg IVPUSH ONETIME ONE Stop: 07/28/17 12:44 Last Admin: 07/28/17 12:55 Dose: 4 mg Pantoprazole Sodium (Protonix Iv) 40 mg IVPUSH ONETIME ONE Stop: 07/28/17 12:44 Last Admin: 07/28/17 12:55 Dose: 40 mg Pantoprazole Sodium (Protonix Iv) 40 mg IV Q12HR [facility] Last Admin: 07/29/17 08:38 Dose: 40 mg Potassium Chloride (Klor-Con M20) 40 meq PO Q4H ROSIE Stop: 07/28/17 21:01 Last Admin: 07/28/17 22:41 Dose: 40 meq Sodium Chloride (Saline Flush) 10 ml FLUSH ONETIME ONE Stop: 07/28/17 14:37 Last Admin: 07/28/17 15:48 Dose: 10 ml - Exam Quality Assessment: DVT Prophylaxis General: Alert, Oriented, Cooperative, No Acute Distress HEENT: Pupils Equal, Pupils Reactive, EOMI, Mucous Membr. Moist/[place] Neck: Supple, Trachea Midline, No JVD Lungs: Clear to Auscultation, Normal Respiratory Effort Cardiovascular: Regular Rhythm, Tachycardia GI/Abdominal Exam: Soft, Non-Tender, No Organomegaly, No Distention, No Abnormal Bruit, No Mass, Pelvis Stable, Other (hypoactive ) (Male) Exam: Deferred Back Exam: Normal Inspection, Full Range of Motion Extremities: Normal Inspection, Normal Range of Motion, Non-Tender, No Pedal Edema, Normal Capillary Refill Peripheral Pulses: 4+: Radial (L), Radial (R), Posterior Tibial (L), Posterior Tibial (R), Dorsalis Pedis (L), Dorsalis Pedis (R) Skin: Warm, Dry, Intact Neurological: No New Focal Deficit Psy/Mental Status: Alert, Normal Affect, Normal Mood - Problem List & Annotations (1) Alcoholism /alcohol abuse SNOMED Code(s): 6286135 Code(s): F10.20 - ALCOHOL DEPENDENCE, UNCOMPLICATED Status: Acute Priority: High Current Visit: Yes (2) Drug dependence SNOMED Code(s): 921174450 Code(s): F19.20 - OTHER PSYCHOACTIVE SUBSTANCE DEPENDENCE, UNCOMPLICATED Status: Acute Priority: High Current Visit: Yes (3) Pancreatitis SNOMED Code(s): 22054027 Code(s): K85.90 - ACUTE PANCREATITIS WITHOUT NECROSIS OR INFECTION, UNSP Status: Acute Priority: High Current Visit: Yes Qualifiers: Chronicity: acute Pancreatitis type: alcohol induced Acute pancreatitis complication: uninfected necrosis Qualified Code(s): K85.21 - Alcohol induced acute pancreatitis with uninfected necrosis (4) Hiatal hernia with gastroesophageal reflux SNOMED Code(s): 304475775 Code(s): K21.9 - GASTRO-ESOPHAGEAL REFLUX DISEASE WITHOUT ESOPHAGITIS; K44.9 - DIAPHRAGMATIC HERNIA WITHOUT OBSTRUCTION OR GANGRENE Status: Acute Priority: Low Current Visit: Yes (5) Hypertriglyceridemia SNOMED Code(s): 532452475 Code(s): E78.1 - PURE HYPERGLYCERIDEMIA Status: Acute Priority: Medium Current Visit: Yes - Problem List Review Problem List Initiated/Reviewed/Updated: Yes - My Orders Last 24 Hours: My Active Orders 07/29/17 10:56 POC Glucose [Blood Glucose Check, Bedside] [RC] Q6HR 07/29/17 13:00 Dextrose 5%-0.9% NaCl [Dextrose 5%-Normal Saline] 1,000 ml IV ASDIRECTED 07/29/17 14:15 Calcium Carbonate 1,200 mg PO BID 07/31/17 05:11 LIPASE [CHEM] AM 08/01/17 05:11 LIPASE [CHEM] AM 08/02/17 05:11 LIPASE [CHEM] AM 08/03/17 05:11 LIPASE [CHEM] AM - Plan Plan:: I/P: Acute: Acute pancreatitis, improving -Risk factors: EtOH abuse, Hypertryglyceridemia, Cocaine use -Likely 2/2 EtOH abuse, cannot rule out gallstones although CT negative and liver enzymes good -Clinically looks stable -Ofelia's Criteria: 1 on admission, 48 hours: incomplete due to no ABG; 2 points (1% predicted mortality) -WBC 11.22-->7.68-->8.79 -CRP 1.4-->10.7-->16 -Lactic Acid 2.6-->1.2 -Anion Gap 18.5-->13.8-->9.6 -Lipase 5814-->4795-->2215 -Abdominal CT (07/28/17): 1. Findings compatible with fairly severe pancreatitis. Fluid noted within the paracolic gutters extending into the pelvis. 2. Fatty infiltration within the liver. 3. Small hiatal hernia with gastroesophageal reflux of contrast. -Supportive care: IV fluids, Pain control, N/V control -NPO until lipase <1000, start D5NS once 3L NS given - decrease rate to 150 today -Gallbladder U/S 07/30/17: 1. Fatty infiltration within the liver 2. Minimal free fluid within Morison's pouch 3. No additional abnormality see on RUQ abdominal US exam -Serial CT if indicated EtOH abuse, chronic -[facility] protocol - 3 this AM -MCV 100-->102.9-->105 -AST 53 -Correct vitamin deficiencies --> Multivitamin, Thiamine, Folic Acid -Consult for substance abuse - refused Dr. Ray VILLALOBOS consult ordered Drug abuse, chronic -Positive Toxicology screen for Opiates, Cocaine, Benzodiazepines -States hasn't taken in about a month -Currently no symptoms of intoxication -Consult for substance abuse - refused Dr. Ray VILLALOBOS consult ordered HTN, acute -160/110 on admission -Likely 2/2 pain with Acute Pancreatitis, detox, IV fluids -Metropolol PRN -0.3mg Clonidine patch -Monitor Resolved: Hypomagenesmia -Mag 1.2 --> 2.0 -Pharmacy to supplement Chronic: EtOH abuse Drug abuse Hiatal hernia with gastritis--> Protonix Hypertryglyceridemia--> 301 Plan: Clinically he is improving and looks good Other orders as indicated above Routine AM labs DVT Prophylaxis: SCD GI Prophylaxis: Protonix Full Code; No PCP
[2017-07-30] MEDS: Calcium Carbonate 600 MG Tab PO SCH ×2 (09:20→20:12)
[2017-07-30] MEDS ORDERED: cloNIDine 0.3 MG/Day Transdermal Patch TRDERM SCH (12:00)
[2017-07-30] MEDS: chlordiazePOXIDE 25 MG Cap PO PRN ×2 (12:05→20:13)
[2017-07-30] MEDS ORDERED: Dextrose 5%-0.9% NaCl 1,000 ML IV SCH (12:15)
[2017-07-30] MEDS: oxyCODONE 5 MG Tab PO PRN ×2 (14:38→20:13)
[2017-07-30] MEDS: Ibuprofen 600 MG Tab PO PRN (14:39)
[2017-07-30] MEDS: Temazepam 15 MG Cap PO PRN (20:13)
[2017-07-31] MEDS: Ibuprofen 600 MG Tab PO PRN ×2 (04:26→12:00)
[2017-07-31] MEDS: oxyCODONE 5 MG Tab PO PRN ×2 (04:26→20:28)
[2017-07-31] MEDS: hydrALAZINE 20 MG/ML SDV IVPUSH PRN ×2 (04:27→23:55)
[2017-07-31] MEDS: chlordiazePOXIDE 25 MG Cap PO PRN (04:27)
--- NOTE | 2017-07-31 06:35 | PCM.PN ---
- General Info Date of Service: 07/31/17 Admission Dx/Problem (Free Text): Admission Diagnosis/Problem Admission Diagnosis/Problem Pancreatitis Subjective Update: In to see Alex. He is lying in bed. He reports 7-8/10 pain but says it is not too bad. He recently received pain meds. We have been doing more oral meds over IV meds. He reports mild RLQ abdominal pain. He has been ambulating. We discussed his lipase levels and him eating. Will try clear liquids for lunch. Advised patient to contact us if pain worsens and we can hold back on diet. He voiced understanding. He has been urinating. No patient concerns. No nursing concerns. Functional Status: Reports: Pain Controlled, Tolerating Diet, Ambulating, Urinating - Review of Systems General: Denies: Fever, Weakness, Fatigue, Malaise, Chills HEENT: Reports: No Symptoms Pulmonary: Reports: No Symptoms. Denies: Shortness of Breath, Pleuritic Chest Pain, Cough, Sputum, Wheezing Cardiovascular: Denies: Chest Pain, Palpitations, Edema Gastrointestinal: Reports: Abdominal Pain (Mild RLQ). Denies: Nausea, Vomiting Genitourinary: Reports: No Symptoms Musculoskeletal: Reports: No Symptoms Skin: Reports: No Symptoms Neurological: Reports: No Symptoms Psychiatric: Reports: No Symptoms - Patient Data Vitals - Most Recent: Last Vital Signs Temp 98.2 F 07/31/17 04:26 Pulse 98 07/31/17 04:27 Resp 16 07/31/17 04:26 BP 149/92 H 07/31/17 04:27 Pulse Ox 96 07/31/17 04:27 Weight - Most Recent: 202 lb 9.6 oz I&O - Last 24 Hours: Intake & Output 07/30/17 07/30/17 07/31/17 14:59 22:59 06:59 Intake Total 2442 1752 Balance 2442 1752 Lab Results Last 24 Hours: Laboratory Results - last 24 hr 07/30/17 07/30/17 07/30/17 Range/Units 06:00 06:00 11:39 Sodium 140 (136-145) mEq/L Potassium 3.6 (3.5-5.1) mEq/L Chloride 107 (98-107) mEq/L Carbon Dioxide 27 (21-32) mEq/L Anion Gap 9.6 (5-15) BUN 5 L (7-18) mg/dL Creatinine 0.8 (0.7-1.3) mg/dL Est Cr Clr Drug Dosing 164.11 mL/min Estimated GFR (MDRD) > 60 (>60) mL/min BUN/Creatinine Ratio 6.3 L (14-18) Glucose 113 H (74-106) mg/dL POC Glucose 108 H (70-105) mg/dL Calcium 7.7 L (8.5-10.1) mg/dL Magnesium 2.0 (1.8-2.4) mg/dl C-Reactive Protein 16.0 H* (<1.0) mg/dL Lipase 2215 H (73-393) U/L 07/30/17 07/31/17 07/31/17 Range/Units 18:37 00:50 06:17 Sodium (136-145) mEq/L Potassium (3.5-5.1) mEq/L Chloride (98-107) mEq/L Carbon Dioxide (21-32) mEq/L Anion Gap (5-15) BUN (7-18) mg/dL Creatinine (0.7-1.3) mg/dL Est Cr Clr Drug Dosing mL/min Estimated GFR (MDRD) (>60) mL/min BUN/Creatinine Ratio (14-18) Glucose (74-106) mg/dL POC Glucose 99 103 110 H (70-105) mg/dL Calcium (8.5-10.1) mg/dL Magnesium (1.8-2.4) mg/dl C-Reactive Protein (<1.0) mg/dL Lipase (73-393) U/L Med Orders - Current: Current Medications Acetaminophen (Tylenol) 650 mg PO Q6H PRN PRN Reason: Pain/Fever Last Admin: 07/30/17 20:14 Dose: 650 mg Albuterol/Ipratropium (Duoneb 3.0-0.5 Mg/3 Ml) 3 ml NEB Q4H PRN PRN Reason: Shortness Of Breath/wheezing Bisacodyl (Dulcolax) 5 mg PO DAILY PRN PRN Reason: Constipation Calcium Carbonate/Glycine (Calcium Carbonate) 1,200 mg PO BID ROSIE Last Admin: 07/30/17 20:12 Dose: 1,200 mg Chlordiazepoxide HCl (Librium) 25 mg PO Q8H PRN PRN Reason: Withdrawal Symptoms Last Admin: 07/31/17 04:27 Dose: 25 mg Clonidine HCl (Catapres) 0.1 mg PO Q4H PRN PRN Reason: Agitation Clonidine HCl (Catapres-Tts 3) 0.3 mg TRDERM Q7D [facility] Last Admin: 07/30/17 12:06 Dose: 0.3 mg Docusate Sodium (Colace) 100 mg PO BID PRN PRN Reason: Constipation Folic Acid (Folic Acid) 1 mg PO DAILY [facility] Stop: 07/31/17 09:01 Last Admin: 07/30/17 09:19 Dose: 1 mg Hydralazine HCl (Apresoline) 20 mg IVPUSH Q4H PRN PRN Reason: Hypertension Last Admin: 07/31/17 04:27 Dose: 20 mg Hydromorphone HCl (Dilaudid) 1 mg IVPUSH Q4H PRN PRN Reason: Pain Last Admin: 07/30/17 16:40 Dose: 1 mg Promethazine HCl 12.5 mg/ (Sodium Chloride) 50.5 mls @ 100 mls/hr IV Q6H PRN PRN Reason: Nausea/Vomiting Last Admin: 07/28/17 22:02 Dose: 100 mls/hr Dextrose/Sodium Chloride (Dextrose 5%-Normal Saline) 1,000 mls @ 125 mls/hr IV ASDIRECTED [facility] Last Admin: 07/30/17 20:25 Dose: 125 mls/hr Ibuprofen (Motrin) 600 mg PO Q6H PRN PRN Reason: Pain (moderate 4-6) Last Admin: 07/31/17 04:26 Dose: 600 mg Lorazepam (Ativan) 2 mg IVPUSH Q4H PRN PRN Reason: Seizures Magnesium Sulfate (Pharmacy To Dose - Magnesium Replacement) 0 dose .XX ASDIRECTED PRN PRN Reason: RX TO WATCH MAG LEVELS Metoprolol Tartrate (Lopressor) 5 mg IVPUSH Q4H PRN PRN Reason: Tachycardia Miscellaneous Information (Remove Patch) 1 ea TRDERM Q72H PRN PRN Reason: patch removal Miscellaneous Information (Remove Patch) 0 ea TRDERM Q7D [facility] Multivitamins (Thera) 1 each PO DAILY [facility] Last Admin: 07/30/17 09:19 Dose: 1 each Ondansetron HCl (Zofran) 4 mg IV Q6H PRN PRN Reason: Nausea/Vomiting Last Admin: 07/28/17 19:59 Dose: 4 mg Oxycodone HCl (Oxycodone) 5 mg PO Q4H PRN PRN Reason: Pain (moderate 4-6) Last Admin: 07/31/17 04:26 Dose: 5 mg Pantoprazole Sodium (Protonix) 40 mg PO Q12HR [facility] Last Admin: 07/30/17 20:13 Dose: 40 mg Polyethylene Glycol (Miralax) 17 gm PO DAILY PRN PRN Reason: Constipation Potassium Chloride (Pharmacy To Dose - Potassium Replacement) 0 dose .XX ASDIRECTED PRN PRN Reason: RX TO WATCH K LEVELS Scopolamine (Transderm-Scop) 1.5 mg TRDERM Q72H PRN PRN Reason: Nausea Last Admin: 07/28/17 22:17 Dose: 1.5 mg Senna/Docusate Sodium (Senna Plus) 1 tab PO BID PRN PRN Reason: Constipation Sodium Chloride (Saline Flush) 10 ml FLUSH ASDIRECTED PRN PRN Reason: Keep Vein Open Last Admin: 07/28/17 12:55 Dose: 10 ml Temazepam (Restoril) 15 mg PO BEDTIME PRN PRN Reason: Insomnia Last Admin: 07/30/17 20:13 Dose: 15 mg Thiamine HCl (Vitamin B-1) 100 mg PO DAILY [facility] Last Admin: 07/30/17 09:18 Dose: 100 mg Discontinued Medications Calcium Carbonate/[facility]cine ([facility]ate) [facility] Diatrizoate Meglum/Diatrizoate Sod (Gastrografin 37%) 90 ml PO ONETIME ONE Stop: 07/28/17 14:37 Last Admin: 07/28/17 15:48 Dose: 90 ml Dicyclomine HCl (Bentyl) 20 mg PO ONETIME ONE Stop: 07/28/17 14:15 Last Admin: 07/28/17 14:28 Dose: 20 mg Diphenhydramine HCl (Benadryl) 25 mg IVPUSH ONETIME ONE Stop: 07/28/17 21:52 Last Admin: 07/28/17 22:06 Dose: 25 mg Diphtheria/Tetanus/Acell Pertussis (Adacel) 0.5 ml IM .ONCE ONE Stop: 07/29/17 08:31 Last Admin: 07/30/17 16:01 Dose: Not Given Hydromorphone HCl (Dilaudid) 0.5 mg IVPUSH ONETIME ONE Stop: 07/28/17 12:44 Last Admin: 07/28/17 12:56 Dose: 0.5 mg Hydromorphone HCl (Dilaudid) 0.5 mg IVPUSH ONETIME ONE Stop: 07/28/17 14:54 Last Admin: 07/28/17 15:03 Dose: 0.5 mg Hydromorphone HCl (Dilaudid) 0.5 mg IVPUSH Q2H PRN PRN Reason: Pain (severe 7-10) Last Admin: 07/28/17 19:59 Dose: 0.5 mg Hydromorphone HCl (Dilaudid) 1 mg IVPUSH Q4HR ONE Stop: 07/28/17 21:53 Last Admin: 07/28/17 22:16 Dose: 1 mg Sodium Chloride (Normal Saline) 1,000 mls @ 250 mls/hr IV ONETIME ONE Stop: 07/28/17 16:42 Last Admin: 07/28/17 12:56 Dose: 250 mls/hr Dextrose/Sodium Chloride (Dextrose 5%-Normal Saline) 1,000 mls @ 125 mls/hr IV ASDIRECTED [facility] Last Infusion: 07/29/17 13:01 Dose: 250 mls/hr Thiamine HCl 200 mg/ Sodium (Chloride) 52 mls @ 100 mls/hr IV ONETIME ONE Stop: 07/28/17 18:21 Last Admin: 07/28/17 20:07 Dose: Not Given Thiamine HCl 200 mg/ Sodium (Chloride) 52 mls @ 100 mls/hr IV ONETIME ONE Stop: 07/28/17 21:31 Last Admin: 07/28/17 21:22 Dose: 100 mls/hr Sodium Chloride (Normal Saline) 1,000 mls @ 999 mls/hr IV ASDIRECTED [facility] Stop: 07/30/17 21:01 Last Admin: 07/28/17 22:28 Dose: 999 mls/hr Magnesium Sulfate 2 gm/ Premix 50 mls @ 25 mls/hr IV Q2H [facility] Stop: 07/29/17 11:14 Last Admin: 07/29/17 10:23 Dose: 25 mls/hr Dextrose/Sodium Chloride (Dextrose 5%-Normal Saline) 1,000 mls @ 250 mls/hr IV ASDIRECTED [facility] Last Admin: 07/30/17 11:41 Dose: 250 mls/hr Iopamidol (Isovue-300 (61%)) 125 ml IVPUSH ONETIME ONE Stop: 07/28/17 14:37 Last Admin: 07/28/17 15:48 Dose: 125 ml Ondansetron HCl (Zofran) 4 mg IVPUSH ONETIME ONE Stop: 07/28/17 12:44 Last Admin: 07/28/17 12:55 Dose: 4 mg Pantoprazole Sodium (Protonix Iv) 40 mg IVPUSH ONETIME ONE Stop: 07/28/17 12:44 Last Admin: 07/28/17 12:55 Dose: 40 mg Pantoprazole Sodium (Protonix Iv) 40 mg IV Q12HR [facility] Last Admin: 07/29/17 08:38 Dose: 40 mg Potassium Chloride (Klor-Con M20) 40 meq PO Q4H [facility] Stop: 07/28/17 21:01 Last Admin: 07/28/17 22:41 Dose: 40 meq Sodium Chloride (Saline Flush) 10 ml FLUSH ONETIME ONE Stop: 07/28/17 14:37 Last Admin: 07/28/17 15:48 Dose: 10 ml - Exam Quality Assessment: DVT Prophylaxis General: Alert, Oriented, Cooperative, No Acute Distress HEENT: Pupils Equal, Pupils Reactive, EOMI, Mucous Membr. Moist/[place] Neck: Supple, Trachea Midline, No JVD Lungs: Clear to Auscultation, Normal Respiratory Effort Cardiovascular: Regular Rate, Regular Rhythm GI/Abdominal Exam: Soft, No Organomegaly, No Distention, No Abnormal Bruit, Tender (mild to RLQ), Abnormal Bowel Sounds (Male) Exam: Deferred Back Exam: Normal Inspection, Full Range of Motion Extremities: Normal Inspection, Normal Range of Motion, Non-Tender, No Pedal Edema, Normal Capillary Refill Peripheral Pulses: 3+: Radial (L), Radial (R), Posterior Tibial (L), Posterior Tibial (R), Dorsalis Pedis (L), Dorsalis Pedis (R) Skin: Warm, Dry, Intact Neurological: No New Focal Deficit Psy/Mental Status: Alert, Normal Affect, Normal Mood - Problem List & Annotations (1) Alcoholism /alcohol abuse SNOMED Code(s): 8785563 Code(s): F10.20 - ALCOHOL DEPENDENCE, UNCOMPLICATED Status: Acute Priority: High Current Visit: Yes (2) Drug dependence SNOMED Code(s): 347560761 Code(s): F19.20 - OTHER PSYCHOACTIVE SUBSTANCE DEPENDENCE, UNCOMPLICATED Status: Acute Priority: High Current Visit: Yes (3) Pancreatitis SNOMED Code(s): 33094833 Code(s): K85.90 - ACUTE PANCREATITIS WITHOUT NECROSIS OR INFECTION, UNSP Status: Acute Priority: High Current Visit: Yes Qualifiers: Chronicity: acute Pancreatitis type: alcohol induced Acute pancreatitis complication: uninfected necrosis Qualified Code(s): K85.21 - Alcohol induced acute pancreatitis with uninfected necrosis (4) Hiatal hernia with gastroesophageal reflux SNOMED Code(s): 078545485 Code(s): K21.9 - GASTRO-ESOPHAGEAL REFLUX DISEASE WITHOUT ESOPHAGITIS; K44.9 - DIAPHRAGMATIC HERNIA WITHOUT OBSTRUCTION OR GANGRENE Status: Acute Priority: Low Current Visit: Yes (5) Hypertriglyceridemia SNOMED Code(s): 004119062 Code(s): E78.1 - PURE HYPERGLYCERIDEMIA Status: Acute Priority: Medium Current Visit: Yes (6) Hypokalemia SNOMED Code(s): 06695476 Code(s): E87.6 - HYPOKALEMIA Status: Acute Priority: High Current Visit : Yes - Problem List Review Problem List Initiated/Reviewed/Updated: Yes - My Orders Last 24 Hours: My Active Orders 07/30/17 11:43 Ambulate [RC] QID 07/30/17 12:00 cloNIDine [Catapres-TTS 3] 0.3 mg TRDERM Q7D 07/30/17 12:15 Dextrose 5%-0.9% NaCl [Dextrose 5%-Normal Saline] 1,000 ml IV ASDIRECTED 07/31/17 06:00 LIPASE [CHEM] AM 08/01/17 05:11 LIPASE [CHEM] AM 08/02/17 05:11 LIPASE [CHEM] AM 08/03/17 05:11 LIPASE [CHEM] AM - Plan Plan:: I/P: Acute: Acute pancreatitis, improving -Risk factors: EtOH abuse, Hypertryglyceridemia, Cocaine use -Likely 2/2 EtOH abuse, cannot rule out gallstones although CT negative and liver enzymes good -Clinically looks stable -Ofelia's Criteria: 1 on admission, 48 hours: incomplete due to no ABG; 2 points (1% predicted mortality) -WBC 11.22-->7.68-->8.79-->10.7 -CRP 1.4-->10.7-->16-->21 -Lactic Acid 2.6-->1.2 -Anion Gap 18.5-->13.8-->9.6-->13.3 -Lipase 5814-->4795-->2215-->1232 -Abdominal CT (07/28/17): 1. Findings compatible with fairly severe pancreatitis. Fluid noted within the paracolic gutters extending into the pelvis. 2. Fatty infiltration within the liver. 3. Small hiatal hernia with gastroesophageal reflux of contrast. -Supportive care: IV fluids, Pain control, N/V control -NPO --> Will advance to clear liquids at lunch today -start D5NS once 3L NS given - decrease rate to 150--> stop today -Gallbladder U/S 07/30/17: 1. Fatty infiltration within the liver 2. Minimal free fluid within Morison's pouch 3. No additional abnormality see on RUQ abdominal US exam -Serial CT if indicated EtOH abuse, chronic -[facility] protocol - 0 this AM -MCV 100-->102.9-->105 -AST 53 -Correct vitamin deficiencies --> Multivitamin, Thiamine, Folic Acid -Consult for substance abuse - refused Dr. Ray VILLALOBOS consult ordered Drug abuse, chronic -Positive Toxicology screen for Opiates, Cocaine, Benzodiazepines -States hasn't taken in about a month -Currently no symptoms of intoxication -Consult for substance abuse - refused Dr. Ray VILLALOBOS consult ordered HTN, acute, improved -160/110 on admission -Likely 2/2 pain with Acute Pancreatitis, detox, IV fluids -Hydralizine PRN -0.3mg Clonidine patch -Monitor Hypokalemia -Potassium 3.3 -Pharmacy to monitor and supplement Resolved: Hypomagenesmia -Mag 1.2 --> 2.0 -Pharmacy to supplement Chronic: EtOH abuse Drug abuse Hiatal hernia with gastritis--> Protonix Hypertryglyceridemia--> 301 Plan: Clinically he is improving and looks good Other orders as indicated above Routine AM labs DVT Prophylaxis: SCD GI Prophylaxis: Protonix Full Code; No PCP LOS >96 hours due to slow response to treatment
[2017-07-31] MEDS: Multivitamins,Therapeutic Tab PO SCH (08:11)
[2017-07-31] MEDS: Calcium Carbonate 600 MG Tab PO SCH ×2 (08:11→20:29)
[2017-07-31] MEDS: Thiamine 100 MG Tab PO SCH (08:11)
[2017-07-31] MEDS: Folic Acid 1 MG Tab PO SCH (08:12)
[2017-07-31] MEDS: Pantoprazole 40 MG Tab.CR PO SCH ×2 (08:12→20:29)
[2017-07-31] MEDS ORDERED: Potassium Chloride 20 MEQ Tab.ER PO ONE (09:00)
[2017-07-31] MEDS: Acetaminophen Soln 650 MG/20.3 ML UD Cup PO PRN (16:14)
[2017-07-31] MEDS: Temazepam 15 MG Cap PO PRN (20:28)
[2017-08-01] MEDS: oxyCODONE 5 MG Tab PO PRN ×4 (03:43→21:00)
[2017-08-01] MEDS: Acetaminophen Soln 650 MG/20.3 ML UD Cup PO PRN ×2 (03:44→10:27)
[2017-08-01] MEDS: Calcium Carbonate 600 MG Tab PO SCH ×2 (09:10→21:02)
[2017-08-01] MEDS: Pantoprazole 40 MG Tab.CR PO SCH ×2 (09:10→21:01)
[2017-08-01] MEDS: Multivitamins,Therapeutic Tab PO SCH (09:10)
[2017-08-01] MEDS: Thiamine 100 MG Tab PO SCH (09:11)
[2017-08-01] MEDS: hydrALAZINE 20 MG/ML SDV IVPUSH PRN (09:11)
--- NOTE | 2017-08-01 09:32 | PCM.PN ---
- General Info Date of Service: 08/01/17 Admission Dx/Problem (Free Text): Admission Diagnosis/Problem Admission Diagnosis/Problem Pancreatitis Subjective Update: In to see Alex. He is lying in bed. He reports 7-8/10 pain but says it is not too bad. He recently received pain meds. We have been doing more oral meds over IV meds. He reports mild RLQ abdominal pain. He has been ambulating. We discussed his lipase levels and him eating. Will try clear liquids for lunch. Advised patient to contact us if pain worsens and we can hold back on diet. He voiced understanding. He has been urinating. No patient concerns. No nursing concerns. Functional Status: Reports: Pain Controlled, Tolerating Diet, Ambulating, Urinating. Denies: New Symptoms - Review of Systems General: Denies: Fever, Weakness, Fatigue, Malaise, Chills HEENT: Reports: No Symptoms Pulmonary: Denies: Shortness of Breath Cardiovascular: Denies: Palpitations, Dyspnea on Exertion, Edema, Lightheadedness Gastrointestinal: Reports: Abdominal Pain (on both side of his abdomen (lateral) ). Denies: Nausea, Vomiting Genitourinary: Reports: No Symptoms Musculoskeletal: Reports: No Symptoms Skin: Denies: Cyanosis, Jaundice, Mottled, Pallor, Diaphoresis, Bruising, Pruritis, Rash Neurological: Denies: Confusion, Difficulty Walking, Weakness, Gait Disturbance Psychiatric: Denies: Depression, Anxiety, Agitation, Hallucinations Systems Review Comment:: No significant overnight or acute issues. He is afebrile w/ mild leukocytosis. His CRP is 15.9 and Lipase is now 1119. His blood pressure still not well controlled. He is tolerating current diet. - Patient Data Vitals - Most Recent: Last Vital Signs Temp 36.8 C 08/01/17 08:05 Pulse 66 08/01/17 08:05 Resp 19 08/01/17 08:05 BP 146/76 H 08/01/17 08:05 Pulse Ox 98 08/01/17 08:05 Weight - Most Recent: 89.539 kg I&O - Last 24 Hours: Intake & Output 07/31/17 08/01/17 08/01/17 22:59 06:59 14:59 Intake Total 1989 1599 Balance 1989 1599 Lab Results Last 24 Hours: Laboratory Results - last 24 hr 07/31/17 08/01/17 08/01/17 Range/Units 11:00 06:05 06:05 WBC 9.14 H (4.23-9.07) K/mm3 RBC 3.70 L (4.63-6.08) M/mm3 Hgb 13.1 L (13.7-17.5) gm/L Hct 38.1 L (40.1-51.0) % MCV 103.0 H (79.0-92.2) fl MCH 35.4 H (25.7-32.2) pg MCHC 34.4 (32.2-35.5) g/dl RDW Std Deviation 52.2 H (35.1-43.9) fL Plt Count 273 (163-337) K/mm3 MPV 9.7 (9.4-12.3) fl Neut % (Auto) 77.0 H (34.0-67.9) % Lymph % (Auto) 10.4 L (21.8-53.1) % [place] % (Auto) 10.7 (5.3-12.2) % Eos % (Auto) 1.5 (0.8-7.0) Baso % (Auto) 0.2 (0.1-1.2) % Neut # (Auto) 7.03 H (1.78-5.38) K/mm3 Lymph # (Auto) 0.95 L (1.32-3.57) K/mm3 [place] # (Auto) 0.98 H (0.30-0.82) K/mm3 Eos # (Auto) 0.14 (0.04-0.54) K/mm3 Baso # (Auto) 0.02 (0.01-0.08) K/mm3 Sodium 140 (136-145) mEq/L Potassium 3.6 (3.5-5.1) mEq/L Chloride 105 (98-107) mEq/L Carbon Dioxide 24 (21-32) mEq/L Anion Gap 14.6 (5-15) BUN 5 L (7-18) mg/dL Creatinine 0.8 (0.7-1.3) mg/dL Est Cr Clr Drug Dosing 164.11 mL/min Estimated GFR (MDRD) > 60 (>60) mL/min BUN/Creatinine Ratio 6.3 L (14-18) Glucose 98 (74-106) mg/dL POC Glucose 106 H (70-105) mg/dL Calcium 8.1 L (8.5-10.1) mg/dL Magnesium 1.9 (1.8-2.4) mg/dl C-Reactive Protein 15.4 H* (<1.0) mg/dL Lipase 1119 H (73-393) U/L Med Orders - Current: Current Medications Acetaminophen (Tylenol) 650 mg PO Q6H PRN PRN Reason: Pain/Fever Last Admin: 08/01/17 03:44 Dose: 650 mg Albuterol/Ipratropium (Duoneb 3.0-0.5 Mg/3 Ml) 3 ml NEB Q4H PRN PRN Reason: Shortness Of Breath/wheezing Bisacodyl (Dulcolax) 5 mg PO DAILY PRN PRN Reason: Constipation Calcium Carbonate/Glycine (Calcium Carbonate) 1,200 mg PO BID [facility] Last Admin: 08/01/17 09:10 Dose: 1,200 mg Chlordiazepoxide HCl (Librium) 25 mg PO Q8H PRN PRN Reason: Withdrawal Symptoms Last Admin: 07/31/17 04:27 Dose: 25 mg Clonidine HCl (Catapres) 0.1 mg PO Q4H PRN PRN Reason: Agitation Clonidine HCl (Catapres-Tts 3) 0.3 mg TRDERM Q7D [facility] Last Admin: 07/30/17 12:06 Dose: 0.3 mg Docusate Sodium (Colace) 100 mg PO BID PRN PRN Reason: Constipation Hydralazine HCl (Apresoline) 20 mg IVPUSH Q4H PRN PRN Reason: Hypertension Last Admin: 08/01/17 09:11 Dose: 20 mg Hydromorphone HCl (Dilaudid) 1 mg IVPUSH Q4H PRN PRN Reason: Pain Last Admin: 07/30/17 16:40 Dose: 1 mg Promethazine HCl 12.5 mg/ (Sodium Chloride) 50.5 mls @ 100 mls/hr IV Q6H PRN PRN Reason: Nausea/Vomiting Last Admin: 07/28/17 22:02 Dose: 100 mls/hr Ibuprofen (Motrin) 600 mg PO Q6H PRN PRN Reason: Pain (moderate 4-6) Last Admin: 07/31/17 12:00 Dose: 600 mg Lorazepam (Ativan) 2 mg IVPUSH Q4H PRN PRN Reason: Seizures Magnesium Sulfate (Pharmacy To Dose - Magnesium Replacement) 0 dose .XX ASDIRECTED PRN PRN Reason: RX TO WATCH MAG LEVELS Metoprolol Tartrate (Lopressor) 5 mg IVPUSH Q4H PRN PRN Reason: Tachycardia Miscellaneous Information (Remove Patch) 1 ea TRDERM Q72H PRN PRN Reason: patch removal Miscellaneous Information (Remove Patch) 0 ea TRDERM Q7D [facility] Multivitamins (Thera) 1 each PO DAILY ROSIE Last Admin: 08/01/17 09:10 Dose: 1 each Ondansetron HCl (Zofran) 4 mg IV Q6H PRN PRN Reason: Nausea/Vomiting Last Admin: 07/28/17 19:59 Dose: 4 mg Oxycodone HCl (Oxycodone) 5 mg PO Q4H PRN PRN Reason: Pain (moderate 4-6) Last Admin: 08/01/17 03:43 Dose: 5 mg Pantoprazole Sodium (Protonix) 40 mg PO Q12HR [facility] Last Admin: 08/01/17 09:10 Dose: 40 mg Polyethylene Glycol (Miralax) 17 gm PO DAILY PRN PRN Reason: Constipation Potassium Chloride (Pharmacy To Dose - Potassium Replacement) 0 dose .XX ASDIRECTED PRN PRN Reason: RX TO WATCH K LEVELS Scopolamine (Transderm-Scop) 1.5 mg TRDERM Q72H PRN PRN Reason: Nausea Last Admin: 07/28/17 22:17 Dose: 1.5 mg Senna/Docusate Sodium (Senna Plus) 1 tab PO BID PRN PRN Reason: Constipation Sodium Chloride (Saline Flush) 10 ml FLUSH ASDIRECTED PRN PRN Reason: Keep Vein Open Last Admin: 07/28/17 12:55 Dose: 10 ml Temazepam (Restoril) 15 mg PO BEDTIME PRN PRN Reason: Insomnia Last Admin: 07/31/17 20:28 Dose: 15 mg Thiamine HCl (Vitamin B-1) 100 mg PO DAILY [facility] Last Admin: 08/01/17 09:11 Dose: 100 mg Discontinued Medications Calcium Carbonate/Glycine (Calcium Carbonate) 1,200 mg PO BIDMEALS [facility] Diatrizoate Meglum/Diatrizoate Sod (Gastrografin 37%) 90 ml PO ONETIME ONE Stop: 07/28/17 14:37 Last Admin: 07/28/17 15:48 Dose: 90 ml Dicyclomine HCl (Bentyl) 20 mg PO ONETIME ONE Stop: 07/28/17 14:15 Last Admin: 07/28/17 14:28 Dose: 20 mg Diphenhydramine HCl (Benadryl) 25 mg IVPUSH ONETIME ONE Stop: 07/28/17 21:52 Last Admin: 07/28/17 22:06 Dose: 25 mg Diphtheria/Tetanus/Acell Pertussis (Adacel) 0.5 ml IM .ONCE ONE Stop: 07/29/17 08:31 Last Admin: 07/30/17 16:01 Dose: Not Given Folic Acid (Folic Acid) 1 mg PO DAILY ROSIE Stop: 07/31/17 09:01 Last Admin: 07/31/17 08:12 Dose: 1 mg Hydromorphone HCl (Dilaudid) 0.5 mg IVPUSH ONETIME ONE Stop: 07/28/17 12:44 Last Admin: 07/28/17 12:56 Dose: 0.5 mg Hydromorphone HCl (Dilaudid) 0.5 mg IVPUSH ONETIME ONE Stop: 07/28/17 14:54 Last Admin: 07/28/17 15:03 Dose: 0.5 mg Hydromorphone HCl (Dilaudid) 0.5 mg IVPUSH Q2H PRN PRN Reason: Pain (severe 7-10) Last Admin: 07/28/17 19:59 Dose: 0.5 mg Hydromorphone HCl (Dilaudid) 1 mg IVPUSH Q4HR ONE Stop: 07/28/17 21:53 Last Admin: 07/28/17 22:16 Dose: 1 mg Sodium Chloride (Normal Saline) 1,000 mls @ 250 mls/hr IV ONETIME ONE Stop: 07/28/17 16:42 Last Admin: 07/28/17 12:56 Dose: 250 mls/hr Dextrose/Sodium Chloride (Dextrose 5%-Normal Saline) 1,000 mls @ 125 mls/hr IV ASDIRECTED [facility] Last Infusion: 07/29/17 13:01 Dose: 250 mls/hr Thiamine HCl 200 mg/ Sodium (Chloride) 52 mls @ 100 mls/hr IV ONETIME ONE Stop: 07/28/17 18:21 Last Admin: 07/28/17 20:07 Dose: Not Given Thiamine HCl 200 mg/ Sodium (Chloride) 52 mls @ 100 mls/hr IV ONETIME ONE Stop: 07/28/17 21:31 Last Admin: 07/28/17 21:22 Dose: 100 mls/hr Sodium Chloride (Normal Saline) 1,000 mls @ 999 mls/hr IV ASDIRECTED [facility] Stop: 07/30/17 21:01 Last Admin: 07/28/17 22:28 Dose: 999 mls/hr Magnesium Sulfate 2 gm/ Premix 50 mls @ 25 mls/hr IV Q2H [facility] Stop: 07/29/17 11:14 Last Admin: 07/29/17 10:23 Dose: 25 mls/hr Dextrose/Sodium Chloride (Dextrose 5%-Normal Saline) 1,000 mls @ 250 mls/hr IV ASDIRECTED [facility] Last Admin: 07/30/17 11:41 Dose: 250 mls/hr Dextrose/Sodium Chloride (Dextrose 5%-Normal Saline) 1,000 mls @ 125 mls/hr IV ASDIRECTED [facility] Last Admin: 07/30/17 20:25 Dose: 125 mls/hr Iopamidol (Isovue-300 (61%)) 125 ml IVPUSH ONETIME ONE Stop: 07/28/17 14:37 Last Admin: 07/28/17 15:48 Dose: 125 ml Ondansetron HCl (Zofran) 4 mg IVPUSH ONETIME ONE Stop: 07/28/17 12:44 Last Admin: 07/28/17 12:55 Dose: 4 mg Pantoprazole Sodium (Protonix Iv) 40 mg IVPUSH ONETIME ONE Stop: 07/28/17 12:44 Last Admin: 07/28/17 12:55 Dose: 40 mg Pantoprazole Sodium (Protonix Iv) 40 mg IV Q12HR [facility] Last Admin: 07/29/17 08:38 Dose: 40 mg Potassium Chloride (Klor-Con M20) 40 meq PO Q4H [facility] Stop: 07/28/17 21:01 Last Admin: 07/28/17 22:41 Dose: 40 meq Potassium Chloride (Klor-Con M20) 40 meq PO ONETIME ONE Stop: 07/31/17 09:01 Last Admin: 07/31/17 09:22 Dose: 40 meq Sodium Chloride (Saline Flush) 10 ml FLUSH ONETIME ONE Stop: 07/28/17 14:37 Last Admin: 07/28/17 15:48 Dose: 10 ml - Exam General: Alert, Oriented, Cooperative, No Acute Distress HEENT: Pupils Equal, Pupils Reactive, EOMI, Mucous Membr. Moist/[place] Neck: Supple, Trachea Midline, No JVD, No Thyromegaly Lungs: Clear to Auscultation, Normal Respiratory Effort Cardiovascular: Regular Rate, Regular Rhythm GI/Abdominal Exam: Normal Bowel Sounds, Soft, No Organomegaly, No Distention, No Abnormal Bruit, No Mass, Tender (on both side of his abdomen ). No: Guarding , Rigid, Rebound, Hepatomegaly (Male) Exam: Deferred Back Exam: Normal Inspection, Full Range of Motion Extremities: Normal Inspection, Normal Range of Motion, Non-Tender, No Pedal Edema, Normal Capillary Refill Peripheral Pulses: 2+: Dorsalis Pedis (L), Dorsalis Pedis (R) Skin: Warm, Dry, Intact Neurological: No New Focal Deficit Psy/Mental Status: Alert, Normal Affect, Normal Mood - Problem List Review Problem List Initiated/Reviewed/Updated: Yes - My Orders Last 24 Hours: My Active Orders 08/01/17 Breakfast Regular Diet [DIET] 08/02/17 05:11 BASIC METABOLIC PANEL,BMP [CHEM] AM C-REACTIVE PROTEIN [CHEM] AM CBC WITH AUTO DIFF [HEME] AM MAGNESIUM [CHEM] AM 08/06/17 12:00 Remove Patch 0 ea TRDERM Q7D - Plan Plan:: I/P: Acute: Acute Pancreatitis, Continues to Improve -Risk factors: EtOH abuse, Hypertryglyceridemia, Cocaine use -Likely 2/2 EtOH abuse, cannot rule out gallstones although CT negative and liver enzymes good -Clinically looks stable -[facility]'s Criteria: 1 on admission, 48 hours: incomplete due to no ABG; 2 points (1% predicted mortality) -WBC 11.22-->7.68-->8.79-->10.7--> 9.14 -CRP 1.4-->10.7-->16-->21-->15 -Lactic Acid 2.6-->1.2 -Anion Gap 18.5-->13.8-->9.6-->13.3 -Lipase 5814-->4795-->2215-->1232--> 1119 -Abdominal CT (07/28/17): 1. Findings compatible with fairly severe pancreatitis. Fluid noted within the paracolic gutters extending into the pelvis. 2. Fatty infiltration within the liver. 3. Small hiatal hernia with gastroesophageal reflux of contrast. -Supportive care: IV fluids, Pain control, N/V control -NPO --> Will advance to clear liquids at lunch today -start D5NS once 3L NS given - decrease rate to 150--> stop today -Gallbladder U/S 07/30/17: 1. Fatty infiltration within the liver 2. Minimal free fluid within Morison's pouch 3. No additional abnormality see on RUQ abdominal US exam -Serial CT if indicated HTN, Not well controlled -Acute -160/110 on admission -No chronic hypokalemia -Likely 2/2 pain with Acute Pancreatitis, detox, IV fluids -Hydralizine PRN/0.3mg Clonidine Patch -Clonidine 0.3 mg po x1 now and Bumex 0.5 IVP x1 now -HCTZ/Triamterene 25-37.5 mg po daily start tonight at 2100 -Continue to Monitor EtOH Abuse, Chronic -[facility] protocol - 0 this AM -MCV 100-->102.9-->105 -AST 53 -Correct vitamin deficiencies --> Multivitamin, Thiamine, Folic Acid -Consult for substance abuse - refused LAC and Tele-psych consult ordered Drug Abuse, Chronic -Positive Toxicology screen for Opiates, Cocaine, Benzodiazepines -States hasn't taken in about a month -Currently no symptoms of intoxication -Consult for substance abuse - refused LAC and Dr. Bell consult Resolved: S/p Hypomagenesmia -Mag 1.2 --> 2.0 -Pharmacy to supplement S/p Hypokalemia -Potassium 3.3--> 3.6 -Pharmacy to monitor and supplement Chronic: EtOH abuse Drug abuse Hiatal hernia with gastritis, on Protonix Hypertryglyceridemia Plan: He is clinically stable but his pressure are not Advanced diet to regular non-fatty/greasy meal as tolerated Routine AM labs DVT Prophylaxis: SCD GI Prophylaxis: Protonix Other orders as indicated above Encourage to ambulate as tolerated Full Code: No PCP LOS >96 hours due to slow response to treatment
[2017-08-01] MEDS ORDERED: cloNIDine 0.1 MG Tab PO ONE (13:53)
[2017-08-01] MEDS ORDERED: Bumetanide 1 MG/4 ML MDV IVPUSH ONE (13:54)
[2017-08-01] MEDS: Potassium Chloride 20 MEQ Tab.ER PO SCH ×2 (15:06→18:58)
[2017-08-01] MEDS ORDERED: Hydrochlorothiazide/Triamterene 25-37.5 MG Cap PO ONE (20:30)
[2017-08-01] MEDS: Temazepam 15 MG Cap PO PRN (21:00)
[2017-08-01] MEDS: Ibuprofen 600 MG Tab PO PRN (21:02)
[2017-08-02] MEDS: Ibuprofen 600 MG Tab PO PRN ×4 (03:00→21:59)
[2017-08-02] MEDS: oxyCODONE 5 MG Tab PO PRN ×2 (03:01→21:58)
--- NOTE | 2017-08-02 07:55 | PCM.PN ---
- General Info Date of Service: 08/02/17 Admission Dx/Problem (Free Text): Admission Diagnosis/Problem Admission Diagnosis/Problem Pancreatitis Subjective Update: Follow Up. Functional Status: Reports: Pain Controlled, Tolerating Diet, Ambulating, Urinating Pain Score: 5 - Review of Systems General: Denies: Fever, Weakness, Fatigue, Malaise, Chills HEENT: Reports: No Symptoms Pulmonary: Denies: Shortness of Breath, Pleuritic Chest Pain, Cough Cardiovascular: Reports: Chest Pain, Palpitations, Edema Gastrointestinal: Reports: Abdominal Pain, Flatus. Denies: Constipation, Decreased Appetite, Diarrhea, Difficulty Swallowing, Nausea, Vomiting Genitourinary: Reports: No Symptoms Musculoskeletal: Reports: No Symptoms Skin: Denies: Cyanosis, Jaundice, Mottled, Pallor, Bruising, Rash Neurological: Reports: No Symptoms Psychiatric: Denies: Depression, Anxiety, Agitation, Hallucinations Systems Review Comment:: No significant overnight or acute issues. He looks comfortably lying in bed. He still complaints of abdominal pain localized to both sides of his abdomen. He is febrile and w/o leukocytosis. His bleed pressures have improved. His Lipase level is about he same as yesterday but CRP is now down to 9.1. - Patient Data Vitals - Most Recent: Last Vital Signs Temp 37.4 C 08/01/17 20:59 Pulse 80 08/01/17 20:59 Resp 20 08/01/17 20:59 BP 142/78 H 08/01/17 20:59 Pulse Ox 98 08/01/17 20:59 Weight - Most Recent: 86.001 kg I&O - Last 24 Hours: Intake & Output 08/01/17 08/02/17 08/02/17 22:59 06:59 14:59 Intake Total 1020 1040 Output Total 600 1400 Balance 420 -360 Lab Results Last 24 Hours: Laboratory Results - last 24 hr 08/02/17 08/02/17 Range/Units 06:30 06:30 WBC 9.01 (4.23-9.07) K/mm3 RBC 3.99 L (4.63-6.08) M/mm3 Hgb 14.1 (13.7-17.5) gm/L Hct 41.1 (40.1-51.0) % MCV 103.0 H (79.0-92.2) fl MCH 35.3 H (25.7-32.2) pg MCHC 34.3 (32.2-35.5) g/dl RDW Std Deviation 53.0 H (35.1-43.9) fL Plt Count 313 (163-337) K/mm3 MPV 9.3 L (9.4-12.3) fl Neut % (Auto) 65.9 (34.0-67.9) % Lymph % (Auto) 14.8 L (21.8-53.1) % [place] % (Auto) 15.4 H (5.3-12.2) % Eos % (Auto) 3.0 (0.8-7.0) Baso % (Auto) 0.2 (0.1-1.2) % Neut # (Auto) 5.94 H (1.78-5.38) K/mm3 Lymph # (Auto) 1.33 (1.32-3.57) K/mm3 [place] # (Auto) 1.39 H (0.30-0.82) K/mm3 Eos # (Auto) 0.27 (0.04-0.54) K/mm3 Baso # (Auto) 0.02 (0.01-0.08) K/mm3 Manual Slide Review Normal smear Sodium 138 (136-145) mEq/L Potassium 4.1 (3.5-5.1) mEq/L Chloride 102 (98-107) mEq/L Carbon Dioxide 26 (21-32) mEq/L Anion Gap 14.1 (5-15) BUN 7 (7-18) mg/dL Creatinine 0.8 (0.7-1.3) mg/dL Est Cr Clr Drug Dosing 164.11 mL/min Estimated GFR (MDRD) > 60 (>60) mL/min BUN/Creatinine Ratio 8.8 L (14-18) Glucose 94 (74-106) mg/dL Calcium 9.1 (8.5-10.1) mg/dL Magnesium 2.1 (1.8-2.4) mg/dl C-Reactive Protein 9.1 H* (<1.0) mg/dL Lipase 1119 H (73-393) U/L Med Orders - Current: Current Medications Acetaminophen (Tylenol) 650 mg PO Q6H PRN PRN Reason: Pain/Fever Last Admin: 08/01/17 10:27 Dose: 650 mg Albuterol/Ipratropium (Duoneb 3.0-0.5 Mg/3 Ml) 3 ml NEB Q4H PRN PRN Reason: Shortness Of Breath/wheezing Bisacodyl (Dulcolax) 5 mg PO DAILY PRN PRN Reason: Constipation Calcium Carbonate/Glycine (Calcium Carbonate) 1,200 mg PO BID [facility] Last Admin: 08/01/17 21:02 Dose: 1,200 mg Chlordiazepoxide HCl (Librium) 25 mg PO Q8H PRN PRN Reason: Withdrawal Symptoms Last Admin: 07/31/17 04:27 Dose: 25 mg Clonidine HCl (Catapres) 0.1 mg PO Q4H PRN PRN Reason: Agitation Clonidine HCl (Catapres-Tts 3) 0.3 mg TRDERM Q7D [facility] Last Admin: 07/30/17 12:06 Dose: 0.3 mg Docusate Sodium (Colace) 100 mg PO BID PRN PRN Reason: Constipation Hydralazine HCl (Apresoline) 20 mg IVPUSH Q4H PRN PRN Reason: Hypertension Last Admin: 08/01/17 09:11 Dose: 20 mg Hydromorphone HCl (Dilaudid) 1 mg IVPUSH Q4H PRN PRN Reason: Pain Last Admin: 07/30/17 16:40 Dose: 1 mg Promethazine HCl 12.5 mg/ (Sodium Chloride) 50.5 mls @ 100 mls/hr IV Q6H PRN PRN Reason: Nausea/Vomiting Last Admin: 07/28/17 22:02 Dose: 100 mls/hr Ibuprofen (Motrin) 600 mg PO Q6H PRN PRN Reason: Pain (moderate 4-6) Last Admin: 08/02/17 03:00 Dose: 600 mg Lorazepam (Ativan) 2 mg IVPUSH Q4H PRN PRN Reason: Seizures Magnesium Sulfate (Pharmacy To Dose - Magnesium Replacement) 0 dose .XX ASDIRECTED PRN PRN Reason: RX TO WATCH MAG LEVELS Metoprolol Tartrate (Lopressor) 5 mg IVPUSH Q4H PRN PRN Reason: Tachycardia Miscellaneous Information (Remove Patch) 1 ea TRDERM Q72H PRN PRN Reason: patch removal Miscellaneous Information (Remove Patch) 0 ea TRDERM Q7D [facility] Multivitamins (Thera) 1 each PO DAILY [facility] Last Admin: 08/01/17 09:10 Dose: 1 each Ondansetron HCl (Zofran) 4 mg IV Q6H PRN PRN Reason: Nausea/Vomiting Last Admin: 07/28/17 19:59 Dose: 4 mg Oxycodone HCl (Oxycodone) 5 mg PO Q4H PRN PRN Reason: Pain (moderate 4-6) Last Admin: 08/02/17 03:01 Dose: 5 mg Pantoprazole Sodium (Protonix) 40 mg PO Q12HR [facility] Last Admin: 08/01/17 21:01 Dose: 40 mg Polyethylene Glycol (Miralax) 17 gm PO DAILY PRN PRN Reason: Constipation Potassium Chloride (Pharmacy To Dose - Potassium Replacement) 0 dose .XX ASDIRECTED PRN PRN Reason: RX TO WATCH K LEVELS Scopolamine (Transderm-Scop) 1.5 mg TRDERM Q72H PRN PRN Reason: Nausea Last Admin: 07/28/17 22:17 Dose: 1.5 mg Senna/Docusate Sodium (Senna Plus) 1 tab PO BID PRN PRN Reason: Constipation Sodium Chloride (Saline Flush) 10 ml FLUSH ASDIRECTED PRN PRN Reason: Keep Vein Open Last Admin: 07/28/17 12:55 Dose: 10 ml Temazepam (Restoril) 15 mg PO BEDTIME PRN PRN Reason: Insomnia Last Admin: 08/01/17 21:00 Dose: 15 mg Thiamine HCl (Vitamin B-1) 100 mg PO DAILY [facility] Last Admin: 08/01/17 09:11 Dose: 100 mg Triamterene/HCTZ (Dyazide 25-37.5 Mg) 1 each PO DAILY [facility] Discontinued Medications Bumetanide (Bumex) 0.5 mg IVPUSH ONETIME ONE Stop: 08/01/17 13:55 Last Admin: 08/01/17 15:05 Dose: 0.5 mg Calcium Carbonate/Glycine (Calcium Carbonate) 1,200 mg PO BIDMEALS [facility] Clonidine HCl (Catapres) 0.2 mg PO ONETIME ONE Stop: 08/01/17 13:54 Last Admin: 08/01/17 15:06 Dose: 0.2 mg Diatrizoate Meglum/Diatrizoate Sod (Gastrografin 37%) 90 ml PO ONETIME ONE Stop: 07/28/17 14:37 Last Admin: 07/28/17 15:48 Dose: 90 ml Dicyclomine HCl (Bentyl) 20 mg PO ONETIME ONE Stop: 07/28/17 14:15 Last Admin: 07/28/17 14:28 Dose: 20 mg Diphenhydramine HCl (Benadryl) 25 mg IVPUSH ONETIME ONE Stop: 07/28/17 21:52 Last Admin: 07/28/17 22:06 Dose: 25 mg Diphtheria/Tetanus/Acell Pertussis (Adacel) 0.5 ml IM .ONCE ONE Stop: 07/29/17 08:31 Last Admin: 07/30/17 16:01 Dose: Not Given Folic Acid (Folic Acid) 1 mg PO DAILY [facility] Stop: 07/31/17 09:01 Last Admin: 07/31/17 08:12 Dose: 1 mg Hydromorphone HCl (Dilaudid) 0.5 mg IVPUSH ONETIME ONE Stop: 07/28/17 12:44 Last Admin: 07/28/17 12:56 Dose: 0.5 mg Hydromorphone HCl (Dilaudid) 0.5 mg IVPUSH ONETIME ONE Stop: 07/28/17 14:54 Last Admin: 07/28/17 15:03 Dose: 0.5 mg Hydromorphone HCl (Dilaudid) 0.5 mg IVPUSH Q2H PRN PRN Reason: Pain (severe 7-10) Last Admin: 07/28/17 19:59 Dose: 0.5 mg Hydromorphone HCl (Dilaudid) 1 mg IVPUSH Q4HR ONE Stop: 07/28/17 21:53 Last Admin: 07/28/17 22:16 Dose: 1 mg Sodium Chloride (Normal Saline) 1,000 mls @ 250 mls/hr IV ONETIME ONE Stop: 07/28/17 16:42 Last Admin: 07/28/17 12:56 Dose: 250 mls/hr Dextrose/Sodium Chloride (Dextrose 5%-Normal Saline) 1,000 mls @ 125 mls/hr IV ASDIRECTED [facility] Last Infusion: 07/29/17 13:01 Dose: 250 mls/hr Thiamine HCl 200 mg/ Sodium (Chloride) 52 mls @ 100 mls/hr IV ONETIME ONE Stop: 07/28/17 18:21 Last Admin: 07/28/17 20:07 Dose: Not Given Thiamine HCl 200 mg/ Sodium (Chloride) 52 mls @ 100 mls/hr IV ONETIME ONE Stop: 07/28/17 21:31 Last Admin: 07/28/17 21:22 Dose: 100 mls/hr Sodium Chloride (Normal Saline) 1,000 mls @ 999 mls/hr IV ASDIRECTED [facility] Stop: 07/30/17 21:01 Last Admin: 07/28/17 22:28 Dose: 999 mls/hr Magnesium Sulfate 2 gm/ Premix 50 mls @ 25 mls/hr IV Q2H [facility] Stop: 07/29/17 11:14 Last Admin: 07/29/17 10:23 Dose: 25 mls/hr Dextrose/Sodium Chloride (Dextrose 5%-Normal Saline) 1,000 mls @ 250 mls/hr IV ASDIRECTED [facility] Last Admin: 07/30/17 11:41 Dose: 250 mls/hr Dextrose/Sodium Chloride (Dextrose 5%-Normal Saline) 1,000 mls @ 125 mls/hr IV ASDIRECTED [facility] Last Admin: 07/30/17 20:25 Dose: 125 mls/hr Iopamidol (Isovue-300 (61%)) 125 ml IVPUSH ONETIME ONE Stop: 07/28/17 14:37 Last Admin: 07/28/17 15:48 Dose: 125 ml Ondansetron HCl (Zofran) 4 mg IVPUSH ONETIME ONE Stop: 07/28/17 12:44 Last Admin: 07/28/17 12:55 Dose: 4 mg Pantoprazole Sodium (Protonix Iv) 40 mg IVPUSH ONETIME ONE Stop: 07/28/17 12:44 Last Admin: 07/28/17 12:55 Dose: 40 mg Pantoprazole Sodium (Protonix Iv) 40 mg IV Q12HR [facility] Last Admin: 07/29/17 08:38 Dose: 40 mg Potassium Chloride (Klor-Con M20) 40 meq PO Q4H [facility] Stop: 07/28/17 21:01 Last Admin: 07/28/17 22:41 Dose: 40 meq Potassium Chloride (Klor-Con M20) 40 meq PO ONETIME ONE Stop: 07/31/17 09:01 Last Admin: 07/31/17 09:22 Dose: 40 meq Potassium Chloride (Klor-Con M20) 40 meq PO Q4H [facility] Stop: 08/01/17 15:01 Last Admin: 08/01/17 18:58 Dose: 40 meq Sodium Chloride (Saline Flush) 10 ml FLUSH ONETIME ONE Stop: 07/28/17 14:37 Last Admin: 07/28/17 15:48 Dose: 10 ml Triamterene/HCTZ (Dyazide 25-37.5 Mg) 1 each PO DAILY [facility] Triamterene/HCTZ (Dyazide 25-37.5 Mg) 1 each PO ONETIME ONE Stop: 08/01/17 20:31 Last Admin: 08/01/17 21:02 Dose: 1 each - Exam General: Alert, Oriented, Cooperative, No Acute Distress HEENT: Pupils Equal, Pupils Reactive, EOMI, Mucous Membr. Moist/[place] Neck: Supple, Trachea Midline, No JVD Lungs: Clear to Auscultation, Normal Respiratory Effort Cardiovascular: Regular Rate, Regular Rhythm GI/Abdominal Exam: Normal Bowel Sounds, Soft, No Organomegaly, No Distention, No Abnormal Bruit, No Mass, Guarding, Rigid, Rebound, Tender (both mid-lateral aspect of the abdomen). No: Distended (Male) Exam: Deferred Back Exam: Normal Inspection, Full Range of Motion Extremities: Normal Inspection, Normal Range of Motion, Non-Tender, No Pedal Edema, Normal Capillary Refill Peripheral Pulses: 3+: Dorsalis Pedis (L), Dorsalis Pedis (R) Skin: Warm, Dry, Intact Wound/Incisions: Healing Well Neurological: No New Focal Deficit Psy/Mental Status: Alert, Normal Affect, Normal Mood - Problem List Review Problem List Initiated/Reviewed/Updated: Yes - My Orders Last 24 Hours: My Active Orders 08/01/17 Breakfast Regular Diet [DIET] 08/02/17 09:00 HCTZ/Triamterene [Dyazide 25-37.5 MG] 1 each PO DAILY 08/06/17 12:00 Remove Patch 0 ea TRDERM Q7D - Plan Plan:: I/P: Acute: Acute Pancreatitis, Continues to Improve -Risk factors: EtOH abuse, Hypertryglyceridemia, Cocaine use -Likely 2/2 EtOH abuse, cannot rule out gallstones although CT negative and liver enzymes good -Clinically looks stable -[facility] Criteria: 1 on admission, 48 hours: incomplete due to no ABG; 2 points (1% predicted mortality) -WBC 11.22-->7.68-->8.79-->10.7--> 9.14--> 9.01 -CRP 1.4-->10.7-->16-->21-->15--> 9.1 -Lactic Acid 2.6-->1.2 -Anion Gap 18.5-->13.8-->9.6-->13.3 -Lipase 5814-->4795-->2215-->1232--> 1119, no change today -Abdominal CT (07/28/17): 1. Findings compatible with fairly severe pancreatitis. Fluid noted within the paracolic gutters extending into the pelvis. 2. Fatty infiltration within the liver. 3. Small hiatal hernia with gastroesophageal reflux of contrast. -Supportive care: IV fluids, Pain control, N/V control -NPO --> Will advance to clear liquids at lunch today -start D5NS once 3L NS given - decrease rate to 150--> stop today -Gallbladder U/S 07/30/17: 1. Fatty infiltration within the liver 2. Minimal free fluid within Morison's pouch 3. No additional abnormality see on RUQ abdominal US exam -Serial CT if indicated HTN, Improved -Acute -160/110 on admission -No chronic hypokalemia -Likely 2/2 pain with Acute Pancreatitis, detox, IV fluids -Hydralizine PRN/0.3mg Clonidine Patch -Continue HCTZ/Triamterene 25-37.5 mg po daily -Continue to Monitor EtOH Abuse, Chronic -[facility] protocol - 0 this AM -MCV 100-->102.9-->105 -AST 53 -Correct vitamin deficiencies --> Multivitamin, Thiamine, Folic Acid -Consult for substance abuse - refused LAC and Tele-psych consult Drug Abuse, Chronic -Positive Toxicology screen for Opiates, Cocaine, Benzodiazepines -States hasn't taken in about a month -Currently no symptoms of intoxication -Consult for substance abuse - refused LAC and Dr. Bell consult Resolved: S/p Hypomagenesmia -Mag 1.2 --> 2.0 -Pharmacy to supplement S/p Hypokalemia -Potassium 3.3--> 3.6 -Pharmacy to monitor and supplement Chronic: EtOH abuse Drug abuse Hiatal hernia with gastritis, on Protonix Hypertryglyceridemia Plan: He is clinically stable with improved blood pressure He feels is not quite ready for d/c Routine AM labs DVT Prophylaxis: SCD GI Prophylaxis: Protonix Other orders as indicated above Encourage to ambulate as tolerated Full Code: No PCP LOS >96 hours due to slow response to treatment. Offered d/c yesterday and this morning but feels he is not quite ready yet. He will let the incoming hospitalist or the sub provider sometime later today about his decision.
[2017-08-02] MEDS ORDERED: Hydrochlorothiazide/Triamterene 25-37.5 MG Cap PO SCH ×3 (09:00→21:00)
[2017-08-02] MEDS: Multivitamins,Therapeutic Tab PO SCH (09:19)
[2017-08-02] MEDS: Thiamine 100 MG Tab PO SCH (09:20)
[2017-08-02] MEDS: Pantoprazole 40 MG Tab.CR PO SCH ×2 (09:20→20:26)
[2017-08-02] MEDS: Calcium Carbonate 600 MG Tab PO SCH ×2 (09:20→20:26)
[2017-08-02] MEDS: Hydrochlorothiazide/Triamterene 25-37.5 MG Cap PO SCH (20:26)
[2017-08-02] MEDS: Temazepam 15 MG Cap PO PRN (21:59)
[2017-08-03] MEDS: oxyCODONE 5 MG Tab PO PRN (03:56)
[2017-08-03] MEDS: Ibuprofen 600 MG Tab PO PRN ×3 (03:57→22:12)
[2017-08-03] MEDS: Pantoprazole 40 MG Tab.CR PO SCH ×2 (09:00→20:46)
[2017-08-03] MEDS: Calcium Carbonate 600 MG Tab PO SCH ×2 (09:00→20:46)
[2017-08-03] MEDS: Thiamine 100 MG Tab PO SCH (09:00)
[2017-08-03] MEDS: Hydrochlorothiazide/Triamterene 25-37.5 MG Cap PO SCH (09:00)
[2017-08-03] MEDS: Multivitamins,Therapeutic Tab PO SCH (09:00)
--- NOTE | 2017-08-03 12:52 | PCM.PN ---
- General Info Date of Service: 08/03/17 Admission Dx/Problem (Free Text): Admission Diagnosis/Problem Admission Diagnosis/Problem Pancreatitis Subjective Update: In to see Alex. He is sitting in bed eating. Discussed eating foods that would not aggravate his pancreas. He is complaining of mild bilateral abdominal pain laterally. He has been ambulating regularly. No nausea or vomiting. No nursing complaints. Will adjust his BP medications today. Hopeful for discharge tomorrow. Functional Status: Reports: Pain Controlled, Tolerating Diet, Ambulating, Urinating - Review of Systems General: Reports: No Symptoms. Denies: Fever, Weakness, Fatigue, Malaise HEENT: Reports: No Symptoms Pulmonary: Reports: No Symptoms. Denies: Shortness of Breath, Cough, Sputum, Wheezing Cardiovascular: Reports: No Symptoms. Denies: Chest Pain, Palpitations, Dyspnea on Exertion, Edema, Lightheadedness Gastrointestinal: Reports: Abdominal Pain (mild bilateral upper quadrant laterally ). Denies: Constipation, Diarrhea, Nausea, Vomiting Genitourinary: Reports: No Symptoms Musculoskeletal: Reports: No Symptoms Skin: Reports: No Symptoms Neurological: Reports: No Symptoms Psychiatric: Reports: No Symptoms - Patient Data Vitals - Most Recent: Last Vital Signs Temp 97.9 F 08/03/17 08:58 Pulse 90 08/03/17 08:58 Resp 16 08/03/17 08:58 BP 142/91 H 08/03/17 08:58 Pulse Ox 97 08/03/17 08:58 Weight - Most Recent: 182 lb 6.4 oz I&O - Last 24 Hours: Intake & Output 08/02/17 08/03/17 08/03/17 22:59 06:59 14:59 Intake Total 900 1580 240 Output Total 2500 1800 Balance -1600 -220 240 Lab Results Last 24 Hours: Laboratory Results - last 24 hr 08/03/17 Range/Units 06:20 Lipase 1817 H (73-393) U/L Med Orders - Current: Current Medications Acetaminophen (Tylenol) 650 mg PO Q6H PRN PRN Reason: Pain/Fever Last Admin: 08/01/17 10:27 Dose: 650 mg Albuterol/Ipratropium (Duoneb 3.0-0.5 Mg/3 Ml) 3 ml NEB Q4H PRN PRN Reason: Shortness Of Breath/wheezing Amlodipine Besylate (Norvasc) 5 mg PO BEDTIME [facility] Bisacodyl (Dulcolax) 5 mg PO DAILY PRN PRN Reason: Constipation Calcium Carbonate/Glycine (Calcium Carbonate) 1,200 mg PO BID [facility] Last Admin: 08/03/17 09:00 Dose: 1,200 mg Chlordiazepoxide HCl (Librium) 25 mg PO Q8H PRN PRN Reason: Withdrawal Symptoms Last Admin: 07/31/17 04:27 Dose: 25 mg Clonidine HCl (Catapres) 0.1 mg PO Q4H PRN PRN Reason: Agitation Docusate Sodium (Colace) 100 mg PO BID PRN PRN Reason: Constipation Hydromorphone HCl (Dilaudid) 1 mg IVPUSH Q4H PRN PRN Reason: Pain Last Admin: 07/30/17 16:40 Dose: 1 mg Promethazine HCl 12.5 mg/ (Sodium Chloride) 50.5 mls @ 100 mls/hr IV Q6H PRN PRN Reason: Nausea/Vomiting Last Admin: 07/28/17 22:02 Dose: 100 mls/hr Ibuprofen (Motrin) 600 mg PO Q6H PRN PRN Reason: Pain (moderate 4-6) Last Admin: 08/03/17 03:57 Dose: 600 mg Lorazepam (Ativan) 2 mg IVPUSH Q4H PRN PRN Reason: Seizures Metoprolol Tartrate (Lopressor) 5 mg IVPUSH Q4H PRN PRN Reason: Tachycardia Miscellaneous Information (Remove Patch) 1 ea TRDERM Q72H PRN PRN Reason: patch removal Miscellaneous Information (Remove Patch) 0 ea TRDERM Q7D [facility] Multivitamins (Thera) 1 each PO DAILY [facility] Last Admin: 08/03/17 09:00 Dose: 1 each Ondansetron HCl (Zofran) 4 mg IV Q6H PRN PRN Reason: Nausea/Vomiting Last Admin: 07/28/17 19:59 Dose: 4 mg Pantoprazole Sodium (Protonix) 40 mg PO Q12HR [facility] Last Admin: 08/03/17 09:00 Dose: 40 mg Polyethylene Glycol (Miralax) 17 gm PO DAILY PRN PRN Reason: Constipation Scopolamine (Transderm-Scop) 1.5 mg TRDERM Q72H PRN PRN Reason: Nausea Last Admin: 07/28/17 22:17 Dose: 1.5 mg Senna/Docusate Sodium (Senna Plus) 1 tab PO BID PRN PRN Reason: Constipation Sodium Chloride (Saline Flush) 10 ml FLUSH ASDIRECTED PRN PRN Reason: Keep Vein Open Last Admin: 07/28/17 12:55 Dose: 10 ml Temazepam (Restoril) 15 mg PO BEDTIME PRN PRN Reason: Insomnia Last Admin: 08/02/17 21:59 Dose: 15 mg Thiamine HCl (Vitamin B-1) 100 mg PO DAILY [facility] Last Admin: 08/03/17 09:00 Dose: 100 mg Triamterene/HCTZ (Dyazide 25-37.5 Mg) 1 each PO DAILY [facility] Discontinued Medications Bumetanide (Bumex) 0.5 mg IVPUSH ONETIME ONE Stop: 08/01/17 13:55 Last Admin: 08/01/17 15:05 Dose: 0.5 mg Calcium Carbonate/Glycine (Calcium Carbonate) 1,200 mg PO BIDMEALS [facility] Clonidine HCl (Catapres-Tts 3) 0.3 mg TRDERM Q7D [facility] Last Admin: 07/30/17 12:06 Dose: 0.3 mg Clonidine HCl (Catapres) 0.2 mg PO ONETIME ONE Stop: 08/01/17 13:54 Last Admin: 08/01/17 15:06 Dose: 0.2 mg Diatrizoate Meglum/Diatrizoate Sod (Gastrografin 37%) 90 ml PO ONETIME ONE Stop: 07/28/17 14:37 Last Admin: 07/28/17 15:48 Dose: 90 ml Dicyclomine HCl (Bentyl) 20 mg PO ONETIME ONE Stop: 07/28/17 14:15 Last Admin: 07/28/17 14:28 Dose: 20 mg Diphenhydramine HCl (Benadryl) 25 mg IVPUSH ONETIME ONE Stop: 07/28/17 21:52 Last Admin: 07/28/17 22:06 Dose: 25 mg Diphtheria/Tetanus/Acell Pertussis (Adacel) 0.5 ml IM .ONCE ONE Stop: 07/29/17 08:31 Last Admin: 07/30/17 16:01 Dose: Not Given Folic Acid (Folic Acid) 1 mg PO DAILY [facility] Stop: 07/31/17 09:01 Last Admin: 07/31/17 08:12 Dose: 1 mg Hydralazine HCl (Apresoline) 20 mg IVPUSH Q4H PRN PRN Reason: Hypertension Last Admin: 08/01/17 09:11 Dose: 20 mg Hydromorphone HCl (Dilaudid) 0.5 mg IVPUSH ONETIME ONE Stop: 07/28/17 12:44 Last Admin: 07/28/17 12:56 Dose: 0.5 mg Hydromorphone HCl (Dilaudid) 0.5 mg IVPUSH ONETIME ONE Stop: 07/28/17 14:54 Last Admin: 07/28/17 15:03 Dose: 0.5 mg Hydromorphone HCl (Dilaudid) 0.5 mg IVPUSH Q2H PRN PRN Reason: Pain (severe 7-10) Last Admin: 07/28/17 19:59 Dose: 0.5 mg Hydromorphone HCl (Dilaudid) 1 mg IVPUSH Q4HR ONE Stop: 07/28/17 21:53 Last Admin: 07/28/17 22:16 Dose: 1 mg Sodium Chloride (Normal Saline) 1,000 mls @ 250 mls/hr IV ONETIME ONE Stop: 07/28/17 16:42 Last Admin: 07/28/17 12:56 Dose: 250 mls/hr Dextrose/Sodium Chloride (Dextrose 5%-Normal Saline) 1,000 mls @ 125 mls/hr IV ASDIRECTED [facility] Last Infusion: 07/29/17 13:01 Dose: 250 mls/hr Thiamine HCl 200 mg/ Sodium (Chloride) 52 mls @ 100 mls/hr IV ONETIME ONE Stop: 07/28/17 18:21 Last Admin: 07/28/17 20:07 Dose: Not Given Thiamine HCl 200 mg/ Sodium (Chloride) 52 mls @ 100 mls/hr IV ONETIME ONE Stop: 07/28/17 21:31 Last Admin: 07/28/17 21:22 Dose: 100 mls/hr Sodium Chloride (Normal Saline) 1,000 mls @ 999 mls/hr IV ASDIRECTED [facility] Stop: 07/30/17 21:01 Last Admin: 07/28/17 22:28 Dose: 999 mls/hr Magnesium Sulfate 2 gm/ Premix 50 mls @ 25 mls/hr IV Q2H [facility] Stop: 07/29/17 11:14 Last Admin: 07/29/17 10:23 Dose: 25 mls/hr Dextrose/Sodium Chloride (Dextrose 5%-Normal Saline) 1,000 mls @ 250 mls/hr IV ASDIRECTED [facility] Last Admin: 07/30/17 11:41 Dose: 250 mls/hr Dextrose/Sodium Chloride (Dextrose 5%-Normal Saline) 1,000 mls @ 125 mls/hr IV ASDIRECTED [facility] Last Admin: 07/30/17 20:25 Dose: 125 mls/hr Iopamidol (Isovue-300 (61%)) 125 ml IVPUSH ONETIME ONE Stop: 07/28/17 14:37 Last Admin: 07/28/17 15:48 Dose: 125 ml Magnesium Sulfate (Pharmacy To Dose - Magnesium Replacement) 0 dose .XX ASDIRECTED PRN PRN Reason: RX TO WATCH MAG LEVELS Ondansetron HCl (Zofran) 4 mg IVPUSH ONETIME ONE Stop: 07/28/17 12:44 Last Admin: 07/28/17 12:55 Dose: 4 mg Oxycodone HCl (Oxycodone) 5 mg PO Q4H PRN PRN Reason: Pain (moderate 4-6) Last Admin: 08/03/17 03:56 Dose: 5 mg Pantoprazole Sodium (Protonix Iv) 40 mg IVPUSH ONETIME ONE Stop: 07/28/17 12:44 Last Admin: 07/28/17 12:55 Dose: 40 mg Pantoprazole Sodium (Protonix Iv) 40 mg IV Q12HR [facility] Last Admin: 07/29/17 08:38 Dose: 40 mg Potassium Chloride (Pharmacy To Dose - Potassium Replacement) 0 dose .XX ASDIRECTED PRN PRN Reason: RX TO WATCH K LEVELS Potassium Chloride (Klor-Con M20) 40 meq PO Q4H [facility] Stop: 07/28/17 21:01 Last Admin: 07/28/17 22:41 Dose: 40 meq Potassium Chloride (Klor-Con M20) 40 meq PO ONETIME ONE Stop: 07/31/17 09:01 Last Admin: 07/31/17 09:22 Dose: 40 meq Potassium Chloride (Klor-Con M20) 40 meq PO Q4H [facility] Stop: 08/01/17 15:01 Last Admin: 08/01/17 18:58 Dose: 40 meq Sodium Chloride (Saline Flush) 10 ml FLUSH ONETIME ONE Stop: 07/28/17 14:37 Last Admin: 07/28/17 15:48 Dose: 10 ml Triamterene/HCTZ (Dyazide 25-37.5 Mg) 1 each PO DAILY [facility] Triamterene/HCTZ (Dyazide 25-37.5 Mg) 1 each PO ONETIME ONE Stop: 08/01/17 20:31 Last Admin: 08/01/17 21:02 Dose: 1 each Triamterene/HCTZ (Dyazide 25-37.5 Mg) 1 each PO DAILY [facility] Last Admin: 08/02/17 09:19 Dose: 1 each Triamterene/HCTZ (Dyazide 25-37.5 Mg) 1 each PO BID [facility] Last Admin: 08/03/17 09:00 Dose: 1 each - Exam Quality Assessment: DVT Prophylaxis General: Alert, Oriented, Cooperative, No Acute Distress HEENT: Pupils Equal, Pupils Reactive, EOMI, Mucous Membr. Moist/[place] Neck: Supple, Trachea Midline, No JVD Lungs: Clear to Auscultation, Normal Respiratory Effort Cardiovascular: Regular Rate, Regular Rhythm GI/Abdominal Exam: Normal Bowel Sounds, Soft, Non-Tender, No Organomegaly, No Distention, No Abnormal Bruit, No Mass, Pelvis Stable (Male) Exam: Deferred Back Exam: Normal Inspection, Full Range of Motion Extremities: Normal Inspection, Normal Range of Motion, Non-Tender, No Pedal Edema, Normal Capillary Refill Peripheral Pulses: 3+: Radial (L), Radial (R), Posterior Tibial (L), Posterior Tibial (R), Dorsalis Pedis (L), Dorsalis Pedis (R) Skin: Warm, Dry, Intact Neurological: No New Focal Deficit Psy/Mental Status: Alert, Normal Affect, Normal Mood - Problem List & Annotations (1) Alcoholism /alcohol abuse SNOMED Code(s): 6618255 Code(s): F10.20 - ALCOHOL DEPENDENCE, UNCOMPLICATED Status: Acute Priority: High Current Visit: Yes (2) Drug dependence SNOMED Code(s): 873124475 Code(s): F19.20 - OTHER PSYCHOACTIVE SUBSTANCE DEPENDENCE, UNCOMPLICATED Status: Acute Priority: High Current Visit: Yes (3) Pancreatitis SNOMED Code(s): 79514006 Code(s): K85.90 - ACUTE PANCREATITIS WITHOUT NECROSIS OR INFECTION, UNSP Status: Acute Priority: High Current Visit: Yes Qualifiers: Chronicity: acute Pancreatitis type: alcohol induced Acute pancreatitis complication: uninfected necrosis Qualified Code(s): K85.21 - Alcohol induced acute pancreatitis with uninfected necrosis (4) Hiatal hernia with gastroesophageal reflux SNOMED Code(s): 392866572 Code(s): K21.9 - GASTRO-ESOPHAGEAL REFLUX DISEASE WITHOUT ESOPHAGITIS; K44.9 - DIAPHRAGMATIC HERNIA WITHOUT OBSTRUCTION OR GANGRENE Status: Acute Priority: Low Current Visit: Yes (5) Hypertriglyceridemia SNOMED Code(s): 547154721 Code(s): E78.1 - PURE HYPERGLYCERIDEMIA Status: Acute Priority: Medium Current Visit: Yes (6) Hypokalemia SNOMED Code(s): 08455554 Code(s): E87.6 - HYPOKALEMIA Status: Resolved Priority: High Current Visit: Yes - Problem List Review Problem List Initiated/Reviewed/Updated: Yes - My Orders Last 24 Hours: My Active Orders 08/03/17 10:50 Consult to Coiled [employer]ing Supervisor [CONS] Routine 08/03/17 21:00 amLODIPine [Norvasc] 5 mg PO BEDTIME 08/04/17 09:00 HCTZ/Triamterene [Dyazide 25-37.5 MG] 1 each PO DAILY - Plan Plan:: I/P: Acute: Acute Pancreatitis, Continues to Improve -Risk factors: EtOH abuse, Hypertryglyceridemia, Cocaine use -Likely 2/2 EtOH abuse, cannot rule out gallstones although CT negative and liver enzymes good -Clinically looks stable -[place]'s Criteria: 1 on admission, 48 hours: incomplete due to no ABG; 2 points (1% predicted mortality) -WBC 11.22-->7.68-->8.79-->10.7--> 9.14--> 9.01 -CRP 1.4-->10.7-->16-->21-->15--> 9.1 -Lactic Acid 2.6-->1.2 -Anion Gap 18.5-->13.8-->9.6-->13.3 -Lipase 5814-->4795-->2215-->1232--> 1119--> -Abdominal CT (07/28/17): 1. Findings compatible with fairly severe pancreatitis. Fluid noted within the paracolic gutters extending into the pelvis. 2. Fatty infiltration within the liver. 3. Small hiatal hernia with gastroesophageal reflux of contrast. -Supportive care: IV fluids, Pain control, N/V control -NPO --> Will advance to clear liquids at lunch today -start D5NS once 3L NS given - decrease rate to 150--> stop today -Gallbladder U/S 07/30/17: 1. Fatty infiltration within the liver 2. Minimal free fluid within Morison's pouch 3. No additional abnormality see on RUQ abdominal US exam -Serial CT if indicated HTN, Improved -Acute -160/110 on admission -No chronic hypokalemia -Likely 2/2 pain with Acute Pancreatitis, detox, IV fluids -Hydralizine PRN/0.3mg Clonidine Patch - stop clonidine today after two 0.1mg Oral doses 8hr apart -Continue HCTZ/Triamterene 25-37.5 mg po daily, add norvasc 5mg bedtime -Continue to Monitor EtOH Abuse, Chronic -[facility] protocol - 0 this AM -MCV 100-->102.9-->105 stable -AST 53 -Correct vitamin deficiencies --> Multivitamin, Thiamine, Folic Acid -Consult for substance abuse - refused LAC and Tele-psych consult Drug Abuse, Chronic -Positive Toxicology screen for Opiates, Cocaine, Benzodiazepines -States hasn't taken in about a month -Currently no symptoms of intoxication -Consult for substance abuse - refused LAC and Dr. Bell consult Resolved: S/p Hypomagenesmia -Mag 1.2 --> 2.0 -Pharmacy to supplement S/p Hypokalemia -Potassium 3.3--> 3.6 -Pharmacy to monitor and supplement Chronic: EtOH abuse Drug abuse Hiatal hernia with gastritis, on Protonix Hypertryglyceridemia Plan: He is clinically stable with improved blood pressure He feels is not quite ready for d/c, possibly for Routine AM labs DVT Prophylaxis: SCD GI Prophylaxis: Protonix Other orders as indicated above Encourage to ambulate as tolerated Full Code: No PCP - needs to establish LOS >96 hours due to slow response to treatment. Has been offered discharge a few times but does not feel he is ready. Will switch medications and attempt to achieve better BP control now. Likely discharge tomorrow.
[2017-08-03] MEDS: cloNIDine 0.1 MG Tab PO SCH ×2 (15:28→22:13)
[2017-08-03] MEDS ORDERED: amLODIPine 5 MG Tab PO SCH (21:00)
[2017-08-03] MEDS: Temazepam 15 MG Cap PO PRN (22:12)
[2017-08-04] MEDS: cloNIDine 0.1 MG Tab PO SCH (06:52)
[2017-08-04] MEDS ORDERED: Hydrochlorothiazide/Triamterene 25-37.5 MG Cap PO SCH (09:00)
[2017-08-04] MEDS: Multivitamins,Therapeutic Tab PO SCH (09:07)
[2017-08-04] MEDS: Pantoprazole 40 MG Tab.CR PO SCH (09:07)
[2017-08-04] MEDS: Calcium Carbonate 600 MG Tab PO SCH (09:07)
[2017-08-04] MEDS: Thiamine 100 MG Tab PO SCH (09:07)
--- NOTE | 2017-08-04 09:24 | PCM.DCSUM1 ---
Discharge Summary - Hospital Course HPI Initial Comments: This is a 27 yo male with past medical hx/o EtOH and drug abuse who comes in for abdominal pain, nausea and vomiting. Pain started at 2 AM this morning, patient rates it a 10 out of 10 and describes it as a sharp, dull, achy sensation that bores through to his back. He reports no fever, chills, headache , diarrhea, chest pain, shortness of breath, or complaints. His symptoms improved after receiving IV fluids, Zofran, Dilaudid, Bentyl, and Protonix in the ED. His initial workup in the ED showed a CBC with Hgb 16, Hct 44.9, Plt 288, remarkable for elevated WBC 11.22 and MCV 100. His chemistry showed Na 142, potassium 3.5, BUN 5, creatinine 1.0, ALT 52, CRP <0.02 and is remarkable for elevated glucose 160, Anion Gap 18.5, AST 53, and lipase 5814. UA is not impressive for UTI. Toxicology screen is positive for opiates, benzodiazepines, cocaine and negative for EtOH. Abdominal X-ray shows no acute abnormal findings. Abdominal CT showed severe pancreatitis. He is subsequently admitted to the ICU. He is a full code. - Discharge Data Discharge Date: 08/04/17 (Admit date: 07/28/17) Discharge Disposition: Home, Self-Care 01 Condition: Good - Discharge Diagnosis/Problem(s) (1) Alcoholism /alcohol abuse SNOMED Code(s): 4427774 ICD Code: F10.20 - ALCOHOL DEPENDENCE, UNCOMPLICATED Status: Acute Priority: High Current Visit: Yes (2) Drug dependence SNOMED Code(s): 475174969 ICD Code: F19.20 - OTHER PSYCHOACTIVE SUBSTANCE DEPENDENCE, UNCOMPLICATED Status: Acute Priority: High Current Visit: Yes (3) Pancreatitis SNOMED Code(s): 97471031 ICD Code: K85.90 - ACUTE PANCREATITIS WITHOUT NECROSIS OR INFECTION, UNSP Status: Acute Priority: High Current Visit: Yes Qualifiers: Chronicity: acute Pancreatitis type: alcohol induced Acute pancreatitis complication: uninfected necrosis Qualified Code(s): K85.21 - Alcohol induced acute pancreatitis with uninfected necrosis (4) Hiatal hernia with gastroesophageal reflux SNOMED Code(s): 881643695 ICD Code: K21.9 - GASTRO-ESOPHAGEAL REFLUX DISEASE WITHOUT ESOPHAGITIS; K44.9 - DIAPHRAGMATIC HERNIA WITHOUT OBSTRUCTION OR GANGRENE Status: Acute Priority: Low Current Visit: Yes (5) Hypertriglyceridemia SNOMED Code(s): 316122095 ICD Code: E78.1 - PURE HYPERGLYCERIDEMIA Status: Acute Priority: Medium Current Visit: Yes (6) Hypokalemia SNOMED Code(s): 96209204 ICD Code: E87.6 - HYPOKALEMIA Status: Resolved Priority: High Current Visit: Yes - Patient Summary/Data Consults: Consultations 07/28/17 17:45 Consult to Generation Mechanic Helper [CONS] Routine Consult to Spiritual Care [CONS] Routine 07/30/17 08:38 Consult to Physician [CONS] Routine 08/03/17 10:50 Consult to Meteorological Engineer [CONS] Routine Labs Pending at D/C: None Recommended Follow-up Testing/Procedures: Establish with PCP, follow-up with PCP in 7-10 days Recommend Lipase and BMP to be checked by PCP at next visit. Hospital Course: Plan:: I/P: Acute: Acute Pancreatitis, Continues to Improve -Risk factors: EtOH abuse, Hypertryglyceridemia, Cocaine use -Likely 2/2 EtOH abuse, cannot rule out gallstones although CT negative and liver enzymes good -Clinically looks stable -Ofelia's Criteria: 1 on admission, 48 hours: incomplete due to no ABG; 2 points (1% predicted mortality) -WBC 11.22-->7.68-->8.79-->10.7--> 9.14--> 9.01, stable -CRP 1.4-->10.7-->16-->21-->15--> 9.1, stable -Lactic Acid 2.6-->1.2 -Anion Gap 18.5-->13.8-->9.6-->13.3, stable -Lipase 5814-->4795-->2215-->1232--> 1119-->1817-->2383 -Abdominal CT (07/28/17): 1. Findings compatible with fairly severe pancreatitis. Fluid noted within the paracolic gutters extending into the pelvis. 2. Fatty infiltration within the liver. 3. Small hiatal hernia with gastroesophageal reflux of contrast. -Supportive care: IV fluids, Pain control, N/V control -NPO --> Will advance to clear liquids at lunch today -start D5NS once 3L NS given - decrease rate to 150--> stop today -Gallbladder U/S 07/30/17: 1. Fatty infiltration within the liver 2. Minimal free fluid within Morison's pouch 3. No additional abnormality see on RUQ abdominal US exam -Serial CT if indicated HTN, Improved -Acute -160/110 on admission -No chronic hypokalemia -Likely 2/2 pain with Acute Pancreatitis, detox, IV fluids -Hydralizine PRN/0.3mg Clonidine Patch - stop clonidine today after two 0.1mg Oral doses 8hr apart -Continue HCTZ/Triamterene 25-37.5 mg po daily, add norvasc 5mg bedtime -Continue to Monitor EtOH Abuse, Chronic -[facility] protocol - 0 this AM -MCV 100-->102.9-->105 stable -AST 53 -Correct vitamin deficiencies --> Multivitamin, Thiamine, Folic Acid -Consult for substance abuse - refused LAC and Tele-psych consult Drug Abuse, Chronic -Positive Toxicology screen for Opiates, Cocaine, Benzodiazepines -States hasn't taken in about a month -Currently no symptoms of intoxication -Consult for substance abuse - refused LAC and Dr. Bell consult Resolved: S/p Hypomagenesmia -Mag 1.2 --> 2.0 -Pharmacy to supplement S/p Hypokalemia -Potassium 3.3--> 3.6 -Pharmacy to monitor and supplement Chronic: EtOH abuse Drug abuse Hiatal hernia with gastritis, on Protonix Hypertryglyceridemia Plan: He is clinically stable with improved blood pressure Routine AM labs DVT Prophylaxis: SCD GI Prophylaxis: Protonix Other orders as indicated above Encourage to ambulate as tolerated Full Code: No PCP - needs to establish - Patient Instructions Diet: No Alcoholic Beverages Diet, Other: [place] diet as tolerated Activity: As Tolerated Driving: Do Not Drive (today ) Showering/Bathing: May Shower Notify Provider of: Fever, Increased Pain, Nausea and/or Vomiting - Discharge Plan Prescriptions/Med Rec: amLODIPine [Norvasc] 5 mg PO BEDTIME #20 tablet HCTZ/Triamterene [Dyazide 25-37.5 MG] 1 each PO DAILY #20 cap Home Medications: Home Meds HCTZ/Triamterene [Dyazide 25-37.5 MG] 1 each PO DAILY #20 cap 08/04/17 [Rx] amLODIPine [Norvasc] 5 mg PO BEDTIME #20 tablet 08/04/17 [Rx] Patient Handouts: Acute Pancreatitis, [id number], Chemical Dependency, DASH Eating Plan, Abdominal Pain, Adult, [id number], [place]ard Diet Referrals: Seth Ford [Physician] - 08/11/17 10:30 am () - Discharge Summary/Plan Comment DC Time >30 min.: Yes (45 mins ) - General Info Date of Service: 08/04/17 Admission Dx/Problem (Free Text: Admission Diagnosis/Problem Admission Diagnosis/Problem Pancreatitis Subjective Update: In to see Alex today. He is doing very well. He has no abdominal pain currently. We discussed his life choices and avoiding drugs and ETOH, especailly while his pancreas is inflamed. His lipase had been trending down but it was slightly higher the past 2 days. The lipase level does not match his symptoms. He has no fever. He was advised to be cautious with what he is eating. He should eat very bland foods for the next several days. He had a very mild detox while here and refused psychiatry and LAC services. We discussed outpatient care as he does not have a PCP. He should establish with someone. We discussed Dr. Ford here at [facility] and this is an excellent choice. He will need BP monitoring. He does have a family history of HTN and reports his brother was placed on medication in his 20's. He was instructed to take his BP TID and keep a journal. He should bring this with to all appointments. He was placed on Dyazide and Norvasc while here and responded well. He will be discharged on these medications. Recommend f/u labs including lipase and BMP at a minimum. He should follow-up with a PCP in 7-10 days. He will be discharged today. This case was discussed with Dr. Magallon, hospitalist, prior to discharge. Functional Status: Reports: Pain Controlled, Tolerating Diet, Ambulating, Urinating. Denies: New Symptoms - Review of Systems General: Reports: No Symptoms. Denies: Fever, Weakness, Fatigue, Malaise HEENT: Reports: No Symptoms. Denies: Post Nasal Drip, Sore Throat Pulmonary: Reports: No Symptoms. Denies: Shortness of Breath, Pleuritic Chest Pain, Cough, Sputum, Wheezing Cardiovascular: Reports: No Symptoms. Denies: Chest Pain, Palpitations, Dyspnea on Exertion, Edema Gastrointestinal: Reports: No Symptoms. Denies: Abdominal Pain, Constipation, Diarrhea, Nausea, Vomiting Genitourinary: Reports: No Symptoms. Denies: Dysuria, Frequency, Burning Musculoskeletal: Reports: No Symptoms Skin: Reports: No Symptoms Neurological: Reports: No Symptoms Psychiatric: Reports: No Symptoms - Patient Data Vitals - Most Recent: Last Vital Signs Temp 96.4 F 08/04/17 07:50 Pulse 101 H 08/04/17 07:50 Resp 16 08/04/17 07:50 BP 122/80 08/04/17 07:50 Pulse Ox 97 08/04/17 07:50 Weight - Most Recent: 181 lb I&O - Last 24 hours: Intake & Output 08/03/17 08/04/17 08/04/17 22:59 06:59 14:59 Intake Total 890 1080 Output Total 400 Balance 890 680 Lab Results - Last 24 hrs: Laboratory Results - last 24 hr 08/04/17 08/04/17 Range/Units 05:24 05:24 WBC 10.55 H (4.23-9.07) K/mm3 RBC 4.51 L (4.63-6.08) M/mm3 Hgb 15.8 (13.7-17.5) gm/L Hct 46.0 (40.1-51.0) % MCV 102.0 H (79.0-92.2) fl MCH 35.0 H (25.7-32.2) pg MCHC 34.3 (32.2-35.5) g/dl RDW Std Deviation 52.9 H (35.1-43.9) fL Plt Count 555 H (163-337) K/mm3 MPV 9.4 (9.4-12.3) fl Neut % (Auto) 60.5 (34.0-67.9) % Lymph % (Auto) 16.4 L (21.8-53.1) % [place] % (Auto) 18.4 H (5.3-12.2) % Eos % (Auto) 3.0 (0.8-7.0) Baso % (Auto) 0.7 (0.1-1.2) % Neut # (Auto) 6.38 H (1.78-5.38) K/mm3 Lymph # (Auto) 1.73 (1.32-3.57) K/mm3 [place] # (Auto) 1.94 H (0.30-0.82) K/mm3 Eos # (Auto) 0.32 (0.04-0.54) K/mm3 Baso # (Auto) 0.07 (0.01-0.08) K/mm3 Manual Slide Review Abnormal smear Sodium 136 (136-145) mEq/L Potassium 4.1 (3.5-5.1) mEq/L Chloride 97 L (98-107) mEq/L Carbon Dioxide 30 (21-32) mEq/L Anion Gap 13.1 (5-15) BUN 17 (7-18) mg/dL Creatinine 1.1 (0.7-1.3) mg/dL Est Cr Clr Drug Dosing 119.21 mL/min Estimated GFR (MDRD) > 60 (>60) mL/min BUN/Creatinine Ratio 15.5 (14-18) Glucose 107 H (74-106) mg/dL Calcium 10.5 H (8.5-10.1) mg/dL Magnesium 2.1 (1.8-2.4) mg/dl Lipase 2383 H (73-393) U/L Med Orders - Current: Current Medications Acetaminophen (Tylenol) 650 mg PO Q6H PRN PRN Reason: Pain/Fever Last Admin: 08/01/17 10:27 Dose: 650 mg Albuterol/Ipratropium (Duoneb 3.0-0.5 Mg/3 Ml) 3 ml NEB Q4H PRN PRN Reason: Shortness Of Breath/wheezing Amlodipine Besylate (Norvasc) 5 mg PO BEDTIME [facility] Last Admin: 08/03/17 20:43 Dose: 5 mg Bisacodyl (Dulcolax) 5 mg PO DAILY PRN PRN Reason: Constipation Calcium Carbonate/Glycine (Calcium Carbonate) 1,200 mg PO BID [facility] Last Admin: 08/04/17 09:07 Dose: 1,200 mg Chlordiazepoxide HCl (Librium) 25 mg PO Q8H PRN PRN Reason: Withdrawal Symptoms Last Admin: 07/31/17 04:27 Dose: 25 mg Clonidine HCl (Catapres) 0.1 mg PO Q4H PRN PRN Reason: Agitation Clonidine HCl (Catapres) 0.1 mg PO Q8H [facility] Last Admin: 08/04/17 06:52 Dose: 0.1 mg Docusate Sodium (Colace) 100 mg PO BID PRN PRN Reason: Constipation Hydromorphone HCl (Dilaudid) 1 mg IVPUSH Q4H PRN PRN Reason: Pain Last Admin: 07/30/17 16:40 Dose: 1 mg Promethazine HCl 12.5 mg/ (Sodium Chloride) 50.5 mls @ 100 mls/hr IV Q6H PRN PRN Reason: Nausea/Vomiting Last Admin: 07/28/17 22:02 Dose: 100 mls/hr Ibuprofen (Motrin) 600 mg PO Q6H PRN PRN Reason: Pain (moderate 4-6) Last Admin: 08/03/17 22:12 Dose: 600 mg Lorazepam (Ativan) 2 mg IVPUSH Q4H PRN PRN Reason: Seizures Metoprolol Tartrate (Lopressor) 5 mg IVPUSH Q4H PRN PRN Reason: Tachycardia Miscellaneous Information (Remove Patch) 1 ea TRDERM Q72H PRN PRN Reason: patch removal Multivitamins (Thera) 1 each PO DAILY [facility] Last Admin: 08/04/17 09:07 Dose: 1 each Ondansetron HCl (Zofran) 4 mg IV Q6H PRN PRN Reason: Nausea/Vomiting Last Admin: 07/28/17 19:59 Dose: 4 mg Pantoprazole Sodium (Protonix) 40 mg PO Q12HR [facility] Last Admin: 08/04/17 09:07 Dose: 40 mg Polyethylene Glycol (Miralax) 17 gm PO DAILY PRN PRN Reason: Constipation Scopolamine (Transderm-Scop) 1.5 mg TRDERM Q72H PRN PRN Reason: Nausea Last Admin: 07/28/17 22:17 Dose: 1.5 mg Senna/Docusate Sodium (Senna Plus) 1 tab PO BID PRN PRN Reason: Constipation Sodium Chloride (Saline Flush) 10 ml FLUSH ASDIRECTED PRN PRN Reason: Keep Vein Open Last Admin: 07/28/17 12:55 Dose: 10 ml Temazepam (Restoril) 15 mg PO BEDTIME PRN PRN Reason: Insomnia Last Admin: 08/03/17 22:12 Dose: 15 mg Thiamine HCl (Vitamin B-1) 100 mg PO DAILY [facility] Last Admin: 08/04/17 09:07 Dose: 100 mg Triamterene/HCTZ (Dyazide 25-37.5 Mg) 1 each PO DAILY [facility] Last Admin: 08/04/17 09:07 Dose: 1 each Discontinued Medications Bumetanide (Bumex) 0.5 mg IVPUSH ONETIME ONE Stop: 08/01/17 13:55 Last Admin: 08/01/17 15:05 Dose: 0.5 mg Calcium Carbonate/Glycine (Calcium Carbonate) 1,200 mg PO BIDMEALS [facility] Clonidine HCl (Catapres-Tts 3) 0.3 mg TRDERM Q7D [facility] Last Admin: 07/30/17 12:06 Dose: 0.3 mg Clonidine HCl (Catapres) 0.2 mg PO ONETIME ONE Stop: 08/01/17 13:54 Last Admin: 08/01/17 15:06 Dose: 0.2 mg Diatrizoate Meglum/Diatrizoate Sod (Gastrografin 37%) 90 ml PO ONETIME ONE Stop: 07/28/17 14:37 Last Admin: 07/28/17 15:48 Dose: 90 ml Dicyclomine HCl (Bentyl) 20 mg PO ONETIME ONE Stop: 07/28/17 14:15 Last Admin: 07/28/17 14:28 Dose: 20 mg Diphenhydramine HCl (Benadryl) 25 mg IVPUSH ONETIME ONE Stop: 07/28/17 21:52 Last Admin: 07/28/17 22:06 Dose: 25 mg Diphtheria/Tetanus/Acell Pertussis (Adacel) 0.5 ml IM .ONCE ONE Stop: 07/29/17 08:31 Last Admin: 07/30/17 16:01 Dose: Not Given Folic Acid (Folic Acid) 1 mg PO DAILY [facility] Stop: 07/31/17 09:01 Last Admin: 07/31/17 08:12 Dose: 1 mg Hydralazine HCl (Apresoline) 20 mg IVPUSH Q4H PRN PRN Reason: Hypertension Last Admin: 08/01/17 09:11 Dose: 20 mg Hydromorphone HCl (Dilaudid) 0.5 mg IVPUSH ONETIME ONE Stop: 07/28/17 12:44 Last Admin: 07/28/17 12:56 Dose: 0.5 mg Hydromorphone HCl (Dilaudid) 0.5 mg IVPUSH ONETIME ONE Stop: 07/28/17 14:54 Last Admin: 07/28/17 15:03 Dose: 0.5 mg Hydromorphone HCl (Dilaudid) 0.5 mg IVPUSH Q2H PRN PRN Reason: Pain (severe 7-10) Last Admin: 07/28/17 19:59 Dose: 0.5 mg Hydromorphone HCl (Dilaudid) 1 mg IVPUSH Q4HR ONE Stop: 07/28/17 21:53 Last Admin: 07/28/17 22:16 Dose: 1 mg Sodium Chloride (Normal Saline) 1,000 mls @ 250 mls/hr IV ONETIME ONE Stop: 07/28/17 16:42 Last Admin: 07/28/17 12:56 Dose: 250 mls/hr Dextrose/Sodium Chloride (Dextrose 5%-Normal Saline) 1,000 mls @ 125 mls/hr IV ASDIRECTED [facility] Last Infusion: 07/29/17 13:01 Dose: 250 mls/hr Thiamine HCl 200 mg/ Sodium (Chloride) 52 mls @ 100 mls/hr IV ONETIME ONE Stop: 07/28/17 18:21 Last Admin: 07/28/17 20:07 Dose: Not Given Thiamine HCl 200 mg/ Sodium (Chloride) 52 mls @ 100 mls/hr IV ONETIME ONE Stop: 07/28/17 21:31 Last Admin: 07/28/17 21:22 Dose: 100 mls/hr Sodium Chloride (Normal Saline) 1,000 mls @ 999 mls/hr IV ASDIRECTED [facility] Stop: 07/30/17 21:01 Last Admin: 07/28/17 22:28 Dose: 999 mls/hr Magnesium Sulfate 2 gm/ Premix 50 mls @ 25 mls/hr IV Q2H [facility] Stop: 07/29/17 11:14 Last Admin: 07/29/17 10:23 Dose: 25 mls/hr Dextrose/Sodium Chloride (Dextrose 5%-Normal Saline) 1,000 mls @ 250 mls/hr IV ASDIRECTED [facility] Last Admin: 07/30/17 11:41 Dose: 250 mls/hr Dextrose/Sodium Chloride (Dextrose 5%-Normal Saline) 1,000 mls @ 125 mls/hr IV ASDIRECTED [facility] Last Admin: 07/30/17 20:25 Dose: 125 mls/hr Iopamidol (Isovue-300 (61%)) 125 ml IVPUSH ONETIME ONE Stop: 07/28/17 14:37 Last Admin: 07/28/17 15:48 Dose: 125 ml Magnesium Sulfate (Pharmacy To Dose - Magnesium Replacement) 0 dose .XX ASDIRECTED PRN PRN Reason: RX TO WATCH MAG LEVELS Miscellaneous Information (Remove Patch) 0 ea TRDERM ONETIME ONE Stop: 08/03/17 22:16 Last Admin: 08/03/17 22:14 Dose: 1 ea Ondansetron HCl (Zofran) 4 mg IVPUSH ONETIME ONE Stop: 07/28/17 12:44 Last Admin: 07/28/17 12:55 Dose: 4 mg Oxycodone HCl (Oxycodone) 5 mg PO Q4H PRN PRN Reason: Pain (moderate 4-6) Last Admin: 08/03/17 03:56 Dose: 5 mg Pantoprazole Sodium (Protonix Iv) 40 mg IVPUSH ONETIME ONE Stop: 07/28/17 12:44 Last Admin: 07/28/17 12:55 Dose: 40 mg Pantoprazole Sodium (Protonix Iv) 40 mg IV Q12HR [facility] Last Admin: 07/29/17 08:38 Dose: 40 mg Potassium Chloride (Pharmacy To Dose - Potassium Replacement) 0 dose .XX ASDIRECTED PRN PRN Reason: RX TO WATCH K LEVELS Potassium Chloride (Klor-Con M20) 40 meq PO Q4H [facility] Stop: 07/28/17 21:01 Last Admin: 07/28/17 22:41 Dose: 40 meq Potassium Chloride (Klor-Con M20) 40 meq PO ONETIME ONE Stop: 07/31/17 09:01 Last Admin: 07/31/17 09:22 Dose: 40 meq Potassium Chloride (Klor-Con M20) 40 meq PO Q4H [facility] Stop: 08/01/17 15:01 Last Admin: 08/01/17 18:58 Dose: 40 meq Sodium Chloride (Saline Flush) 10 ml FLUSH ONETIME ONE Stop: 07/28/17 14:37 Last Admin: 07/28/17 15:48 Dose: 10 ml Triamterene/HCTZ (Dyazide 25-37.5 Mg) 1 each PO DAILY [facility] Triamterene/HCTZ (Dyazide 25-37.5 Mg) 1 each PO ONETIME ONE Stop: 08/01/17 20:31 Last Admin: 08/01/17 21:02 Dose: 1 each Triamterene/HCTZ (Dyazide 25-37.5 Mg) 1 each PO DAILY [facility] Last Admin: 08/02/17 09:19 Dose: 1 each Triamterene/HCTZ (Dyazide 25-37.5 Mg) 1 each PO BID [facility] Last Admin: 08/03/17 09:00 Dose: 1 each - Exam Quality Assessment: Reports: DVT Prophylaxis General: Reports: Alert, Oriented, Cooperative, No Acute Distress HEENT: Reports: Pupils Equal, Pupils Reactive, EOMI, Mucous Membr. Moist/[place] Neck: Reports: Supple, Trachea Midline, No JVD Lungs: Reports: Clear to Auscultation, Normal Respiratory Effort Cardiovascular: Reports: Regular Rate, Regular Rhythm GI/Abdominal Exam: Normal Bowel Sounds, Soft, Non-Tender, No Organomegaly, No Distention, No Abnormal Bruit, No Mass, Pelvis Stable (Male) Exam: Deferred Rectal (Males) Exam: Deferred Back Exam: Reports: Normal Inspection, Full Range of Motion Extremities: Normal Inspection, Normal Range of Motion, Non-Tender, No Pedal Edema, Normal Capillary Refill Skin: Reports: Warm, Dry, Intact Neurological: Reports: No New Focal Deficit Psy/Mental Status: Reports: Alert, Normal Affect, Normal Mood
== END 2017-08-04 10:23 | disposition home or self-care (01) | DRG 440 ==
LOC: JD.ED 12:18 → JD.ICU 16:46 → JD.ED 17:02 → JD.MS 07-29 20:39
PROVIDERS: ADMIT Internal Medicine; ATTEND Internal Medicine
DX: K85.20 Alcohol induced acute pancreatitis without necrosis or infection (principal); F10.20 Alcohol dependence, uncomplicated; F14.10 Cocaine abuse, uncomplicated; F13.10 Sedative, hypnotic or anxiolytic abuse, uncomplicated; F11.10 Opioid abuse, uncomplicated; K44.9 Diaphragmatic hernia without obstruction or gangrene; E78.1 Pure hyperglyceridemia; I10 Essential (primary) hypertension; K29.70 Gastritis, unspecified, without bleeding; E83.42 Hypomagnesemia; E87.6 Hypokalemia; K59.00 Constipation, unspecified; G47.00 Insomnia, unspecified
CPT/HCPCS: 36415; 74019; 74019-26; 74177; 74177-26; 76705; 76705-26; 80048; 80053; 80061; 80306; 81001; 82962; 83036; 83605; 83615; 83690; 83735; 85025; 86140; 96361; 96374; 96375; 96376; 99284; 99285-25; A9270-GY; C9113; G0480; J0360; J1170; J1200; J2405; J2550; J3411; J3475; J7030; J7040; J7042; J7050; Q9963; Q9967